=== PATIENT | female | born 1945 | race American Indian/Alaskan Native ===

== ENCOUNTER 2017-02-02 05:20 | Inpatient (IN) | payer MEDICARE, BC ==
[2017-02-02 05:33] VITALS: BMI 26.2
[2017-02-02] MEDS ORDERED: Pantoprazole 40 MG in Sodium Chloride 0.9% 100 ML IV STA (05:40)
[2017-02-02] MEDS ORDERED: Sodium Chloride 0.9% 1,000 ML IV STA (05:40)
[2017-02-02] MEDS ORDERED: Morphine 2 mg/ml ISec IVP STA (05:41)
[2017-02-02 05:59] LABS: PH,URINE 7.5 (4.7-8.0); URINE BILIRUBIN NEGATIVE (NEGATIVE); URINE BLOOD TRACE-INTACT (NEGATIVE); URINE GLUCOSE (UA) 500 mg/dL (NEGATIVE); URINE KETONE NEGATIVE (NEGATIVE); URINE LEUKOCYTE ESTERASE MODERATE Leu/uL (NEGATIVE); URINE PROTEIN 30 mg/dL (<30 mg/dL)
--- NOTE | 2017-02-02 06:10 | ED PDOC ---
Arrival/HPI - General Chief Complaint: Abdominal Pain Time Seen by Provider: 02/02/17 05:24 Historian: Patient - History of Present Illness Narrative History of Present Illness (Text): 02/02/17 06:06 Lisa Blake is a 71 year old female, whose past medical history includes CAD with stents, anemia, diabetes, and hypertension, presents to the emergency department complaining of abdominal pain associated with nausea and vomiting since 10 p.m. last night. No relieving or exacerbating factors. Denies fever, chills, headache, dizziness, diarrhea, urinary symptoms, or any other complaints at this time. Time/Duration: Other (10 pm last night ) Symptom Onset: Gradual Symptom Course: Unchanged Severity Level: Mild Activities at Onset: Light Context: Home Past Medical History - Provider Review Nursing Documentation Reviewed: Yes - Infectious Disease Hx of Infectious Diseases: None - Reproductive Menopause: Yes - Cardiac Hx Hypertension: Yes - Endocrine/Metabolic Hx Diabetes Mellitus Type 1: Yes - Hematological/Oncological Hx Anemia: Yes - Psychiatric Hx Substance Use: No - Surgical History Hx Cardiac Catheterization: Yes (2 stents) - Anesthesia Hx Anesthesia: Yes Hx Anesthesia Reactions: No Hx Malignant Hyperthermia: No Family/Social History - Physician Review Nursing Documentation Reviewed: Yes Family/Social History: No Known Family HX Smoking Status: Never Smoked Hx Alcohol Use: No Hx Substance Use: No Allergies/Home Meds Allergies/Adverse Reactions: Allergies No Known Allergies Allergy (Verified 02/02/17 05:37) Home Medications: Home Meds Medication Instructions Recorded Confirmed Metformin HCl [Metformin] 1,000 mg PO DAILY 04/10/12 02/06/17 Nebivolol [Bystolic] 5 mg PO HS 04/10/12 02/06/17 Fesoterodine Fumarate [Toviaz] 4 mg PO DAILY 06/11/15 02/06/17 Aspirin [Adult Low Dose Aspirin EC] 81 mg PO AMHS 12/20/16 02/06/17 Folic Acid 1 mg PO BID 12/20/16 02/06/17 GlipiZIDE [Glucotrol] 20 mg PO DAILY 12/20/16 02/06/17 Pantoprazole Sodium [Protonix] 1 tab PO DAILY 02/02/17 02/06/17 Review of Systems - Physician Review All systems were reviewed & negative as marked: Yes - Review of Systems Constitutional: Normal. absent: Fatigue, Fevers Respiratory: Normal. absent: SOB, Cough Cardiovascular: Normal. absent: Chest Pain Gastrointestinal: Abdominal Pain, Nausea, Vomiting. absent: Diarrhea Genitourinary Female: Normal. absent: Dysuria Neurological: Normal. absent: Headache, Dizziness Psychiatric: Normal Physical Exam Vital Signs Reviewed: Yes Vital Signs Temp Pulse Resp BP Pulse Ox 02/02/17 14:53 100.8 F H 112 H 18 148/78 99 02/02/17 11:35 98.5 F 92 H 18 183/84 H 99 02/02/17 08:31 98.7 F 82 18 173/67 H 99 02/02/17 07:30 82 18 168/90 H 98 02/02/17 05:43 98.2 F 02/02/17 05:33 76 18 169/86 H 100 Temperature: Afebrile Blood Pressure: Hypertensive Pulse: Regular Respiratory Rate: Normal Appearance: Positive for: Well-Appearing, Non-Toxic, Comfortable Pain Distress: None Mental Status: Positive for: Alert and Oriented X 3 - Systems Exam Head: Present: Atraumatic, Normocephalic Pupils: Present: PERRL Extroacular Muscles: Present: EOMI Conjunctiva: Present: Normal Respiratory/Chest: Present: Clear to Auscultation, Good Air Exchange. No: Respiratory Distress, Accessory Muscle Use Cardiovascular: Present: Regular Rate and Rhythm, Normal S1, S2. No: Murmurs Abdomen: No: Tenderness, Distention, Normal Bowel Sounds ( distant bowel sounds ), Peritoneal Signs Upper Extremity: Present: Normal Inspection. No: Cyanosis, Edema Lower Extremity: Present: Normal Inspection. No: Edema Neurological: Present: GCS=15, CN II-XII Intact, Speech Normal Skin: Present: Warm, Dry, Normal Color. No: Rashes Psychiatric: Present: Alert, Oriented x 3, Normal Insight, Normal Concentration Medical Decision Making ED Course and Treatment: 02/02/17 06:11 Impression: A 71 year old female who presents to the emergency department complaining of abdominal pain associated with nausea and vomiting since 10 pm last night. Plan: -- CT abdomen pelvis -- EKG -- Labs, cardiac enzymes -- Morphine -- Protonix -- IV fluids -- Blood culture -- Urine culture -- Urinalysis -- Reassess and disposition Progress Notes: 02/02/17 06:13 EKG reviewed by me: NSR @ 79 bpm. Normal [place]. Normal interval. - Lab Interpretations Microbiology Results: Microbiology Results 02/02/17 06:30 Blood-Venous Blood Culture - Preliminary NO GROWTH AFTER 4 DAYS 02/02/17 06:00 Blood-Venous Blood Culture - Preliminary NO GROWTH AFTER 4 DAYS 02/02/17 05:50 Urine,Clean Catch Urine Culture - Final 10-50,000 CFU/ML. MULTIPLE SPECIES. PROBABLE CONTAMINATION. Lab Results: 02/02/17 06:00 02/02/17 06:00 Lab Results 02/02/17 12:50: Triglycerides 67, Cholesterol 110 L, LDL Cholesterol Direct 54, HDL Cholesterol 34 02/02/17 08:30: pO2 196 H, VBG pH 7.38, VBG pCO2 42.0, VBG HCO3 24.8, VBG Total CO2 26.1, VBG O2 Sat (Calc) 99.2 H, VBG Base Excess -0.4 L, VBG Potassium 4.4, Sodium 135.0, Chloride 104.0, Glucose 278 H, Lactate 1.6, FiO2 21.0, Venous Blood Potassium 4.4 02/02/17 06:00: WBC 13.1 H D, RBC 5.05, Hgb 9.8 L, Hct 29.2 L, MCV 57.8 L, MCH 19.4 L, MCHC 33.6, RDW 31.6 H, Plt Count 338, Neutrophils % (Manual) 69, Band Neutrophils % 1, Lymphocytes % (Manual) 24, Monocytes % (Manual) 5, Eosinophils % (Manual) 1, Nucleated RBC % 4, Platelet Evaluation Normal, Hypochromasia 3+, Anisocytosis (manual) Slight, Microcytosis (manual) Slight, PT 11.7, INR 1.08, APTT 28.0, Sodium 135, Chloride 98, Potassium 4.3, Carbon Dioxide 25, Anion Gap 16, BUN 13, Creatinine 1.1, Est GFR ( Amer) 59, Est GFR (Non-Af Amer) 49 , Random Glucose 258 H, Calcium 9.6, Total Bilirubin 1.4 H, AST 24, ALT 12, Alkaline Phosphatase 72, Lactate Dehydrogenase 390, Total Creatine Kinase 24 L, Troponin I < 0.01, Total Protein 8.8 H, Albumin 4.4, Globulin 4.4, Albumin/ Globulin Ratio 1.0 L, Amylase 109, Lipase 67 02/02/17 05:50: Urine Color Yellow, Urine Appearance Cloudy, Urine pH 7.5, Ur Specific [place] 1.025, Urine Protein 30 H, Urine Glucose (UA) 500 H, Urine Ketones Negative, Urine Blood Trace-intact H, Urine Nitrate Negative, Urine Bilirubin Negative, Urine Urobilinogen 1.0 H, Ur Leukocyte Esterase Moderate H, Urine RBC 1 - 3, Urine WBC 2 - 5, Ur Epithelial Cells 1 - 3, Urine Bacteria Small, Urine Other Uyeast - RAD Interpretation Radiology Orders: 02/02/17 05:40 ABD & PELVIS W/O PO OR IV CONT [CT] Stat 02/02/17 07:31 ABDOMEN COMPLETE [US] Stat 02/02/17 09:34 BILIARY SCAN (HIDA) [NM] Stat - Medication Orders Current Medication Orders: Discontinued Medications Acetaminophen (Tylenol 325mg Tab) Confirm Administered Dose 650 mg .ROUTE .STK- MED ONE Stop: 02/02/17 14:59 Last Admin: 02/02/17 14:59 Dose: 650 MG Comments: vo dr stubbs/trey [facility] Pain/Vitals Document 02/02/17 14:59 SZA (Rec: 02/02/17 15:10 SZA [id number]) Pain Reassessment Is This A Pain ReAssessment? No Sleep Is patient sleeping during reassessment? No Presence of Pain Presence of Pain No Acetaminophen (Tylenol 325mg Tab) 650 mg PO Q6H PRN PRN Reason: Temperature Last Admin: 02/06/17 05:15 Dose: 650 MG Re-Assess: [facility] Pain/Vitals Document 02/06/17 07:30 SD (Rec: 02/06/17 07:52 SD [id number]) Vitals Temperature (97.6 F-99.6 F) 99.4 F Temperature Source Oral Bacitracin (Bacitracin) Confirm Administered Dose 50,000 unit .ROUTE .STK-MED ONE Stop: 02/02/17 21:58 Bupivacaine HCl (Marcaine 0.5%) Confirm Administered Dose 30 ml .ROUTE .STK-MED ONE Stop: 02/02/17 20:23 Last Admin: 02/02/17 22:22 Dose: 15 ML Cyproheptadine HCl (Periactin) 4 mg PO BID GEMINI Last Admin: 02/06/17 09:11 Dose: 4 MG Esmolol HCl (Brevibloc) Confirm Administered Dose 100 mg IV .STK-MED ONE Stop: 02/02/17 21:17 Esmolol HCl (Brevibloc) Confirm Administered Dose 100 mg IV .STK-MED ONE Stop: 02/02/17 21:19 Etomidate (Amidate) Confirm Administered Dose 20 mg IV .STK-MED ONE Stop: 02/02/17 20:55 Fentanyl (Fentanyl) Confirm Administered Dose 100 mcg .ROUTE .STK-MED ONE Stop: 02/02/17 20:51 Glycopyrrolate (Robinul) Confirm Administered Dose 0.4 mg .ROUTE .STK-MED ONE Stop: 02/02/17 22:29 Heparin Sodium (Porcine) (Heparin) 5,000 units SC Q12 GEMINI PRN Reason: Protocol Last Admin: 02/06/17 09:11 Dose: Not Given Non-Admin Reason: Patient Refused Home Med (Home Med) 1 unit PO DAILY [facility] Last Admin: 02/05/17 11:07 Dose: 1 UNIT Home Med (Home Med) 1 unit PO DAILY [facility] Last Admin: 02/06/17 09:10 Dose: 1 UNIT Comments: last pill, bottle given to patient need to bring in refill. TCU made aware when given report Hydromorphone HCl (Dilaudid) 0.5 mg IVP Q4H PRN PRN Reason: Pain, moderate (4-7) Last Admin: 02/04/17 02:09 Dose: 0.5 MG MAR Pain Assessment Document 02/04/17 02:09 [facility] [place]Rec: 02/04/17 02:[address]) Pain Reassessment Is this a pain reassessment? No Presence of Pain Presence of Pain Yes Pain Scale Used Pain Scale Used Numeric Location Pain Location Body Site Abdomen Description Description Pressure Intensity of Pain at present 8 Pain Behavior Restlessness Facial Grimacing Alleviating Factors/Management Medication Techniques Alleviating Factors Medication IVP Administration Document 02/04/17 02:09 [facility] [place]Rec: 02/04/17 02:[address]) Charges for Administration # of IVP Administrations 1 Hydromorphone HCl (Dilaudid) 0.5 mg IVP Q15M PRN PRN Reason: Pain, moderate (4-7) Stop: 02/03/17 00:42 Sodium Chloride (Sodium Chloride 0.9%) 1,000 mls @ 100 mls/hr IV .Q10H STA Stop: 02/02/17 15:39 Last Admin: 02/02/17 06:20 Dose: 100 MLS/HR eMAR Start Stop Document 02/02/17 06:20 DINH (Rec: 02/02/17 06:21 DINH [id number]) Intravenous Solution Start Date 02/02/17 Start Time 06:21 End Date 02/02/17 End time 14:00 Total Infusion Time 459 Pantoprazole Sodium 40 mg/ (Sodium Chloride) 100 mls @ 400 mls/hr IV STAT STA Stop: 02/02/17 05:54 Last Admin: 02/02/17 06:15 Dose: 400 MLS/HR eMAR Start Stop Document 02/02/17 06:15 DINH (Rec: 02/02/17 06:[address]) Intravenous Solution Start Date 02/02/17 Start Time 06:15 Metronidazole (Flagyl) 100 mls @ 100 mls/hr IVPB Q8 GEMINI PRN Reason: Protocol Last Admin: 02/03/17 06:25 Dose: 100 MLS/HR eMAR Start Stop Document 02/03/17 06:25 STOCP (Rec: 02/03/17 06:25 STOCP [id number]) Intravenous Solution Start Date 02/03/17 Start Time 06:25 End Date 02/03/17 End time 07:25 Total Infusion Time 60 Piperacillin Sod/Tazobactam Sod (Zosyn 3.375 In Ns 100ml) 100 mls @ 200 mls/hr IVPB Q6 GEMINI PRN Reason: Protocol Stop: 02/05/17 12:29 Last Admin: 02/02/17 19:00 Dose: 200 MLS/HR eMAR Start Stop Document 02/02/17 19:00 SD (Rec: 02/02/17 19:00 SD [id number]) Intravenous Solution Start Date 02/02/17 Start Time 19:00 End Date 02/02/17 End time 19:30 Total Infusion Time 30 Dextrose/Sodium Chloride (Dextrose 5%/0.45% Ns 1000 Ml) 1,000 mls @ 80 mls/hr IV .[id number] [facility] Last Admin: 02/02/17 14:03 Dose: 80 MLS/HR eMAR Start Stop Document 02/02/17 14:03 SZA (Rec: 02/02/17 14:04 SZA [id number]) Intravenous Solution Start Date 02/02/17 Start Time 14:00 Vancomycin HCl (Vancomycin 1gm) 250 mls @ 167 mls/hr IVPB STAT STA PRN Reason: Protocol Stop: 02/02/17 21:27 Last Admin: 02/02/17 20:07 Dose: 167 MLS/HR eMAR Start Stop Document 02/02/17 20:07 STOCP (Rec: 02/02/17 20:07 [id number]) Intravenous Solution Start Date 02/02/17 Start Time 20:07 End Date 02/02/17 End time 21:37 Total Infusion Time 90 Lactated Ringer's (Lactated Ringer's) 1,000 mls @ 75 mls/hr IV .[id number] GEMINI Stop: 02/03/17 00:46 Piperacillin Sod/Tazobactam Sod (Zosyn 2.25 Gm In 0.9% 100 Ml) 100 mls @ 200 mls/hr IVPB Q6 GEMINI PRN Reason: Protocol Stop: 02/09/17 18:01 Last Admin: 02/03/17 05:13 Dose: 200 MLS/HR eMAR Start Stop Document 02/03/17 05:13 STOCP (Rec: 02/03/17 05:13 [id number]) Intravenous Solution Start Date 02/03/17 Start Time 05:13 End Date 02/03/17 End time 05:43 Total Infusion Time 30 Lactated Ringer's (Lactated Ringer's) 1,000 mls @ 125 mls/hr IV .Q8H GEMINI Last Admin: 02/03/17 00:47 Dose: 125 MLS/HR eMAR Start Stop Document 02/03/17 00:47 STOCP (Rec: 02/03/17 00:47 [id number]) Intravenous Solution Start Date 02/03/17 Start Time 00:47 Daptomycin 400 mg/ Sodium (Chloride) 100 mls @ 200 mls/hr IV Q24H GEMINI PRN Reason: Protocol Stop: 02/02/17 23:14 Last Admin: 02/03/17 01:03 Dose: 200 MLS/HR eMAR Start Stop Document 02/03/17 01:03 STOCP (Rec: 02/03/17 01:03 STOCP [facility] [id number][place] Intravenous Solution Start Date 02/03/17 Start Time 01:03 End Date 02/03/17 End time 01:33 Total Infusion Time 30 Magnesium Sulfate 2 gm/ Sodium (Chloride) 104 mls @ 102 mls/hr IVPB Q2H GEMINI Stop: 02/03/17 11:02 Last Admin: 02/03/17 11:52 Dose: 102 MLS/HR eMAR Start Stop Document 02/03/17 11:52 DM (Rec: 02/03/17 11:53 [facility] [id number]) Intravenous Solution Start Date 02/03/17 Start Time 11:52 End Date 02/03/17 End time 12:52 Total Infusion Time 60 Meropenem 1g/NS 100mL IVPB (Meropenem 1g/Ns 100ml Ivpb) 100 mls @ 100 mls/hr IVPB Q12 GEMINI PRN Reason: Protocol Stop: 02/10/17 09:01 Last Admin: 02/06/17 09:09 Dose: 100 MLS/HR eMAR Start Stop Document 02/06/17 09:09 SD (Rec: 02/06/17 09:10 SD [id number]) Intravenous Solution Start Date 02/06/17 Start Time 09:10 End Date 02/06/17 End time 10:10 Total Infusion Time 60 Sodium Chloride (Sodium Chloride 0.9%) 1,000 mls @ 100 mls/hr IV .Q10H GEMINI Magnesium Sulfate 2 gm/ Sodium (Chloride) 104 mls @ 102 mls/hr IVPB Q3H GEMINI Stop: 02/03/17 15:17 Sodium Chloride (Sodium Chloride 0.9%) 1,000 mls @ 50 mls/hr IV .Q20H GEMINI Sodium Chloride (Sodium Chloride 0.9%) 1,000 mls @ 50 mls/hr IV .Q20H GEMINI Last Admin: 02/05/17 17:25 Dose: 50 MLS/HR eMAR Start Stop Document 02/05/17 17:25 SD (Rec: 02/05/17 17:25 SD [id number]) Intravenous Solution Start Date 02/05/17 Start Time 17:25 Influenza Virus Vaccine (Fluvirin) 45 mcg IM .ONCE ONE Stop: 02/02/17 16:54 Insulin Human Lispro (Humalog Med) 0 units SC Q6H [facility] Last Admin: 02/02/17 19:01 Dose: 2 UNITS MAR Blood Glucose Document 02/02/17 19:01 SD (Rec: 02/02/17 19:01 SD [id number]) Blood Glucose Finger Stick Blood Glucose (70-120) 235 Subcutaneous Administrations Document 02/02/17 19:01 SD (Rec: 02/02/17 19:01 SD [id number]) Injection Site MAR Injection Site Right Arm Charges for Administration # of Subcutaneous Administrations 1 Insulin Human Lispro (Humalog Med) 0 units SC ACHS [facility] Last Admin: 02/06/17 11:33 Dose: 1 UNITS MAR Blood Glucose Document 02/06/17 11:33 SD (Rec: 02/06/17 11:33 SD [id number]) Blood Glucose Finger Stick Blood Glucose (70-120) 167 Subcutaneous Administrations Document 02/06/17 11:33 SD (Rec: 02/06/17 11:33 SD [id number]) Injection Site MAR Injection Site Left Arm Charges for Administration # of Subcutaneous Administrations 1 Iohexol (Omnipaque 240 (50 Ml)) Confirm Administered Dose 50 ml .ROUTE .STK-MED ONE Stop: 02/02/17 09:38 Iohexol (Omnipaque 240 (50 Ml)) Confirm Administered Dose 50 ml .ROUTE .STK-MED ONE Stop: 02/02/17 20:23 Last Admin: 02/02/17 21:43 Dose: 30 ML Metoclopramide HCl (Reglan) 5 mg IVP Q6H [facility] Last Admin: 02/04/17 06:24 Dose: 5 MG IVP Administration Document 02/04/17 06:24 MCV (Rec: 02/04/17 06:24 MCV [id number]) Charges for Administration # of IVP Administrations 1 Metoclopramide HCl (Reglan) 5 mg IVP Q12 [facility] Last Admin: 02/06/17 09:11 Dose: 5 MG IVP Administration Document 02/06/17 09:11 SD (Rec: 02/06/17 09:12 SD [id number]) Charges for Administration # of IVP Administrations 1 Metoprolol Tartrate (Lopressor) 25 mg PO BID [facility] Last Admin: 02/04/17 06:36 Dose: 25 MG MAR Pulse and Blood Pressure Document 02/04/17 06:36 MCV (Rec: 02/04/17 06:38 MCV [id number]) Pulse Pulse Rate (60-90) 99 Blood Pressure Blood Pressure (100/60-150/90) 178/82 Metoprolol Tartrate (Lopressor) 25 mg PO Q8H [facility] Last Admin: 02/05/17 06:33 Dose: 25 MG MAR Pulse and Blood Pressure Document 02/05/17 06:33 KT (Rec: 02/05/17 06:35 KT [id number]) Pulse Pulse Rate (60-90) 93 Blood Pressure Blood Pressure (100/60-150/90) 163/87 Metoprolol Tartrate (Lopressor) 50 mg PO BID [facility] Last Admin: 02/06/17 09:11 Dose: 50 MG MAR Pulse and Blood Pressure Document 02/06/17 09:11 SD (Rec: 02/06/17 09:11 SD [id number]) Pulse Pulse Rate (60-90) 96 Blood Pressure Blood Pressure (100/60-150/90) 165/78 Midazolam HCl (Versed Inj) Confirm Administered Dose 2 mg .ROUTE .STK-MED ONE Stop: 02/02/17 20:51 Morphine Sulfate (Morphine) 2 mg IVP STAT STA Stop: 02/02/17 05:42 Last Admin: 02/02/17 06:15 Dose: 2 MG MAR Pain Assessment Document 02/02/17 06:15 DINH (Rec: 02/02/17 06:15 DINH [id number]) Pain Reassessment Is this a pain reassessment? Yes Sleep Is patient sleeping during reassessment? No Location Pain Location Body Site Abdomen IVP Administration Document 02/02/17 06:15 DINH (Rec: 02/02/17 06:15 DINH [id number]) Charges for Administration # of IVP Administrations 1 Morphine Sulfate (Morphine) 5 mg IVP STAT STA Stop: 02/02/17 07:29 Last Admin: 02/02/17 08:10 Dose: 5 MG MAR Pain Assessment Document 02/02/17 08:10 SZA (Rec: 02/02/17 08:13 SZA [id number]) Pain Reassessment Is this a pain reassessment? No Sleep Is patient sleeping during reassessment? No Pain Scale Used Pain Scale Used Numeric IVP Administration Document 02/02/17 08:10 CONNOR (Rec: 02/02/17 08:13 [id number] Charges for Administration # of IVP Administrations 1 Morphine Sulfate (Morphine) 4 mg IV STAT STA Stop: 02/02/17 13:49 Last Admin: 02/02/17 14:04 Dose: 4 MG MAR Pain Assessment Document 02/02/17 14:04 CONNOR (Rec: 02/02/17 14:04 [id number] Pain Reassessment Is this a pain reassessment? No Sleep Is patient sleeping during reassessment? No Presence of Pain Presence of Pain Yes eMAR Start Stop Document 02/02/17 14:04 CONNOR (Rec: 02/02/17 14:04 [id number] Intravenous Solution Start Date 02/02/17 Start Time 01:00 Neostigmine Methylsulfate (Neostigmine Methylsulfate) Confirm Administered Dose 3 mg IV .STK-MED ONE Stop: 02/02/17 22:29 Nitroglycerin (Nitro-Bid 2% Oint) 1 ea TOP Q6H [facility] Last Admin: 02/04/17 06:25 Dose: 1 EA Ondansetron HCl (Zofran Inj) 4 mg IVP ONCE PRN PRN Reason: Nausea/Vomiting Stop: 02/02/17 22:43 Pantoprazole Sodium (Protonix Inj) 40 mg IVP Q12 [facility] Last Admin: 02/04/17 10:33 Dose: 40 MG IVP Administration Document 02/04/17 10:33 SES (Rec: 02/04/17 10:33 [id number]) Charges for Administration # of IVP Administrations 1 Pantoprazole Sodium (Protonix Ec Tab) 40 mg PO 0730,1630 [facility] Last Admin: 02/06/17 09:11 Dose: 40 MG Pneumococcal Polyvalent Vaccine (Pneumovax 23 Vaccine) 0.5 ml IM .ONCE ONE Stop: 02/02/17 16:54 Rocuronium [place] (Zemuron) Confirm Administered Dose 50 mg .ROUTE .STK-MED ONE Stop: 02/02/17 21:05 Succinylcholine Chloride (Quelicin) Confirm Administered Dose 200 mg IV .STK- MED ONE Stop: 02/02/17 21:05 Ursodiol (Actigall) 300 mg PO STAT STA Stop: 02/02/17 09:49 Last Admin: 02/02/17 14:05 Dose: 300 MG Ursodiol (Actigall) 300 mg PO BID GEMINI Last Admin: 02/06/17 09:11 Dose: 300 MG Valsartan (Diovan) 320 mg PO DAILY G[facility]I Last Admin: 02/06/17 09:11 Dose: 320 MG Zolpidem Tartrate (Ambien) 5 mg PO ONCE ONE PRN Reason: Protocol Stop: 02/04/17 22:17 Last Admin: 02/04/17 22:48 Dose: 5 MG Zolpidem Tartrate (Ambien) 5 mg PO HS PRN; Protocol PRN Reason: Insomnia Last Admin: 02/05/17 22:01 Dose: 5 MG Re-Assess: Reassess Psych Meds Document 02/05/17 23:01 B.P (Rec: 02/06/17 01:14 B.P [id number]) Reassess Psych Med Effective - Transfer of Care Patient signed out to Dr:: enoc Gtz Statement The provider has reviewed the documentation as recorded by the Anneliese Gonzalez Provider Attestation: All medical record entries made by the Anneliese were at my direction and personally dictated by me. I have reviewed the chart and agree that the record accurately reflects my personal performance of the history, physical exam, medical decision making, and the department course for this patient. I have also personally directed, reviewed, and agree with the discharge instructions and disposition. Disposition/Present on Arrival - Present on Arrival Any Indicators Present on Arrival: No History of DVT/PE: No History of Uncontrolled Diabetes: No Urinary Catheter: No History of Decub. Ulcer: No History Surgical Site Infection Following: None - Disposition Have Diagnosis and Disposition been Completed?: Yes Diagnosis: Cholecystitis Disposition: HOSPITALIZED Disposition Time: 07:00 Patient Problems: Current Active Problems Problem Status Diagnosed Cholecystitis Acute Condition: FAIR
[2017-02-02 06:11] LABS: URINE APPEARANCE CLOUDY (CLEAR); URINE COLOR YELLOW (YELLOW)
[2017-02-02 06:13] LABS: URINE BACTERIA SMALL (NEG)
[2017-02-02 06:18] LABS: HEMATOCRIT 29.2 % (36.0-48.0); MEAN CELL VOLUME 57.8 fL (80.0-105.0); MEAN CORPUSCULAR HEMOGLOBIN 19.4 pg (25.0-35.0); MEAN CORPUSCULAR HGB CONC 33.6 g/dl (31.0-37.0); PLATELET COUNT 338 10^3/uL (120.0-450.0); RED CELL DISTRIBUTION WIDTH 31.6 % (11.5-14.5); WHITE BLOOD COUNT 13.1 10^3/ul (4.5-11.0)
[2017-02-02 06:23] LABS: INR 1.08 (0.93-1.08)
[2017-02-02 06:28] LABS: ALKALINE PHOSPHATASE 72 U/L (38-133); ALT/SGPT 12 U/L (7-56); AMYLASE 109 U/L (35-125); AST/SGOT 24 U/L (15-39); BILIRUBIN,TOTAL 1.4 mg/dL (0.2-1.3); BLOOD UREA NITROGEN 13 mg/dL (7-21); CALCIUM 9.6 mg/dL (8.4-10.5); CARBON DIOXIDE 25 mmol/L (21-33); CHLORIDE 98 mmol/L (98-107); GFR AFRICAN-AMERICAN 59; GLUCOSE,RANDOM 258 mg/dL (70-110); LIPASE 67 U/L (23-300); POTASSIUM 4.3 mmol/L (3.6-5.0); SODIUM 135 mmol/L (132-148); TOTAL PROTEIN 8.8 g/dL (5.8-8.3)
[2017-02-02 06:32] LABS: ADD MANUAL DIFF? YES
[2017-02-02 06:49] LABS: TROPONIN I < 0.01 ng/mL
[2017-02-02 07:06] LABS: BAND 1 % (0-2); NEUTROPHIL 69 % (50.0-70.0)
[2017-02-02 07:07] LABS: EOSINOPHIL 1 % (0.0-3.0)
[2017-02-02 07:08] LABS: HYPOCHROMIA 3+; NUCLEATED RED BLOOD CELL 4 %; PLATELET ESTIMATE NORMAL (NORMAL)
[2017-02-02 07:09] LABS: ANISOCYTOSIS SLIGHT; MICROCYTOSIS SLIGHT
--- NOTE | 2017-02-02 07:11 | CT ---
EXAM: CT Abdomen and Pelvis Without Intravenous Contrast. CLINICAL HISTORY: 71 years old, female; Pain; Abdominal pain; Generalized; Additional info: Abd pain TECHNIQUE: Axial computed tomography images of the abdomen and pelvis without intravenous contrast. This CT exam was performed using one or more of the following dose reduction techniques: automated exposure control, adjustment of the mA and/or kV according to patient size, and/or use of iterative reconstruction technique. Coronal and sagittal reformatted images were created and reviewed. COMPARISON: No relevant prior studies available. FINDINGS: Lower thorax: There is minimal bibasilar atelectasis. ABDOMEN: Liver: There are no focal liver lesions present. Gallbladder and bile ducts: Multiple calcified gallstones are present. Gallbladder is moderately distended measuring 8 x 3.7 CM. If indicated, gallbladder could be further evaluated with clinical quadrant sonogram or HIDA scan. This impression. No ductal dilation. Pancreas: Pancreas is slightly fatty replaced. No ductal dilation. Spleen: The spleen is normal. Adrenals: The adrenal glands are normal. Kidneys and ureters: The kidneys are normal. No obstructing stones. No hydronephrosis. Stomach and bowel: The stomach is normal. Colonic constipation is present. There is no evidence of intestinal obstruction. No mucosal thickening. Appendix: A normal appendix is identified. PELVIS: Bladder: The bladder is normal. No stones. Reproductive: The uterus is normal. ABDOMEN and PELVIS: Intraperitoneal space: There is no evidence of free intraperitoneal fluid. There is no free intraperitoneal air. Bones/joints: There are mild degenerative changes present. There is mild diffuse osteopenia. No acute fracture. No dislocation. Soft tissues: Unremarkable. Vasculature: The aorta is normal. No abdominal aortic aneurysm. Lymph nodes: There is no evidence of lymphadenopathy. IMPRESSION: No acute findings.
--- NOTE | 2017-02-02 07:24 | ED PDOC ---
Physical Exam Vital Signs Reviewed: Yes Vital Signs Temp Pulse Resp BP Pulse Ox 02/02/17 14:53 100.8 F H 112 H 18 148/78 99 02/02/17 11:35 98.5 F 92 H 18 183/84 H 99 02/02/17 08:31 98.7 F 82 18 173/67 H 99 02/02/17 07:30 82 18 168/90 H 98 02/02/17 05:43 98.2 F 02/02/17 05:33 76 18 169/86 H 100 Temperature: Afebrile Blood Pressure: Hypertensive Pulse: Regular Respiratory Rate: Normal Appearance: Positive for: Well-Appearing, Non-Toxic, Comfortable Pain Distress: None Mental Status: Positive for: Alert and Oriented X 3 Medical Decision Making ED Course and Treatment: 02/02/17 07:00 Case signed out to me from overnight by Dr. Meredith, pending imaging, reevaluation and final disposition. The patient is a 71 year old female who presented to the emergency department earlier today for evaluation of abdominal pain which is associated with nausea and vomiting. On reevaluation, the patient patient she still has some generalized abdominal pain. On examination patient has some tenderness with palpation of the periumbilical region. EKG: Ordered, reviewed, and independently interpreted the EKG. Rate : 79 BPM Rhythm : NSR Interpretation : No ST-segment elevations or depressions, no T-wave inversions, normal intervals. 02/02/17 07:15 Abdomen/Pelvis CT: Creator : LAMAR GIRON COMPARISON: No relevant prior studies available. FINDINGS: Lower thorax: There is minimal bibasilar atelectasis. ABDOMEN: Liver: There are no focal liver lesions present. Gallbladder and bile ducts: Multiple calcified gallstones are present. Gallbladder is moderately distended measuring 8 x 3.7 CM. If indicated, gallbladder could be further evaluated with clinical quadrant sonogram or HIDA scan. This impression. No ductal dilation. Pancreas: Pancreas is slightly fatty replaced. No ductal dilation. Spleen: The spleen is normal. Adrenals: The adrenal glands are normal. Kidneys and ureters: The kidneys are normal. No obstructing stones. No hydronephrosis. Stomach and bowel: The stomach is normal. Colonic constipation is present. There is no evidence of intestinal obstruction. No mucosal thickening. Appendix: A normal appendix is identified. PELVIS: Bladder: The bladder is normal. No stones. Reproductive: The uterus is normal. ABDOMEN and PELVIS: Intraperitoneal space: There is no evidence of free intraperitoneal fluid. There is no free intraperitoneal air. Bones/joints: There are mild degenerative changes present. There is mild diffuse osteopenia. No acute fracture. No dislocation. Soft tissues: Unremarkable. Vasculature: The aorta is normal. No abdominal aortic aneurysm. Lymph nodes: There is no evidence of lymphadenopathy. IMPRESSION: No acute findings. 02/02/17 07:31 On reevaluation the patient has some tenderness with palpation to the right upper quadrant. Will order a ultrasound of the abdomen. 13:50 - Pt has cholecystitis. Will admit. Surgery has evaluated the pt. Dr. Humphries agrees w/ need for admission. - Lab Interpretations Lab Results: 02/02/17 06:00 02/02/17 06:00 Lab Results 02/02/17 12:50: Triglycerides 67, Cholesterol 110 L, LDL Cholesterol Direct 54, HDL Cholesterol 34 02/02/17 08:30: pO2 196 H, VBG pH 7.38, VBG pCO2 42.0, VBG HCO3 24.8, VBG Total CO2 26.1, VBG O2 Sat (Calc) 99.2 H, VBG Base Excess -0.4 L, VBG Potassium 4.4, Sodium 135.0, Chloride 104.0, Glucose 278 H, Lactate 1.6, FiO2 21.0, Venous Blood Potassium 4.4 02/02/17 06:00: WBC 13.1 H D, RBC 5.05, Hgb 9.8 L, Hct 29.2 L, MCV 57.8 L, MCH 19.4 L, MCHC 33.6, RDW 31.6 H, Plt Count 338, Neutrophils % (Manual) 69, Band Neutrophils % 1, Lymphocytes % (Manual) 24, Monocytes % (Manual) 5, Eosinophils % (Manual) 1, Nucleated RBC % 4, Platelet Evaluation Normal, Hypochromasia 3+, Anisocytosis (manual) Slight, Microcytosis (manual) Slight, PT 11.7, INR 1.08, APTT 28.0, Sodium 135, Chloride 98, Potassium 4.3, Carbon Dioxide 25, Anion Gap 16, BUN 13, Creatinine 1.1, Est GFR ( Amer) 59, Est GFR (Non-Af Amer) 49 , Random Glucose 258 H, Calcium 9.6, Total Bilirubin 1.4 H, AST 24, ALT 12, Alkaline Phosphatase 72, Lactate Dehydrogenase 390, Total Creatine Kinase 24 L, Troponin I < 0.01, Total Protein 8.8 H, Albumin 4.4, Globulin 4.4, Albumin/ Globulin Ratio 1.0 L, Amylase 109, Lipase 67 02/02/17 05:50: Urine Color Yellow, Urine Appearance Cloudy, Urine pH 7.5, Ur Specific [place] 1.025, Urine Protein 30 H, Urine Glucose (UA) 500 H, Urine Ketones Negative, Urine Blood Trace-intact H, Urine Nitrate Negative, Urine Bilirubin Negative, Urine Urobilinogen 1.0 H, Ur Leukocyte Esterase Moderate H, Urine RBC 1 - 3, Urine WBC 2 - 5, Ur Epithelial Cells 1 - 3, Urine Bacteria Small, Urine Other Uyeast I have reviewed the lab results: Yes - RAD Interpretation Radiology Orders: 02/02/17 05:40 ABD & PELVIS W/O PO OR IV CONT [CT] Stat 02/02/17 07:31 ABDOMEN COMPLETE [US] Stat 02/02/17 09:34 BILIARY SCAN (HIDA) [NM] Stat - Medication Orders Current Medication Orders: Acetaminophen (Tylenol 325mg Tab) 650 mg PO Q6H PRN PRN Reason: Temperature Last Admin: 02/02/17 16:40 Dose: 650 MG MAR Pain/Vitals Document 02/02/17 16:40 SD (Rec: 02/02/17 16:40 SD [id number]) Vitals Temperature (97.6 F-99.6 F) 103.0 F Temperature Source Oral Hydromorphone HCl (Dilaudid) 0.5 mg IVP Q4H PRN PRN Reason: Pain, moderate (4-7) Metronidazole (Flagyl) 100 mls @ 100 mls/hr IVPB Q8 GEMINI PRN Reason: Protocol Last Admin: 02/02/17 14:07 Dose: 100 MLS/HR eMAR Start Stop Document 02/02/17 14:07 CONNOR (Rec: 02/02/17 14:08 CONNOR [id number]) Intravenous Solution Start Date 02/02/17 Start Time 14:08 End Date 02/02/17 End time 14:38 Total Infusion Time 30 Piperacillin Sod/Tazobactam Sod (Zosyn 3.375 In Ns 100ml) 100 mls @ 200 mls/hr IVPB Q6 GEMINI PRN Reason: Protocol Stop: 02/05/17 12:29 Dextrose/Sodium Chloride (Dextrose 5%/0.45% Ns 1000 Ml) 1,000 mls @ 80 mls/hr IV .[id number] [facility] Last Admin: 02/02/17 14:03 Dose: 80 MLS/HR eMAR Start Stop Document 02/02/17 14:03 CONNOR (Rec: 02/02/17 14:[address] [id number] Intravenous Solution Start Date 02/02/17 Start Time 14:00 Insulin Human Lispro (Humalog Med) 0 units SC Q6H [facility] Last Admin: 02/02/17 14:50 Dose: 5 UNITS MAR Blood Glucose Document 02/02/17 14:50 SS (Rec: 02/02/17 14:50 SS [id number]) Blood Glucose Finger Stick Blood Glucose (70-120) 294 Subcutaneous Administrations Document 02/02/17 14:50 SS (Rec: 02/02/17 14:50 SS [id number]) Injection Site MAR Injection Site Left Abdomen Charges for Administration # of Subcutaneous Administrations 1 Metoclopramide HCl (Reglan) 5 mg IVP Q6H [facility] Last Admin: 02/02/17 14:05 Dose: 5 MG IVP Administration Document 02/02/17 14:05 CONNOR (Rec: 02/02/17 14:[address] [id number]) Charges for Administration # of IVP Administrations 1 Nitroglycerin (Nitro-Bid 2% Oint) 1 ea TOP Q6H [facility] Last Admin: 02/02/17 14:08 Dose: 1 EA Ondansetron HCl (Zofran Inj) 4 mg IVP Q4H PRN PRN Reason: Nausea/Vomiting Pantoprazole Sodium (Protonix Inj) 40 mg IVP Q12 [facility] Last Admin: 02/02/17 14:05 Dose: 40 MG IVP Administration Document 02/02/17 14:05 [facility] (Rec: 02/02/17 14:05 [id number] Charges for Administration # of IVP Administrations 1 Discontinued Medications Acetaminophen (Tylenol 325mg Tab) Confirm Administered Dose 650 mg .ROUTE .STK- MED ONE Stop: 02/02/17 14:59 Last Admin: 02/02/17 14:59 Dose: 650 MG Comments: vo dr stubbs/trey PRUITT Pain/Vitals Document 02/02/17 14:59 CONNOR (Rec: 02/02/17 15:10 [facility]NOR [id number]) Pain Reassessment Is This A Pain ReAssessment? No Sleep Is patient sleeping during reassessment? No Presence of Pain Presence of Pain No Sodium Chloride (Sodium Chloride 0.9%) 1,000 mls @ 100 mls/hr IV .Q10H STA Stop: 02/02/17 15:39 Last Admin: 02/02/17 06:20 Dose: 100 MLS/HR eMAR Start Stop Document 02/02/17 06:20 DINH (Rec: 02/02/17 06:21 DINH [id number]) Intravenous Solution Start Date 02/02/17 Start Time 06:21 End Date 02/02/17 End time 14:00 Total Infusion Time 459 Pantoprazole Sodium 40 mg/ (Sodium Chloride) 100 mls @ 400 mls/hr IV STAT STA Stop: 02/02/17 05:54 Last Admin: 02/02/17 06:15 Dose: 400 MLS/HR eMAR Start Stop Document 02/02/17 06:15 DINH (Rec: 02/02/17 06:15 DINH [id number]) Intravenous Solution Start Date 02/02/17 Start Time 06:15 Influenza Virus Vaccine (Fluvirin) 45 mcg IM .ONCE ONE Stop: 02/02/17 16:54 Iohexol (Omnipaque 240 (50 Ml)) Confirm Administered Dose 50 ml .ROUTE .STK-MED ONE Stop: 02/02/17 09:38 Morphine Sulfate (Morphine) 2 mg IVP STAT STA Stop: 02/02/17 05:42 Last Admin: 02/02/17 06:15 Dose: 2 MG MAR Pain Assessment Document 02/02/17 06:15 DINH (Rec: 02/02/17 06:15 DINH [id number]) Pain Reassessment Is this a pain reassessment? Yes Sleep Is patient sleeping during reassessment? No Location Pain Location Body Site Abdomen IVP Administration Document 02/02/17 06:15 DINH (Rec: 02/02/17 06:15 DINH [id number]) Charges for Administration # of IVP Administrations 1 Morphine Sulfate (Morphine) 5 mg IVP STAT STA Stop: 02/02/17 07:29 Last Admin: 02/02/17 08:10 Dose: 5 MG MAR Pain Assessment Document 02/02/17 08:10 CONNOR (Rec: 02/02/17 08:13 [facility] [id number]) Pain Reassessment Is this a pain reassessment? No Sleep Is patient sleeping during reassessment? No Pain Scale Used Pain Scale Used Numeric IVP Administration Document 02/02/17 08:10 CONNOR (Rec: 02/02/17 08:13 [facility] [id number]) Charges for Administration # of IVP Administrations 1 Morphine Sulfate (Morphine) 4 mg IV STAT STA Stop: 02/02/17 13:49 Last Admin: 02/02/17 14:04 Dose: 4 MG MAR Pain Assessment Document 02/02/17 14:04 CONNOR (Rec: 02/02/17 14:04 [id number] Pain Reassessment Is this a pain reassessment? No Sleep Is patient sleeping during reassessment? No Presence of Pain Presence of Pain Yes eMAR Start Stop Document 02/02/17 14:04 CONNOR (Rec: 02/02/17 14:04 [id number]) Intravenous Solution Start Date 02/02/17 Start Time 01:00 Pneumococcal Polyvalent Vaccine (Pneumovax 23 Vaccine) 0.5 ml IM .ONCE ONE Stop: 02/02/17 16:54 Ursodiol (Actigall) 300 mg PO STAT STA Stop: 02/02/17 09:49 Last Admin: 02/02/17 14:05 Dose: 300 MG ED OBSERVATION Date of observation admission: 02/02/17 Time of observation admission: 07:40 - Observation admission statement Patient is being placed in observation because:: abdominal pain - Goals of Observation Goals of observation are:: pain control and obtain series of abdominal examination - Progress Note Progress Note: 02/02/17 08:25 Abdomen Ultrasound: Creator : Adela Aguilar V. COMPARISON: None. FINDINGS: LIVER: Measures 17 cm. -the size is top normal Normal echogenicity of the liver parenchyma. No mass. No intrahepatic bile duct dilatation. GALLBLADDER: The gallbladder is moderately distended with stones gallbladder sludge suggested. No gallbladder wall thickening or pericholecystic fluid suggested. No technologist reported sonographic positive Gil's sign. COMMON BILE DUCT: Measures 6.5 mm. No stones. No dilatation. PANCREAS: Unremarkable as visualized. No mass. No ductal dilatation. RIGHT KIDNEY: Measures 9.9 x 4.1 x 4.1cm. Normal echogenicity. No calculus, mass , or hydronephrosis. LEFT KIDNEY: Measures 9.7 x 4.9 x 4.2cm. Normal echogenicity. No calculus, mass , or hydronephrosis. SPLEEN: Normal in size and contour. No mass. AORTA: No aneurysmal dilatation. IVC: Unremarkable. OTHER FINDINGS: None. IMPRESSION: Multiple gallstones with gallbladder sludge. No ancillary findings to suggest superimposed acute cholecystitis 02/02/17 09:[address] Downs, who is aware and states to order a HIDA scan. 02/02/17 09:[address] Humphries, who states he will come down to the emergency department to see the patient. 02/02/17 09:57 residential program worker made aware. 02/02/17 12:00 On reevaluation, patient is in ultrasound. 02/02/17 13:[address] Humphries, who is aware and agrees with the plan to admit the patient to Med/Surg under his service for abdominal pain. - Scribe Statement The provider has reviewed the documentation as recorded by the Anneliese Brenner Provider Scribe Attestation: All medical record entries made by the Anneliese were at my direction and personally dictated by me. I have reviewed the chart and agree that the record accurately reflects my personal performance of the history, physical exam, medical decision making, and the department course for this patient. I have also personally directed, reviewed, and agree with the discharge instructions and disposition. Disposition/Present on Arrival - Present on Arrival Any Indicators Present on Arrival: No History of DVT/PE: No History of Uncontrolled Diabetes: No Urinary Catheter: No History of Decub. Ulcer: No History Surgical Site Infection Following: None - Disposition Have Diagnosis and Disposition been Completed?: Yes Diagnosis: Cholecystitis Disposition: HOSPITALIZED Disposition Time: 13:55 Patient Plan: Admission Patient Problems: Current Active Problems Problem Status Diagnosed Cholecystitis Acute Condition: FAIR
[2017-02-02] MEDS ORDERED: Morphine 4 mg/ml ISec IVP STA (07:28)
--- NOTE | 2017-02-02 08:25 | US ---
HISTORY: RUQ tenderness r/o gallbladder disease COMPARISON: None. TECHNIQUE: Sonographic evaluation of the abdomen. FINDINGS: LIVER: Measures 17 cm. -the size is top normal Normal echogenicity of the liver parenchyma. No mass. No intrahepatic bile duct dilatation. GALLBLADDER: The gallbladder is moderately distended with stones gallbladder sludge suggested. No gallbladder wall thickening or pericholecystic fluid suggested. No technologist reported sonographic positive Gil's sign. COMMON BILE DUCT: Measures 6.5 mm. No stones. No dilatation. PANCREAS: Unremarkable as visualized. No mass. No ductal dilatation. RIGHT KIDNEY: Measures 9.9 x 4.1 x 4.1cm. Normal echogenicity. No calculus, mass, or hydronephrosis. LEFT KIDNEY: Measures 9.7 x 4.9 x 4.2cm. Normal echogenicity. No calculus, mass, or hydronephrosis. SPLEEN: Normal in size and contour. No mass. AORTA: No aneurysmal dilatation. IVC: Unremarkable. OTHER FINDINGS: None. IMPRESSION: Multiple gallstones with gallbladder sludge. No ancillary findings to suggest superimposed acute cholecystitis
[2017-02-02 08:35] LABS: VENOUS BLOOD GAS BASE EXCESS -0.4 mmol/L (0.0-2.0); VENOUS BLOOD PH 7.38 (7.32-7.43)
--- NOTE | 2017-02-02 09:00 | CARD ---
APPROVED REPORT EKG Measurement Heart [id number] MS [id number] <Conclusion> Normal sinus rhythm Normal ECG
[2017-02-02] MEDS ORDERED: Iohexol 240 (50 ml) ONE ×2 (09:37→20:22)
--- NOTE | 2017-02-02 12:18 | CP.PCM.CON ---
History of Present Illness - History of Present Illness History of Present Illness: SURGERY CONSULT NOTE FOR DR. PALMER 71F [place] [facility] with diffused abdominal pain that began last night. Patient states she was watching TV at the time it happened and denies trauma. Most of the pain in viji-umbilical but radiates to all four quadrants. She states she was feeling nauseous and admits to dry heaves. She denies vomiting however. She states the last time she ate was last night before the pain started. Patient admits to a diarrheal episode without blood. Denies fevers and chills. PMH: CAD w stents, DM, Anemia, HTN, Thalassemia PSH: cardiac stents Social: Denies tobacco, alcohol and illicit drugs Allergies: NKDA Past Patient History - Infectious Disease Hx of Infectious Diseases: None - Past Social History Smoking Status: Never Smoked - CARDIAC Hx Hypertension: Yes - ENDOCRINE/METABOLIC Hx Diabetes Mellitus Type 1: Yes - HEMATOLOGICAL/ONCOLOGICAL Hx Anemia: Yes - PSYCHIATRIC Hx Substance Use: No - SURGICAL HISTORY Hx Cardiac Catheterization: Yes (2 stents) - ANESTHESIA Hx Anesthesia: Yes Hx Anesthesia Reactions: No Hx Malignant Hyperthermia: No Meds Allergies/Adverse Reactions: Allergies Allergy/AdvReac Type Severity Reaction Status Date / Time No Known Allergies Allergy Verified 02/02/17 05:37 - Medications Medications: Current Medications Sodium Chloride (Sodium Chloride 0.9%) 1,000 mls @ 100 mls/hr IV .Q10H STA Stop: 02/02/17 15:39 Last Admin: 02/02/17 06:20 Dose: 100 mls/hr Physical Exam - Constitutional Appears: Non-toxic, No Acute Distress - Head Exam Head Exam: ATRAUMATIC - Eye Exam Eye Exam: EOMI, PERRL - ENT Exam ENT Exam: Mucous Membranes Moist - Respiratory Exam Respiratory Exam: Clear to Auscultation Bilateral, NORMAL BREATHING PATTERN - Cardiovascular Exam Cardiovascular Exam: REGULAR RHYTHM, +S1, +S2 - GI/Abdominal Exam GI & Abdominal Exam: Soft, Tenderness (diffused abdominal pain, no surgical scars.). absent: Distended, Firm, Guarding, Rebound, Rigid - Extremities Exam Extremities exam: Negative for: tenderness - Neurological Exam Neurological exam: Alert, Oriented x3 - Psychiatric Exam Psychiatric exam: Normal Affect, Normal Mood - Skin Skin Exam: Dry, Intact, Normal Color, Warm Results - Vital Signs Recent Vital Signs: Last Vital Signs Temp 98.5 F 02/02/17 11:35 Pulse 92 H 02/02/17 11:35 Resp 18 02/02/17 11:35 BP 183/84 H 02/02/17 11:35 Pulse Ox 99 02/02/17 11:35 - Labs Result Diagrams: 02/03/17 06:45 02/03/17 06:45 Labs: Laboratory Results - last 24 hr 02/02/17 08:30 pO2 196 H VBG pH 7.38 VBG pCO2 42.0 VBG HCO3 24.8 VBG Total CO2 26.1 VBG O2 Sat (Calc) 99.2 H VBG Base Excess -0.4 L VBG Potassium 4.4 Sodium 135.0 Chloride 104.0 Glucose 278 H Lactate 1.6 FiO2 21.0 Venous Blood Potassium 4.4 Assessment & Plan - Assessment and Plan (Free Text) Assessment: 71F with abdominal pain likely 2/2 cholelithiasis/cholecystitis CT: Cholelitiasis, US: Distended Gallbladder with stones and sludge, no GB thickening/pericholecystic fluid HIDA: No visualization of the Gallbladder, cholecystitis Plan: - NPO, IVF, Abx - Pain control, anti-emetics, anti-pyretics - ID consulted- sepsis - HIDA positive - Patient prepared for OR - OR today 02/02 - Further recs discuss with Dr. Himanshu Chang, PGY1
[2017-02-02] MEDS ORDERED: Dextrose 5%/0.45% NS 1,000 ML IV SCH (13:00)
[2017-02-02 13:06] LABS: CHOLESTEROL 110 mg/dL (130-200)
[2017-02-02] MEDS ORDERED: Morphine 4 mg/ml ISec IV STA (13:48)
--- NOTE | 2017-02-02 13:54 | HP ---
HISTORY OF PRESENT ILLNESS: The patient is seen in Emergency Room in bed 6. The patient presented w ith less than 24 hours complaint of abdominal pain in the lower abdominal periumbilical upper quadran t of abdomen area. The patient denies one episode of diarrhea. The patient denies any hemoptysis, h ematemesis, melena. The patient had episodes of nausea and vomiting. REVIEW OF SYSTEMS: A 13-system review was done. Pertinent positive and negative dictated above. CODE STATUS: Full code. LIVING WILL AND ADVANCED DIRECTIVE: None. ALLERGIES: None. HEIGHT: 5 feet 3 inches. WEIGHT: 148. BODY MASS INDEX: 26. SOCIAL HISTORY: Denies smoking. Denies alcohol. Denies substance abuse. MENSTRUAL HISTORY: Postmenopausal. FAMILY HISTORY: Positive for diabetes, hypertension. PAST MEDICAL AND SURGICAL HISTORY: History of thalassemia, history of anemia, history of multiple pa cked red blood cell transfusion, history of multiple packed red blood cell transfusion, history of co ronary artery disease, history of angina, history of coronary angioplasty and stent placement, histor y of symptomatic anemia, history of hypertension, history of dyslipidemia, history of diabetic gastro paresis, history of anxiety disorder, history of questionable urinary ____, history of recurrent urin sy[place] tract colonization, history of overactive bladder with urinary incontinence, urgency and frequenc y; history of hypertension, history of diabetes, history of anemia, history of hypovitaminosis D, his tory of pyuria, history of osteopenia, history of normal stress in 2014, history of chronic gastritis , history of calcified mitral valve, history of mild LVH. The patient's past medical history is also significant for history of coronary artery disease with coronary angioplasty of obtuse marginal 1. The patient's past medical history is significant for single vessel coronary artery disease with 80% stenosis of the mid obtuse marginal 1, history of unstable angina, history of acute coronary syndrome , history of thalassemia. Past medical history significant for thalassemia intermedia, history of mi crocytic anemia, history of obstructive jaundice, history of duodenitis, gastritis; history of ERCP d one in 2007, history of narrowing of the proximal common bile duct, history of renal cyst, history of dilated common bile duct about 7.5 mm, history of fatty liver, history of degenerative joint disease of the cervical spine, history of tubal ligation, history of nonvisualized left ovary, history of du odenitis. PHYSICAL EXAMINATION: GENERAL: The patient seen in Emergency Room bed 6. The patient was also seen in the HIDA scan area. VITAL SIGNS: T-max 98.7, heart rate 76-____. Blood pressure 173/67, 168/90, 183/84. Respiration 18 , O2 sat 99% to 100%. HEAD: Normocephalic, atraumatic. HEENT: Shows pale conjunctivae, dry oral mucosa. NECK: No neck rigidity. CHEST: Kyphosis. LUNGS: Shows no rales, crackles, or wheezing. CARDIOVASCULAR: Shows S1, S2, regular rhythm. ABDOMEN: Soft. Positive epigastric, positive right upper quadrant tenderness. Questionable rebound tenderness. Positive periumbilical tenderness. No costovertebral angle tenderness. GENITALIA: Female. RECTAL: Deferred. EXTREMITIES: Shows no pitting edema, no calf tenderness, no Homans' sign. VASCULAR: Palpable pulses. MUSCULOSKELETAL: Shows a body mass index of 26. NEUROLOGIC: Cranial nerves II-XII intact. Gait examination not tested. DIAGNOSTICS: WBC 13.1, hemoglobin and hematocrit 9.8 and 29.2, platelets 338. PT, PTT 11.7 and 28.0 . Lactate was 1.6. Chemistries significant for sodium 135, potassium 4.3, chloride 98, CO2 of 25, a nion gap 16, BUN 13, creatinine 1.1, GFR greater than 59. Glucose 258, bilirubin 1.4. CPK 24. Trop onin negative. Amylase and lipase negative. Urine pH 7.5, specific gravity 1.225, protein 30, urine glucose 500, trace intact blood, moderate leukocyte esterase, bacteria small, yeast present. CT of the abdomen and pelvis and ultrasound of the abdomen was done in the Emergency Room, results re viewed. EKG done in the Emergency Room shows sinus rhythm, no ST elevation noted. EKG shows normal sinus rhythm. The patient was seen in the Emergency Room by the ER physician. [facility] and [facility]. The ER physician contacted Dr. Downs, surgeon on-call. He advised the patient to undergo HIDA scan. TREATMENT IN THE EMERGENCY ROOM: The patient was seen in the Emergency Room. The patient was given morphine 2 mg and 5 mg. The patient was given Protonix. The patient was given ____. IMPRESSION AND PLAN: 1. Abdominal pain involving upper abdomen, right upper quadrant. 2. Possible acute cholecystitis with multiple cholelithiasis and distended gallbladder. 3. Fatty pancreatic atrophy. 4. Fecal stasis and constipation. 5. 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 6. Gallbladder sludge with distended gallbladder and cholelithiasis. 7. Hypertension. 8. Leukocytosis. 9. Microcytic anemia and thalassemia intermedia. 10. Type 2 diabetes mellitus. 11. Mild hyperbilirubinemia. 12. History of hypertension, diabetes, dyslipidemia and coronary artery disease. 13. Proteinuria, glycosuria, microscopic hematuria, pyuria, funguria. 14. History of coronary artery disease, coronary angioplasty. 15. Anemia. PLAN: At this time, patient will be admitted to [facility]. The patient has been ordere d serial labs. Blood and urine cultures ordered. Consultation with gastroenterology, surgery alsydney y requested The patient is on D5 half normal 80 mL an hour, Flagyl 500 IV q.8. Humalog medium dose sliding scale coverage q.6. The patient is started on Nitro paste 1 inch q.6 hours, Dilaudid 0.5 mg IV q.4 hours p.r.n. for pain is ordered. The patient is started on Protonix 40 IV q.12, Reglan 5 mg IV q.6. The patient is started on Zofran 4 IV q.4, Zosyn 3.375 grams IV q.6 hours. The patient's HIDA scan was reviewed. Preliminary report says nonvisualized gallbladder. We are dalila ting for the delayed imaging. In addition, patient will also be consulted with cardiology for possib le preop clearance if patient requires to undergo surgical intervention. The patient's condition, di agnosis, need for hospitalization, need for further management, need for further diagnostic therapeut ic intervention discussed and explained to the patient at length. All questions and concerns answere d. The patient was seen and examined in bed 6 in the Emergency Room. All details discussed and explaine d to the patient at length. All questions and concerns answered. Dictated and electronically signed, not read. Ayan Humphries MD cc: [id number] TT: 02/02/2017 13:54:19 sn
[2017-02-02] MEDS: metroNIDAZOLE IV 500 mg/100 ml 100 ML IVPB SCH (14:07)
[2017-02-02] MEDS: Nitroglycerin 2% Ointment Foilpak UD TOP SCH ×2 (14:08→19:00)
[2017-02-02] MEDS: Insulin Lispro (humaLOG) MEDIUM Coverage SC SCH ×2 (14:50→19:01)
--- NOTE | 2017-02-02 15:35 | NM ---
PROCEDURE: Nuclear Medicine Hepatobiliary Scan HISTORY: Surgery requests HIDA scan to r/o cholecystitis COMPARISON: None available. TECHNIQUE: 5.0 mCi of technetium 99m Mebrofenin was administered intravenously. Planar images of the abdomen were obtained at 5 min intervals to 60 mins. Delayed images were also obtained. FINDINGS: LIVER: Timely and homogenous uptake. COMMON BILE DUCT: identified at 15 mins. GALLBLADDER: Not visualized even on 4 hour delays SMALL BOWEL: Identified at 45 mins. IMPRESSION: Gallbladder not visualized consistent with cholecystitis
[2017-02-02] MEDS ORDERED: Influenza Vaccine 45 MCG/0.5 ml IM ONE (16:53)
[2017-02-02] MEDS ORDERED: Pneumococcal 23-Valent Vaccine IM ONE (16:53)
--- NOTE | 2017-02-02 17:21 | RAD ---
HISTORY: temp 103.1 COMPARISON: None TECHNIQUE: Chest PA and lateral FINDINGS: LUNGS: The lungs are clear. PLEURA: No significant pleural effusion identified. No pneumothorax apparent. CARDIOVASCULAR: Normal. OSSEOUS STRUCTURES: No significant abnormalities. VISUALIZED UPPER ABDOMEN: Normal. OTHER FINDINGS: None. IMPRESSION: No active pulmonary disease.
[2017-02-02] MEDS ORDERED: Piperacillin/Tazobact 3.375 gm 100 ML IVPB SCH (18:00)
[2017-02-02] MEDS ORDERED: Vancomycin 1gm in NS 250ml 250 ML IVPB STA (19:58)
[2017-02-02] MEDS ORDERED: Bupivacaine 0.5% Inj(30mL) ONE (20:22)
[2017-02-02] MEDS ORDERED: Midazolam 2 MG/2 ML VIAL ONE (20:50)
[2017-02-02] MEDS ORDERED: Etomidate 20 mg/10ml Inj IV ONE (20:54)
[2017-02-02] MEDS ORDERED: Rocuronium 10 mg/ml (5 ml) ONE (21:04)
[2017-02-02] MEDS ORDERED: Succinylcholine 200 mg/10 ml Inj IV ONE (21:04)
[2017-02-02] MEDS ORDERED: Esmolol 100 mg/10ml Inj IV ONE ×2 (21:16→21:18)
[2017-02-02] MEDS ORDERED: Neostigmine Methylsulfate 3mg/3ml Syringe IV ONE (22:28)
[2017-02-02] MEDS ORDERED: HYDROmorphone 0.5 mg/0.5 ml ISec IVP PRN (22:42)
[2017-02-02] MEDS ORDERED: Morphine 4 mg/ml ISec IVP PRN (22:43)
[2017-02-02] MEDS ORDERED: Lactated Ringer's 1,000 ML IV SCH ×2 (22:45)
--- NOTE | 2017-02-02 22:49 | PCM.SURG1 ---
Surgeon's Initial Post Op Note - Surgeon's Notes Surgeon: Dr. Downs Rerecording Mixer: Dr. Montejo PGY-2 Type of Anesthesia: General Endo Anesthesia Administered By: Dr. Sheehan Pre-Operative Diagnosis: Acute Cholecystitis Operative Findings: See operative report Post-Operative Diagnosis: Same Operation Performed: Laparosocpic Cholecystectomy with Intra-op cholangiogram Specimen/Specimens Removed: Gallbladder Estimated Blood Loss: EBL {In ML}: 10 Blood Products Given: N/A Drains Used: No Drains Post-Op Condition: Fair Date of Surgery/Procedure: 02/02/17 Time of Surgery/Procedure: 22:48
[2017-02-03] MEDS: metroNIDAZOLE IV 500 mg/100 ml 100 ML IVPB SCH ×2 (00:14→06:25)
[2017-02-03] MEDS: Nitroglycerin 2% Ointment Foilpak UD TOP SCH ×4 (00:49→20:00)
[2017-02-03] MEDS: Piperacillin/Tazobact 2.25gm 100 ML IVPB SCH ×2 (01:57→05:13)
[2017-02-03] MEDS: HYDROmorphone 0.5 mg/0.5 ml ISec IVP PRN ×2 (05:38→20:26)
[2017-02-03 07:09] LABS: ADD MANUAL DIFF? NO
[2017-02-03 07:15] LABS: BASO # 0.02 K/mm3 (0.0-2.0); BASO % 0.1 % (0.0-3.0); EOS % 0.1 % (1.5-5.0); GRAN # 17.51 (1.4-6.5); GRAN % 84.5 % (50.0-68.0); HEMATOCRIT 25.6 % (36.0-48.0); LYMPH # 2.1 (1.2-3.4); LYMPH % 10.3 % (22.0-35.0); MEAN CELL VOLUME 57.7 fL (80.0-105.0); MEAN CORPUSCULAR HEMOGLOBIN 18.9 pg (25.0-35.0); MEAN CORPUSCULAR HGB CONC 32.8 g/dl (31.0-37.0); PLATELET COUNT 248 10^3/uL (120.0-450.0); RED CELL DISTRIBUTION WIDTH 31.5 % (11.5-14.5); WHITE BLOOD COUNT 20.7 10^3/ul (4.5-11.0)
[2017-02-03 07:27] LABS: ALB/GLOB RATIO 0.9 (1.1-1.8); BILIRUBIN,DIRECT 0.6 mg/dL (0.0-0.4); BILIRUBIN,TOTAL 2.3 mg/dL (0.2-1.3); CALCIUM 7.9 mg/dL (8.4-10.5); MAGNESIUM 1.2 mg/dL (1.7-2.2); POTASSIUM 4.4 mmol/L (3.6-5.0); TOTAL PROTEIN 6.7 g/dL (5.8-8.3)
--- NOTE | 2017-02-03 07:38 | OP ---
PROCEDURE DATE: 02/02/2017 PREOPERATIVE DIAGNOSES: Acute cholecystitis, cholelithiasis. POSTOPERATIVE DIAGNOSES: Acute gangrenous cholecystitis and cholelithiasis. PROCEDURES PERFORMED: Laparoscopic cholecystectomy with intraoperative cholangiogram. SURGEON: Dr. Downs. TRAINING DEVELOPMENT SPECIALIST: Dr. Montejo. ANESTHESIOLOGIST: Dr. Sheehan. ANESTHESIA: General endotracheal anesthesia. ESTIMATED BLOOD LOSS: Minimal. SPECIMEN: Gallbladder with gallstones. INDICATION: The patient is a 71-year-old female who has a history of diabetes who came in to the [facility] with complaints of epigastric pain and nausea. The patient also was noted to start having feve rs in the Emergency Room which persisted till this evening. The patient was started on IV antibiotic s and IV hydration and, after a HIDA scan revealed presence of an obstructed cystic duct, the patient was taken to the operating room for laparoscopic cholecystectomy. DESCRIPTION OF PROCEDURE: First, a timeout procedure took place and everybody in the room agreed as to the patient's identity, diagnosis and procedure to be performed. The patient was placed in the operating room and connected to EKG, blood pressure and pulse oximeter monitors. The patient then underwent general endotracheal anesthesia, was prepped and draped in usua l sterile fashion. First, using 2 towel clips, the anterior abdominal wall was elevated and a Veress needle was inserted through a small incision superior to the umbilicus. Once pneumoperitoneum was obtained, a 12 mm tro car was placed through that incision and careful evaluation of abdominal cavity revealed the presence of a distended gallbladder with edema and omentum covering the top of the gallbladder which was also edematous showing presence of acute cholecystitis. I then proceeded with placing a second 5 mm troc ar in the subxiphoid position and proceeded with careful dissection of the omentum off the gallbladde r wall. Once the omentum was detached, ____ gallbladder was carefully elevated and carefully dissect ed down towards the infundibulum. The infundibulum was exposed and the peritoneum was stripped from that portion of the gallbladder exposing the cystic duct behind it. Once the cystic duct was identif ied, it appeared to be fairly short and swollen, and dissection was done in order to separate it from the cystic artery directly behind it. Once this was done, the cystic duct was clipped proximally an d a small incision was made on the side of it and a cholangiocatheter was inserted into that incision . Under direct visualization with fluoroscopy, the cholangiogram was obtained and that revealed prom pt flow of dye into the entire biliary tree without any obstruction. There was also full visualizati on of the entire biliary tree all the way up to hepatic radicles. The dye emptied promptly into the duodenum. Once this was done, the cholangiocatheter was removed. The cystic duct was clipped distal ly and transected. The cystic artery was also clipped and transected. The gallbladder was then care fully taken off its liver bed revealing presence of necrotic patches on the posterior wall of the gal lbladder. Once completely detached, it was placed in the EndoCatch bag and removed through the periu mbilical incision. A small perforation of the gallbladder revealed the presence of multiple choleste rol stones which were suctioned out. Once the gallbladder was removed through the umbilical cavity, the right upper quadrant was copiously irrigated. All the irrigant fluid was suctioned out and a car eful evaluation of the liver bed revealed presence of good hemostasis. The irrigation fluid was suct ioned out completely and the pneumoperitoneum was released. Trocars, which were checked before from inside for bleeding and appeared to be hemostatic, were removed. The wounds were closed using 0 Vicr yl for the fascia, 3-0 Vicryl for subcutaneous tissue and 4-0 Monocryl for skin. A sterile Dermabond dressing was applied to the wound. The patient tolerated the procedure well and there were no compl ications. The patient was awakened and transferred to the recovery room for further observation. Alf Downs MD cc: [phone] TT: 02/03/2017 07:38:11 henrry
[2017-02-03] MEDS: Insulin Lispro (humaLOG) MEDIUM Coverage SC SCH ×4 (08:41→21:46)
[2017-02-03] MEDS: Magnesium Sulfate 2 GM in Sodium Chloride 0.9% 100 ML IVPB SCH ×2 (08:42→11:52)
--- NOTE | 2017-02-03 08:48 | CP.PCM.PN ---
Subjective - Date & Time of Evaluation Date of Evaluation: 02/03/17 Time of Evaluation: 07:00 - Subjective Subjective: SURGERY PROGRESS NOTE FOR DR. PALMER 71M seen and examined at bedside. Patient states pain has improved and controlled. Denied nausea, vomiting, tolerated small amount of clear liquid diet overnight. Patient had a temp of 101 this morning and was treated. Objective - Vital Signs/Intake and Output Vital Signs (last 24 hours): Temp Pulse Resp BP Pulse Ox 101 F H 111 H 18 147/61 99 02/03/17 05:55 02/03/17 01:28 02/03/17 01:28 02/03/17 01:28 02/03/17 01:28 Intake and Output: 02/03/17 02/03/17 06:59 18:59 Intake Total 1764 Balance 1764 - Medications Medications: Current Medications Acetaminophen (Tylenol 325mg Tab) 650 mg PO Q6H PRN PRN Reason: Temperature Last Admin: 02/03/17 05:55 Dose: 650 mg Hydromorphone HCl (Dilaudid) 0.5 mg IVP Q4H PRN PRN Reason: Pain, moderate (4-7) Last Admin: 02/03/17 05:38 Dose: 0.5 mg Metronidazole (Flagyl) 100 mls @ 100 mls/hr IVPB Q8 GEMINI PRN Reason: Protocol Last Admin: 02/03/17 06:25 Dose: 100 mls/hr Piperacillin Sod/Tazobactam Sod (Zosyn 2.25 Gm In 0.9% 100 Ml) 100 mls @ 200 mls/hr IVPB Q6 GEMINI PRN Reason: Protocol Stop: 02/09/17 18:01 Last Admin: 02/03/17 05:13 Dose: 200 mls/hr Lactated Ringer's (Lactated Ringer's) 1,000 mls @ 125 mls/hr IV .Q8H GEMINI Last Admin: 02/03/17 00:47 Dose: 125 mls/hr Magnesium Sulfate 2 gm/ Sodium (Chloride) 104 mls @ 102 mls/hr IVPB Q2H GEMINI Stop: 02/03/17 11:02 Last Admin: 02/03/17 08:42 Dose: 102 mls/hr Insulin Human Lispro (Humalog Med) 0 units SC ACHS GEMINI Last Admin: 02/03/17 08:41 Dose: 5 units Metoclopramide HCl (Reglan) 5 mg IVP Q6H GEMINI Last Admin: 02/03/17 06:25 Dose: 5 mg Nitroglycerin (Nitro-Bid 2% Oint) 1 ea TOP Q6H [facility] Last Admin: 02/03/17 06:26 Dose: 1 ea Ondansetron HCl (Zofran Inj) 4 mg IVP Q4H PRN PRN Reason: Nausea/Vomiting Pantoprazole Sodium (Protonix Inj) 40 mg IVP Q12 [facility] Last Admin: 02/02/17 14:05 Dose: 40 mg - Labs Labs: 02/03/17 06:45 02/03/17 06:45 PT 11.7 Seconds (9.9-11.8) 02/02/17 06:00 INR 1.08 (0.93-1.08) 02/02/17 06:00 APTT 28.0 Seconds (23.7-30.8) 02/02/17 06:00 - Constitutional Appears: Non-toxic, No Acute Distress - Head Exam Head Exam: ATRAUMATIC - Respiratory Exam Respiratory Exam: Clear to Ausculation Bilateral, NORMAL BREATHING PATTERN - Cardiovascular Exam Cardiovascular Exam: REGULAR RHYTHM, +S1, +S2 - GI/Abdominal Exam GI & Abdominal Exam: Soft, Tenderness (appropriate tenderness around incision site). absent: Distended, Firm, Guarding, Rigid, Rebound Additional comments: incisions clean dry intact - Neurological Exam Neurological Exam: Alert, Awake - Skin Skin Exam: Dry, Intact, Normal Color, Warm Assessment and Plan - Assessment and Plan (Free Text) Assessment: 71F s/p laparoscopic cholecystectomy POD1 Plan: - tolerated liquid diet, advanced to regular diet for lunch - monitor vitals - continue pain control, Abx - encourage ambulation/IS/Stockings Further recs discuss with Dr. Himanshu Chang, PGY1
[2017-02-03] MEDS: Meropenem 1g/NS 100mL IVPB 100 ML IVPB SCH ×2 (09:53→21:05)
--- NOTE | 2017-02-03 10:57 | CON ---
DATE: 02/03/2017 HISTORY: The patient is a 71-year-old woman who presents with abdominal pain. She was found to have cholecystitis. The patient underwent emergency cholecystectomy yesterday. The patient is resting comfortably. The patient's past medical history includes hypertension, diabetes mellitus, and has had multivessel PTCA in the past. Her last stress in 2014 was unremarkable. Currently, the patient is sedated with pain medications. REVIEW OF SYSTEMS: Unavailable. On physical exam, blood pressure 131/60, the heart rate is approximately 100, temperature is 101. NECK: Negative JVD. LUNGS: Without rales. HEART: Reveals S1, S2. EXTREMITIES: Without edema. EKG shows no acute changes. LABORATORIES: Hemoglobin is 8.4. Chemistries: Glucose is 241. IMPRESSION: 1. Status post cholecystectomy. 2. Coronary artery disease. 3. History of multivessel percutaneous transluminal coronary angioplasty. 4. Diabetes mellitus. 5. Hypertension. Given these findings, the patient is hemodynamically stable. Her fever will need to be treated with antibiotics. Meliton Batista MD cc: [id number] TT: 02/03/2017 10:56:13 Confirmation # [id number] Dictation # [id number] lisa
[2017-02-03] MEDS ORDERED: Lactated Ringer's 1,000 ML IV SCH (11:07)
[2017-02-03] MEDS ORDERED: Sodium Chloride 0.9% 1,000 ML IV SCH ×2 (11:15→19:00)
[2017-02-03] MEDS ORDERED: Magnesium Sulfate 2 GM in Sodium Chloride 0.9% 100 ML IVPB SCH (11:15)
--- NOTE | 2017-02-03 11:29 | RAD ---
PROCEDURE: Intraoperative cholangiogram HISTORY: R/O OBSTRUCTION COMPARISON: None TECHNIQUE: Standard protocol for this study/examination. FINDINGS: Submitted images from the current procedure: 5.0 IMPRESSION: Less than 1 hr fluoroscopic time utilized during performance of the procedure.
--- NOTE | 2017-02-03 12:45 | PN ---
DATE: 02/03/2017 The patient is seen today in room 574, bed 2. The patient is lying in the bed. The patient is comfortable, awake today. The patient was visited last night in postanesthesia care unit after cholecystectomy, but patient under the effects of anesthesia. VITAL SIGNS: T-max is 103.1, down to 101.9, to 99.9, to 101 degrees Fahrenheit. Heart rate is 110, 99. Respirations 18, blood pressure has come down to 131/59, and 147/61. Respirations 20, O2 sat is 100%. HEAD EXAMINATION: Normocephalic, atraumatic. HENT EXAMINATION: Shows dry oral mucosa. Pale conjunctiva, anicteric sclerae. No oropharyngeal lesion. CHEST EXAMINATION: Kyphosis. LUNG EXAMINATION: Shows occasional rhonchi. CARDIOVASCULAR EXAMINATION: Shows S1, S2, regular rhythm. ABDOMEN: Slightly protuberant, positive bowel sounds. Positive healed laparoscopic surgical scar of cholecystectomy noted. Positive bowel sounds. GENITALIA: Female. RECTAL EXAMINATION: Deferred. EXTREMITIES: Shows positive SURENDRA stockings. No pitting edema, no calf tenderness, no Homans' sign. NEUROLOGICALLY: The patient is alert, awake, oriented x 3. Cranial nerves II- XII limited, but intact. Gait examination not tested. VASCULAR EXAMINATION: Palpable pulses. MUSCULOSKELETAL EXAMINATION: Shows a body mass index of 26. DIAGNOSTICS 02/03: WBC count has gone up to 21,000 from 13,000, hemoglobin has dropped to 8.4, hematocrit 25.6, platelets 248, granulocytes 84.5. Sodium 139, potassium is 4.4, chloride 101, CO2 of 22, anion gap 12, BUN 19, creatinine 0.9 , creatinine 1.1, GFR 59. Fingerstick blood sugar 226, 251, 241, 319, 235, 286. Calcium 7.9, magnesium 1.2, total bili 2.2, direct bili 0.6. AST 64. ___ __, urine cultures 10-50, multiple species, contamination. The patient's chest x-ray yesterday was negative. IMPRESSION AND PLAN: 1. Acute cholecystitis with cholelithiasis and gallbladder wall thickening. 2. Acute gangrenous cholecystitis and cholelithiasis. 3. Status post laparoscopic cholecystectomy and intraoperative cholangiogram. 4. High-grade fever. 5. Questionable sepsis versus systemic inflammatory response syndrome. 6. Tachycardia. 7. Hypertension. 8. Leukocytosis with granulocytosis. 9. Microcytic anemia and decreasing hemoglobin and hematocrit. 10. Mild hyponatremia. 12. Noninsulin requiring type 2 diabetes mellitus with hyperglycemia. 13. Hypomagnesemia. 14. Hyperbilirubinemia. 15. Questionable mild transaminitis. 16. Questionable urinary tract infection with proteinuria, glycosuria, microscopic hematuria, pyuria, funguria, with multiple urinary tract infections...multiple species urinary tract infection. 17. O-positive blood type. 18. Acute cholecystitis with nonvisualization of gallbladder on HIDA scan, and multiple cholelithiasis and gallbladder sludge with...with...with just moderately distended gallbladder. 19. Tachycardia. 20. History of coronary artery disease, history of angioplasty of obtuse marginal-1 21. Status post laparoscopic cholecystectomy and intraoperative cholangiogram, postoperative day #1. 1. Abdominal pain involving upper abdomen, right upper quadrant. 2. Possible acute cholecystitis with multiple cholelithiasis and distended gallbladder. 3. Fatty pancreatic atrophy. 4. Fecal stasis and constipation. 5. 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 6. Gallbladder sludge with distended gallbladder and cholelithiasis. 7. Hypertension. 8. Leukocytosis. 9. Microcytic anemia and thalassemia intermedia. 10. Type 2 diabetes mellitus. 11. Mild hyperbilirubinemia. 12. History of hypertension, diabetes, dyslipidemia and coronary artery disease. 13. Proteinuria, glycosuria, microscopic hematuria, pyuria, funguria. 14. History of coronary artery disease, coronary angioplasty. 15. Anemia. PLAN: At this time, the patient... At this time, the patient...the patient has to be continued on...The patient is to be given magnesium sulf...IV magnesium. The patient has to be given IV magnesium...magnesium sulfate, 2 riders. The patient's IV fluid will be changed to 0.9 normal saline. The patient will be ordered change of IV fluid to 0.9 normal saline at 100 mL/ hour. The patient is on Act...The patient is ordered Dilaudid 0.5 IV q. 4 p.r.n., heparin 5000 subQ q. 12, Humalog medium dose sliding scale coverage, Lopressor 25 mg twice a day, Meropenem 1 g IV q. 12, nitro paste 1 inch q. 6, Protonix 40 IV q. 12, Reglan 5 mg IV q. 6, IV fluids 0.9 normal saline at 100 mL an hour, Tylenol 650 q. 6 p.r.n. The patient received a gram of vancomycin yesterday, Zofran 4 mg IV q. 4 p.r.n., oxygen nasal cannula. The patient is started on heart-healthy diet from lunch today. The patient is on incentive spirometry out of bed, physical therapy, occupational therapy. The patient has been ordered transfusion of 1 unit of PRBC. The patient has been ordered referral for...referral for TCU, director of social services. The patient has been ordered magnesium sulfate riders x 2. The patient has been ordered IV fluids. The patient tolerated liquid diet overnight, according to the surgical forceps fabricator. The patient's blood cultures will be checked when available. The patient has been ordered physical therapy, occupational therapy, out of bed. TCU were ordered. CURRENT CONSULTATIONS: Surgery, cardiology, gastroenterology, infectious disease. Repeat serial labs ordered. At present, patient's further management will be dependent upon the patient's clinical condition, hemodynamic status, and as per the patient's response to therapeutic intervention, as per the patient's diagnostic test results, and as per recommendation by all the physicians involved in the care of the patient. Dictated and electronically signed, not read. Ayan Humphries MD cc: [id number] TT: 02/03/2017 12:11:53 Confirmation # [id number] Dictation # [id number] TOM
--- NOTE | 2017-02-03 15:35 | CP.PCM.CON ---
History of Present Illness - History of Present Illness History of Present Illness: 71 year old female with PMH of CAD S/P PCI with stents placed, DM, chronic anemia, HTN, thalassemia came in to [facility] because of worsening diffuse abdominal pain associated with nausea but no vomiting. At the time she did not notice fever but was noted to have fever in the ED. In the ED, work up revealed acute cholecystitis and she underwent laparoscopic cholecystectomy yesterday. She is still having fevers post-op. Infectious Diseases consult is requested to further evaluate and manage. The patient still feels weak and groggy from the surgery, but denies headache or dizziness, no chest pain, no sore throat, no dysuria, no diarrhea, no joint or muscle aches. She is still having mild abdominal pain but much improved compared to her initial presentation. Review of Systems - Review of Systems All systems: reviewed and no additional remarkable complaints except (as per HPI ) Past Patient History - Infectious Disease Hx of Infectious Diseases: None - Past Medical History & Family History Past Medical History?: Yes Past Family History: Reviewed and not pertinent - Past Social History Smoking Status: Never Smoked Alcohol: None Drugs: Denies Home Situation {Lives}: With Family - CARDIAC Hx Hypertension: Yes - ENDOCRINE/METABOLIC Hx Diabetes Mellitus Type 1: Yes - HEMATOLOGICAL/ONCOLOGICAL Hx Anemia: Yes - MUSCULOSKELETAL/RHEUMATOLOGICAL Hx Falls: No - GASTROINTESTINAL Other/Comment: ercp 2008, duodenitis, obstructive jaundice, dilated cbd, fatty liver, diabetic gastrophoresis, chronic gastritis - GENITOURINARY/GYNECOLOGICAL Hx Genitourinary Disorders: (pt denies overactive bladder) Hx Urinary Tract Infection: Yes Other/Comment: renal cyst - PSYCHIATRIC Hx Substance Use: No - SURGICAL HISTORY Hx Cardiac Catheterization: Yes (2 stents) - ANESTHESIA Hx Anesthesia: Yes Hx Anesthesia Reactions: No Hx Malignant Hyperthermia: No Meds Allergies/Adverse Reactions: Allergies Allergy/AdvReac Type Severity Reaction Status Date / Time No Known Allergies Allergy Verified 02/02/17 05:37 - Medications Medications: Current Medications Acetaminophen (Tylenol 325mg Tab) 650 mg PO Q6H PRN PRN Reason: Temperature Last Admin: 02/02/17 16:40 Dose: 650 mg Hydromorphone HCl (Dilaudid) 0.5 mg IVP Q4H PRN PRN Reason: Pain, moderate (4-7) Metronidazole (Flagyl) 100 mls @ 100 mls/hr IVPB Q8 GEMINI PRN Reason: Protocol Last Admin: 02/02/17 14:07 Dose: 100 mls/hr Piperacillin Sod/Tazobactam Sod (Zosyn 3.375 In Ns 100ml) 100 mls @ 200 mls/hr IVPB Q6 GEMINI PRN Reason: Protocol Stop: 02/05/17 12:29 Last Admin: 02/02/17 19:00 Dose: 200 mls/hr Dextrose/Sodium Chloride (Dextrose 5%/0.45% Ns 1000 Ml) 1,000 mls @ 80 mls/hr IV .[id number] [facility] Last Admin: 02/02/17 14:03 Dose: 80 mls/hr Insulin Human Lispro (Humalog Med) 0 units SC Q6H [facility] Last Admin: 02/02/17 19:01 Dose: 2 units Metoclopramide HCl (Reglan) 5 mg IVP Q6H [facility] Last Admin: 02/02/17 19:01 Dose: 5 mg Nitroglycerin (Nitro-Bid 2% Oint) 1 ea TOP Q6H [facility] Last Admin: 02/02/17 19:00 Dose: 1 ea Ondansetron HCl (Zofran Inj) 4 mg IVP Q4H PRN PRN Reason: Nausea/Vomiting Pantoprazole Sodium (Protonix Inj) 40 mg IVP Q12 [facility] Last Admin: 02/02/17 14:05 Dose: 40 mg Physical Exam - Constitutional Appears: Non-toxic, No Acute Distress - Head Exam Head Exam: NORMAL INSPECTION - ENT Exam ENT Exam: Mucous Membranes Moist - Neck Exam Neck exam: Negative for: Lymphadenopathy, Meningismus - Respiratory Exam Respiratory Exam: Decreased Breath Sounds - Cardiovascular Exam Cardiovascular Exam: +S1, +S2 - GI/Abdominal Exam GI & Abdominal Exam: Soft. absent: Tenderness Results - Vital Signs Recent Vital Signs: Last Vital Signs Temp 101.2 F H 02/02/17 19:53 Pulse 113 H 02/02/17 19:53 Resp 18 02/02/17 19:53 BP 115/51 L 02/02/17 19:53 Pulse Ox 94 L 02/02/17 19:53 - Labs Result Diagrams: 02/03/17 06:45 02/03/17 06:45 Labs: Laboratory Results - last 24 hr 02/02/17 02/02/1702/02/17 14:18 16:34 18:00 POC Glucose (mg/dL) 294 H 286 H Blood Type O POSITIVE Antibody Screen Negative BBK History Checked Patient has bt 02/02/17 18:46 POC Glucose (mg/dL) 235 H Blood Type Antibody Screen BBK History Checked Assessment & Plan - Assessment and Plan (Free Text) Plan: Assessment Severe sepsis with acute renal failure (estimated GFR 49) secondary to acute cholecystitis S/P laparoscopic cholecystectomy POD #1, with post-operative fever CAD S/P PCI with stents placed DM chronic anemia HTN thalassemia Plan Started patient on Meropenem and gave a dose of IV Vancomycin pending blood cx, OR cultures Will monitor clinically
--- NOTE | 2017-02-03 15:41 | CON ---
DATE: 02/03/2017 Seen and examined at the bedside earlier today. REQUEST FOR CONSULT: Cholecystitis. HISTORY OF PRESENT ILLNESS: This is a 71-year-old female with a past medical history of coronary art hao disease with stent, anemia, diabetes mellitus and thalassemia. came to the Emergency Room with co mplaints of diffuse abdominal pain that began the night before. The patient states that the pain mos tly appears periumbilical and radiates to all 4 quadrants. Did have feelings of nausea and had dry h eaves. No reports of any known fever. The patient states that she did have a bowel movement 2 days ago. It was a little loose, but did not note any blood or bright red blood. The patient states the last time she was ____ the night before and the pain started. No reports of any unintentional weight loss, shortness of breath or chest pain. On admission, the patient went for multiple diagnostic filippo ts that were suspicious. The gallbladder had multiple gallstones and sludge with findings suggestive of acute cholecystitis. She underwent a HIDA scan in which showed gallbladder was not visualized. The patient went for laparoscopic cholecystectomy last night. She is postop day #1. Prior to surger y, she did receive blood transfusion of 2 units. The patient denies any current nausea, vomiting. S he is having postop pain, but is not in any distress. She tolerated the clear liquid diet. Denies p assing any flatus, belching or any bowel movements at this time. No acute distress. PAST MEDICAL HISTORY: Coronary artery disease with stents, thalassemia, hypertension, diabetes and a nemia. Her last endoscopy and colonoscopy were at least 5 years ago. No known history of peptic ulc er disease or colon polyp. PAST SURGICAL HISTORY: She had cardiac stents. FAMILY HISTORY: Noncontributory at this time. MEDICATIONS: Reviewed as per JAN. SOCIAL HISTORY: Denies tobacco, ETOH, or substance abuse. ALLERGIES: No known drug allergies. REVIEW OF SYSTEMS: Systems reviewed with positive findings, see HPI: ASSESSMENT: This is a 71-year-old female who came with severe diffuse abdominal pain. She was also found to have leukocytosis, status post radiological testing and HIDA scan reporting non-visualized g allbladder. The patient with acute cholecystitis, status post emergent laparoscopic cholecystectomy. The patient also with anemia. She does have history of chronic anemia. No complaints of overt gas trointestinal bleed. She was given 2 units prior to surgery. She did have elevated liver function t ests and hypomagnesemia. Other comorbidities of diabetes mellitus, thalassemia and hypertension. PLAN: Started on clears by surgery. Her diet was advanced to a heart healthy at lunch as per surger y. The patient is also on IV antibiotics, meropenem, as per ID. She is also on DVT prophylaxis, on heparin q. 12, getting Dilaudid for pain, is also on PPI q. 12 and on Reglan. Continue to monitor LF Ts, follow up surgical pathology. We will continue to monitor LFTs and H and H as per surgery, ID an d cardiology. Thank you for this consult and for allowing us to participate in your patient's care. We will make sabi frost recommendations based upon patient's clinical course. The patient was seen and case discussed with Dr. Chaves. Shelbi JEFFRIES cc: [id number] TT: 02/03/2017 15:41:00 Confirmation # [id number] Dictation # [id number] tn
[2017-02-04] MEDS: Nitroglycerin 2% Ointment Foilpak UD TOP SCH ×2 (00:35→06:25)
[2017-02-04] MEDS: HYDROmorphone 0.5 mg/0.5 ml ISec IVP PRN (02:09)
--- NOTE | 2017-02-04 06:52 | CON ---
DATE: 02/03/2017 This patient was seen and evaluated earlier today. This is an addendum to the GI consultation report dictated by Shelbi Hankins. The patient was admitted with acute onset of abdominal pain clinically and radiologically suggestive of acute cholecystitis. The patient had a laparoscopic cholecystectomy done. Continue the present t reatment. Doing well. Tolerating the liquid. Continue to follow up the LFTs. Continue the antibio tics. Thank you very much for allowing us to participate in the care of the patient. Tiarra Chaves MD cc: [id number] TT: 02/04/2017 06:52:00 Confirmation # [id number] Dictation # [id number] mn
[2017-02-04 07:18] LABS: HEMATOCRIT 32.3 % (36.0-48.0); MEAN CELL VOLUME 60.7 fL (80.0-105.0); MEAN CORPUSCULAR HEMOGLOBIN 20.7 pg (25.0-35.0); MEAN CORPUSCULAR HGB CONC 34.1 g/dl (31.0-37.0); PLATELET COUNT 227 10^3/uL (120.0-450.0); RED CELL DISTRIBUTION WIDTH 32.5 % (11.5-14.5); WHITE BLOOD COUNT 21.9 10^3/ul (4.5-11.0)
[2017-02-04 07:20] LABS: ADD MANUAL DIFF? YES
[2017-02-04 07:36] LABS: ALB/GLOB RATIO 0.9 (1.1-1.8); ALKALINE PHOSPHATASE 57 U/L (38-133); ALT/SGPT 45 U/L (7-56); AST/SGOT 64 U/L (15-39); BILIRUBIN,DIRECT 0.7 mg/dL (0.0-0.4); BLOOD UREA NITROGEN 17 mg/dL (7-21); CALCIUM 8.1 mg/dL (8.4-10.5); CARBON DIOXIDE 21 mmol/L (21-33); CHLORIDE 104 mmol/L (98-107); GFR AFRICAN-AMERICAN > 60; GLUCOSE,RANDOM 176 mg/dL (70-110); MAGNESIUM 2.6 mg/dL (1.7-2.2); POTASSIUM 4.1 mmol/L (3.6-5.0); SODIUM 137 mmol/L (132-148); TOTAL PROTEIN 7.6 g/dL (5.8-8.3)
[2017-02-04] MEDS: Insulin Lispro (humaLOG) MEDIUM Coverage SC SCH ×4 (08:22→23:07)
[2017-02-04 08:28] VITALS: RESP 20
[2017-02-04 10:22] LABS: ANISOCYTOSIS 1+; BAND 2 % (0-2); HYPOCHROMIA 3+; MICROCYTOSIS 3+; NEUTROPHIL 92 % (50.0-70.0); PLATELET ESTIMATE NORMAL (NORMAL); POIKILOCYTOSIS 1+
[2017-02-04 10:23] LABS: OVALOCYTES SLIGHT; TARGET CELLS 1+; TEAR DROP CELLS SLIGHT
[2017-02-04] MEDS: Meropenem 1g/NS 100mL IVPB 100 ML IVPB SCH ×2 (10:32→22:47)
--- NOTE | 2017-02-04 11:11 | PN ---
DATE: 02/04/2017 The patient is ambulating and eating without issues. PHYSICAL EXAMINATION: VITAL SIGNS: Blood pressure ranges from 145-178 systolic, the heart rate is in the 90s. NECK: Negative JVD. LUNGS: Without rales. HEART: Reveals S1, S2. EXTREMITIES: Without edema. LABORATORY: The white count is up to 21,000, hemoglobin is 11, BUN and creatinine are 17 and 1.0. Glucose is 176. IMPRESSION: 1. Status post cholecystectomy. 2. Coronary artery disease. 3. Hypertension. 4. Diabetes mellitus. 5. History of percutaneous transluminal coronary angioplasty and stent in the past. Given these findings, the patient is doing well from a cardiac perspective. We will continue to dameon tor her blood pressure while she is here. We will restart Bystolic when [facility] and Bystolic is not on formulary here. We will continue metoprolol while she is here. Meliton Batista MD cc: [id number] TT: 02/04/2017 11:10:30 Confirmation # [id number] Dictation # [id number] tn
--- NOTE | 2017-02-04 11:53 | PN ---
DATE: 02/04/2017 Seen and examined at the bedside earlier today. She is out of bed in the chair, walked around zia r. Denies any nausea, vomiting. Postop pain, but is comfortable. No acute overnight events reporte d. No fever or chills. So far, tolerating her heart healthy diet. No bowel movement yet. Did not pass any gas or flatus yet. VITAL SIGNS: Temperature is 98.3, blood pressure 178/82, pulse 95, respirations 20, 97% on room air. LABORATORIES: Today, WBC is 21.9, H and H is 11.0 and 32.3, platelets 227. Urine culture was negati ve and blood culture negative x 2. PHYSICAL EXAMINATION: HEENT: Sclerae anicteric. NECK: Supple. CARDIAC: S1, S2. LUNG SOUNDS: With decreased breath sounds, but good aeration. ABDOMEN: With bowel sounds. It is soft. Some tenderness to mid abdomen. Her laparoscopic sites ar e intact. No rebound or guarding. EXTREMITIES: Lower extremities, no edema. NEUROLOGIC: Awake, alert, and oriented. ASSESSMENT: Acute cholecystitis, status post laparoscopic cholecystectomy, postop day #2. The patie nt with leukocytosis, status post fever, urine and blood cultures are negative, anemia, no overt abran rointestinal bleed. She is status post 2 units of packed red blood cells. She does have history of chronic anemia, history of thalassemia, diabetes mellitus, elevated liver enzymes, history of coronar y artery disease, history of percutaneous transluminal coronary angioplasty and stent in the past. PLAN: The patient is on IV antibiotics, meropenem. Continue gastrointestinal prophylaxis, Protonix. Deep venous thrombosis prophylaxis, she has SCD boots and also has heparin q. 12 ordered. The bahman ent refused a.m. dose. Continue heart healthy diet. Gets Dilaudid for pain and Reglan, on Actigall. Monitor LFTs. May be multifactorial, medication induced, congestion. We will monitor closely. As per surgery, cardiology and ID. The patient was seen and case discussed with Dr. Chaves. Shelbi JEFFRIES cc: [id number] TT: 02/04/2017 11:53:28 Confirmation # [id number] Dictation # [id number] en
--- NOTE | 2017-02-04 12:04 | PN ---
DATE: 02/04/2017 The patient is seen in room 574, bed 2. The patient is out of bed to chair. The patient is complaining of poor appetite. The patient is also complaining of dry mouth. PHYSICAL EXAMINATION: VITAL SIGNS: T-max in the last 24 hours 101 degrees Fahrenheit, heart rate is high 90s. Blood pressure 178/82, 145/70, 151/78. Respirations 20, O2 sat 97%. Intake/output not documented correctly. The patient received 2 units of PRBC yesterday. HEAD: Normocephalic, atraumatic. HEENT: Shows pinkish, pale conjunctivae, anicteric sclerae, no oropharyngeal lesion. NECK: No neck rigidity. CHEST: Kyphosis. LUNGS: Shows no rales, crackles. Occasional rhonchi bilaterally. CARDIOVASCULAR: Shows S1, S2, regular rhythm. ABDOMEN: Soft. Positive bowel sounds, mild voluntary guarding. No rebound tenderness. No costovertebral angle tenderness. GENITALIA: Female. RECTAL: Deferred. EXTREMITIES: Shows no pitting edema, no calf tenderness, no Homans sign. Positive SURENDRA stockings. MUSCULOSKELETAL: Shows a body mass index of 26. NEUROLOGIC: Cranial nerves II-XII intact. Ambulation is independent. VASCULAR: Palpable pulses. DIAGNOSTICS: 02/04/2017: WBC 22,000, hemoglobin and hematocrit 11 and 32.3, platelets 227. Granulocytes 92%. Sodium 137, potassium 4.1, chloride 104, CO2 21, anion gap 16, BUN 17, creatinine 1.1, GFR greater than 60, glucose 176. Fingerstick blood sugar 186, 202, 226, 251. Calcium 8.1, magnesium 2.6 from 1.2. Total bilirubin has doubled since admission from 1.4 to 3.0. Direct bilirubin is still elevated at 0.7. AST is elevated at 64 from 24. Alkaline phosphatase is also increased from 12 to 54 to 45. IMPRESSION AND PLAN: 1. Acute gangrenous cholecystitis, secondary to cholelithiasis. 2. Status post laparoscopic cholecystectomy and intraoperative cholangiogram, postop day 2. 3. Hypertension. 4. Sepsis with high-grade fever, leukocytosis, granulocytosis, tachycardia. 5. Microcytic anemia, status post packed red blood cell transfusion x 2. 6. Leukocytosis with granulocytosis. 7. Hyponatremia. 8. Noninsulin requiring type 2 diabetes mellitus with hyperglycemia. 9. Hyperbilirubinemia. 10. Mild transaminitis. 11. Questionable anorexia. 12. Questionable urinary tract infection with multiple species and proteinuria , glycosuria, microscopic hematuria, pyuria and funguria. 13. Status post packed red blood cell transfusion x 2. 14. Status post laparoscopic cholecystectomy. 1. Acute cholecystitis with cholelithiasis and gallbladder wall thickening. 2. Acute gangrenous cholecystitis and cholelithiasis. 3. Status post laparoscopic cholecystectomy and intraoperative cholangiogram. 4. High-grade fever. 5. Questionable sepsis versus systemic inflammatory response syndrome. 6. Tachycardia. 7. Hypertension. 8. Leukocytosis with granulocytosis. 9. Microcytic anemia and decreasing hemoglobin and hematocrit. 10. Mild hyponatremia. 12. Noninsulin requiring type 2 diabetes mellitus with hyperglycemia. 13. Hypomagnesemia. 14. Hyperbilirubinemia. 15. Questionable mild transaminitis. 16. Questionable urinary tract infection with proteinuria, glycosuria, microscopic hematuria, pyuria, funguria, with multiple urinary tract infections...multiple species urinary tract infection. 17. O-positive blood type. 18. Acute cholecystitis with nonvisualization of gallbladder on HIDA scan, and multiple cholelithiasis and gallbladder sludge with...with...with just moderately distended gallbladder. 19. Tachycardia. 20. History of coronary artery disease, history of angioplasty of obtuse marginal-1 21. Status post laparoscopic cholecystectomy and intraoperative cholangiogram, postoperative day #1. 1. Abdominal pain involving upper abdomen, right upper quadrant. 2. Possible acute cholecystitis with multiple cholelithiasis and distended gallbladder. 3. Fatty pancreatic atrophy. 4. Fecal stasis and constipation. 5. 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 6. Gallbladder sludge with distended gallbladder and cholelithiasis. 7. Hypertension. 8. Leukocytosis. 9. Microcytic anemia and thalassemia intermedia. 10. Type 2 diabetes mellitus. 11. Mild hyperbilirubinemia. 12. History of hypertension, diabetes, dyslipidemia and coronary artery disease. 13. Proteinuria, glycosuria, microscopic hematuria, pyuria, funguria. 14. History of coronary artery disease, coronary angioplasty. 15. Anemia. PLAN: At this time, patient has been ordered serial labs. Blood cultures report no growth after 24 hours. CURRENT CONSULTATIONS: 1. Surgery. 2. Cardiology. 3. Gastroenterology. 4. Infectious disease. 5. Referred to TCU. CURRENT MEDICATIONS: 1. The patient is started on Actigall 300 mg twice a day. 2. The patient is on Dilaudid 0.5 mg IV q. 4 p.r.n. 3. Heparin 5000 subQ q. 12. 4. Humalog medium dose sliding scale coverage before meals and at bedtime. 5. Lopressor 25 mg q. 8. 6. Meropenem 1 g IV q. 12. 7. Nitro paste 1 inch q. 6 hours. 8. Periactin started at 4 mg twice a day. 9. The patient is on Protonix 40 IV q. 12. 10. Reglan 5 mg IV q. 6. 11. Normal saline 0.9 at 50 mL an hour. 12. Tylenol 650 mg q. 6 p.r.n. 13. Zofran 4 mg IV q. 4 p.r.n. The patient's IV medications will be changed to p.o. since patient is started on heart healthy diet. The patient's IV meds will be changed to p.o. The patient's IV Protonix will be changed to p.o. Protonix. The patient is to be continued on the following medications includin. Actigall 300 mg twice a day. 2. Dilaudid 0.5 mg IV q. 4 p.r.n. 3. The patient is started on Diovan 320 mg daily. 4. Heparin 5000 subQ q. 12. 5. Humalog medium dose sliding scale coverage before meals and at bedtime. 6. Lopressor 25 mg p.o. q. 8 hours. 7. Meropenem 1 gram IV q. 12. 8. Periactin 4 mg twice a day. 9. Protonix 40 mg twice a day. 10. Reglan 5 mg IV q. 6 hours, which will be changed to q. 12 hours. 11. The patient will be put on Reglan 5 mg IV q. 12 hours. 12. IV fluids 0.9 at 50 mL an hour. 13. Zofran 4 mg IV q. 4 p.r.n. The patient is started on heart healthy diet since yesterday. The patient is out of bed to chair. SURENDRA atkins, occupational therapy, physical therapy ordered. The patient seen by physical therapist. Their recommendation, patient is not a candidate for skilled PT. Dictated and electronically signed, not read. Ayan Humphries MD cc: [id number] TT: 02/04/2017 12:03:36 Confirmation # [id number] Dictation # [id number] en TOM
[2017-02-04] MEDS ORDERED: Oxycodone/Acetaminophen 5/325 mg Tab PO PRN (12:55)
--- NOTE | 2017-02-04 13:13 | CP.PCM.PN ---
Subjective - Date & Time of Evaluation Date of Evaluation: 02/04/17 Time of Evaluation: 13:10 - Subjective Subjective: PROGRESS NOTE FOR DR. MONTELONGO Patient seen and examined at bedside. Patient transfused 2 units of PRBC. No other acute events overnight. No fevers, chills, N/V. Patient has not had a BM and is not passing gas. Objective - Vital Signs/Intake and Output Vital Signs (last 24 hours): Temp Pulse Resp BP Pulse Ox 98.3 F 95 H 20 178/82 H 97 02/04/17 08:00 02/04/17 08:00 02/04/17 08:00 02/04/17 08:00 02/04/17 08:00 Intake and Output: 02/04/17 02/04/17 06:59 18:59 Intake Total 1230 Balance 1230 - Medications Medications: Current Medications Acetaminophen (Tylenol 325mg Tab) 650 mg PO Q6H PRN PRN Reason: Temperature Last Admin: 02/04/17 08:30 Dose: 650 mg Cyproheptadine HCl (Periactin) 4 mg PO BID [facility] Last Admin: 02/04/17 11:50 Dose: 4 mg Heparin Sodium (Porcine) (Heparin) 5,000 units SC Q12 GEMINI PRN Reason: Protocol Last Admin: 02/04/17 10:23 Dose: Not Given Meropenem 1g/NS 100mL IVPB (Meropenem 1g/Ns 100ml Ivpb) 100 mls @ 100 mls/hr IVPB Q12 GEMINI PRN Reason: Protocol Stop: 02/10/17 09:01 Last Admin: 02/04/17 10:32 Dose: 100 mls/hr Sodium Chloride (Sodium Chloride 0.9%) 1,000 mls @ 50 mls/hr IV .Q20H [facility] Insulin Human Lispro (Humalog Med) 0 units SC ACHS [facility] Last Admin: 02/04/17 11:50 Dose: 3 units Metoclopramide HCl (Reglan) 5 mg IVP Q12 [facility] Metoprolol Tartrate (Lopressor) 25 mg PO Q8H [facility] Last Admin: 02/04/17 08:22 Dose: Not Given Ondansetron HCl (Zofran Inj) 4 mg IVP Q4H PRN PRN Reason: Nausea/Vomiting Oxycodone/Acetaminophen (Percocet 5/325 Mg Tab) 1 tab PO Q4H PRN PRN Reason: Pain, moderate (4-7) Stop: 02/07/17 12:56 Pantoprazole Sodium (Protonix Ec Tab) 40 mg PO 0730,1630 G[facility]I Ursodiol (Actigall) 300 mg PO BID [facility] Valsartan (Diovan) 320 mg PO DAILY [facility] Last Admin: 02/04/17 11:50 Dose: 320 mg - Labs Labs: 02/04/17 06:50 02/04/17 06:50 PT 11.7 Seconds (9.9-11.8) 02/02/17 06:00 INR 1.08 (0.93-1.08) 02/02/17 06:00 APTT 28.0 Seconds (23.7-30.8) 02/02/17 06:00 - Constitutional Appears: Non-toxic, No Acute Distress - ENT Exam ENT Exam: Mucous Membranes Moist - Respiratory Exam Respiratory Exam: absent: Accessory Muscle Use, Respiratory Distress - GI/Abdominal Exam GI & Abdominal Exam: Soft. absent: Distended, Firm, Guarding, Rigid, Tenderness - Neurological Exam Neurological Exam: Alert, Awake, Oriented x3 - Psychiatric Exam Psychiatric exam: Normal Affect, Normal Mood - Skin Skin Exam: Dry, Intact, Normal Color, Warm Assessment and Plan - Assessment and Plan (Free Text) Assessment: 71F s/p laparoscopic cholecystectomy POD2 Plan: - tolerated liquid diet, advance diet as tolerated - H&H is 11.0 after transfusion - monitor vitals - D/C IV antibiotics. Percocet PO for pain control - Abx - encourage ambulation/IS/Stockings Further recs discuss with Dr. Himanshu Morrell, PGY1
--- NOTE | 2017-02-04 15:13 | CP.PCM.PN ---
Subjective - Date & Time of Evaluation Date of Evaluation: 02/04/17 Time of Evaluation: 11:15 - Subjective Subjective: Afebrile overnight, feeling better, much improved abdominal pain, ate her breakfast well. Objective - Vital Signs/Intake and Output Vital Signs (last 24 hours): Temp Pulse Resp BP Pulse Ox 98.3 F 95 H 20 178/82 H 97 02/04/17 08:00 02/04/17 08:00 02/04/17 08:00 02/04/17 08:00 02/04/17 08:00 Intake and Output: 02/04/17 02/04/17 06:59 18:59 Intake Total 1230 Balance 1230 - Medications Medications: Current Medications Acetaminophen (Tylenol 325mg Tab) 650 mg PO Q6H PRN PRN Reason: Temperature Last Admin: 02/04/17 08:30 Dose: 650 mg Heparin Sodium (Porcine) (Heparin) 5,000 units SC Q12 [facility] PRN Reason: Protocol Last Admin: 02/03/17 21:07 Dose: Not Given Hydromorphone HCl (Dilaudid) 0.5 mg IVP Q4H PRN PRN Reason: Pain, moderate (4-7) Last Admin: 02/04/17 02:09 Dose: 0.5 mg Meropenem 1g/NS 100mL IVPB (Meropenem 1g/Ns 100ml Ivpb) 100 mls @ 100 mls/hr IVPB Q12 [facility] PRN Reason: Protocol Stop: 02/10/17 09:01 Last Admin: 02/03/17 21:05 Dose: 100 mls/hr Sodium Chloride (Sodium Chloride 0.9%) 1,000 mls @ 50 mls/hr IV .Q20H [facility] Insulin Human Lispro (Humalog Med) 0 units SC ACHS [facility] Last Admin: 02/04/17 08:22 Dose: 1 units Metoclopramide HCl (Reglan) 5 mg IVP Q6H [facility] Last Admin: 02/04/17 06:24 Dose: 5 mg Metoprolol Tartrate (Lopressor) 25 mg PO Q8H [facility] Last Admin: 02/04/17 08:22 Dose: Not Given Nitroglycerin (Nitro-Bid 2% Oint) 1 ea TOP Q6H [facility] Last Admin: 02/04/17 06:25 Dose: 1 ea Ondansetron HCl (Zofran Inj) 4 mg IVP Q4H PRN PRN Reason: Nausea/Vomiting Pantoprazole Sodium (Protonix Inj) 40 mg IVP Q12 [facility] Last Admin: 02/03/17 21:08 Dose: 40 mg - Labs Labs: 02/04/17 06:50 02/04/17 06:50 PT 11.7 Seconds (9.9-11.8) 02/02/17 06:00 INR 1.08 (0.93-1.08) 02/02/17 06:00 APTT 28.0 Seconds (23.7-30.8) 02/02/17 06:00 - Constitutional Appears: Non-toxic, No Acute Distress - Head Exam Head Exam: NORMAL INSPECTION - Neck Exam Neck Exam: absent: Lymphadenopathy, Meningismus - Respiratory Exam Respiratory Exam: Decreased Breath Sounds - Cardiovascular Exam Cardiovascular Exam: +S1, +S2 - GI/Abdominal Exam GI & Abdominal Exam: Soft. absent: Tenderness Assessment and Plan - Assessment and Plan (Free Text) Plan: Assessment Severe sepsis with acute renal failure (estimated GFR 49) secondary to acute cholecystitis S/P laparoscopic cholecystectomy POD #2, with post-operative fever , which has now resolved; septic work up has been negative and no other focus of infection identified CAD S/P PCI with stents placed DM chronic anemia HTN thalassemia Plan continue Meropenem day 2 and monitor clinically; would target at least 4 days of antibiotics now that she is improving clinically Will monitor clinically
[2017-02-04] MEDS: Pantoprazole 40 mg EC Tab PO SCH (17:06)
[2017-02-04] MEDS: Sodium Chloride 0.9% 1,000 ML IV SCH (18:51)
[2017-02-05] MEDS: Pantoprazole 40 mg EC Tab PO SCH ×2 (06:33→17:25)
[2017-02-05 07:50] LABS: ADD MANUAL DIFF? NO
[2017-02-05] MEDS: Insulin Lispro (humaLOG) MEDIUM Coverage SC SCH ×4 (07:55→22:35)
--- NOTE | 2017-02-05 08:02 | CP.PCM.PN ---
Subjective - Date & Time of Evaluation Date of Evaluation: 02/05/17 Time of Evaluation: 06:10 - Subjective Subjective: SURGERY PROGRESS NOTE FOR DR. PAMLER 71F seen and examined at bedside. Continues to state she does not have an appetite but has been eating a small amount, She denies nausea/vomiting but states she finds it difficult to swallow. She states has not had a bowel movement. Nurse states she currently has a temperature of 100.2. Objective - Vital Signs/Intake and Output Vital Signs (last 24 hours): Temp Pulse Resp BP Pulse Ox 97.3 F L 93 H 20 163/87 H 97 02/04/17 16:00 02/05/17 06:33 02/04/17 16:00 02/05/17 06:33 02/04/17 16:00 Intake and Output: 02/05/17 02/05/17 06:59 18:59 Intake Total 1979 Balance 1979 - Medications Medications: Current Medications Acetaminophen (Tylenol 325mg Tab) 650 mg PO Q6H PRN PRN Reason: Temperature Last Admin: 02/05/17 06:33 Dose: 650 mg Cyproheptadine HCl (Periactin) 4 mg PO BID [facility] Last Admin: 02/04/17 17:10 Dose: 4 mg Heparin Sodium (Porcine) (Heparin) 5,000 units SC Q12 [facility] PRN Reason: Protocol Last Admin: 02/04/17 23:07 Dose: Not Given Meropenem 1g/NS 100mL IVPB (Meropenem 1g/Ns 100ml Ivpb) 100 mls @ 100 mls/hr IVPB Q12 [facility] PRN Reason: Protocol Stop: 02/10/17 09:01 Last Admin: 02/04/17 22:47 Dose: 100 mls/hr Sodium Chloride (Sodium Chloride 0.9%) 1,000 mls @ 50 mls/hr IV .Q20H [facility] Last Admin: 02/04/17 18:51 Dose: 50 mls/hr Insulin Human Lispro (Humalog Med) 0 units SC ACHS [facility] Last Admin: 02/05/17 07:55 Dose: Not Given Metoclopramide HCl (Reglan) 5 mg IVP Q12 [facility] Last Admin: 02/04/17 22:47 Dose: 5 mg Metoprolol Tartrate (Lopressor) 25 mg PO Q8H [facility] Last Admin: 02/05/17 06:33 Dose: 25 mg Ondansetron HCl (Zofran Inj) 4 mg IVP Q4H PRN PRN Reason: Nausea/Vomiting Oxycodone/Acetaminophen (Percocet 5/325 Mg Tab) 1 tab PO Q4H PRN PRN Reason: Pain, moderate (4-7) Stop: 02/07/17 12:56 Pantoprazole Sodium (Protonix Ec Tab) 40 mg PO 0730,1630 [facility] Last Admin: 02/05/17 06:33 Dose: 40 mg Ursodiol (Actigall) 300 mg PO BID [facility] Last Admin: 02/04/17 17:06 Dose: 300 mg Valsartan (Diovan) 320 mg PO DAILY [facility] Last Admin: 02/04/17 11:50 Dose: 320 mg - Labs Labs: 02/04/17 06:50 02/04/17 06:50 PT 11.7 Seconds (9.9-11.8) 02/02/17 06:00 INR 1.08 (0.93-1.08) 02/02/17 06:00 APTT 28.0 Seconds (23.7-30.8) 02/02/17 06:00 - Constitutional Appears: Non-toxic, No Acute Distress, Other (tired) - ENT Exam ENT Exam: Mucous Membranes Moist - Respiratory Exam Respiratory Exam: Clear to Ausculation Bilateral, NORMAL BREATHING PATTERN - Cardiovascular Exam Cardiovascular Exam: REGULAR RHYTHM, +S1, +S2 - GI/Abdominal Exam GI & Abdominal Exam: Soft, Rebound. absent: Distended, Firm, Guarding, Rigid, Tenderness Additional comments: incisional sites CDI - Neurological Exam Neurological Exam: Alert, Awake - Skin Skin Exam: Dry, Intact, Normal Color, Warm Assessment and Plan - Assessment and Plan (Free Text) Assessment: 71F s/p laparoscopic cholecystectomy POD3 Path: Gangrenous cholecystitis Plan: - tolerating diet - f/u AM labs - monitor vitals - Percocet PO for pain control - continue Abx as per ID - serial abd exam - encourage ambulation/IS/Stockings Further recs discuss with Dr. Himanshu Chang, PGY1
[2017-02-05 08:03] LABS: BASO # 0.01 K/mm3 (0.0-2.0); BASO % 0.1 % (0.0-3.0); EOS # 0.2 (0.0-0.7); EOS % 1.1 % (1.5-5.0); GRAN # 12.37 (1.4-6.5); GRAN % 82.7 % (50.0-68.0); HEMATOCRIT 27.7 % (36.0-48.0); LYMPH # 1.8 (1.2-3.4); LYMPH % 11.7 % (22.0-35.0); MEAN CELL VOLUME 59.8 fL (80.0-105.0); MEAN CORPUSCULAR HEMOGLOBIN 20.5 pg (25.0-35.0); MEAN CORPUSCULAR HGB CONC 34.3 g/dl (31.0-37.0); MONO # 0.7 (0.1-0.6); MONO % 4.4 % (1.0-6.0); PLATELET COUNT 240 10^3/uL (120.0-450.0); RED CELL DISTRIBUTION WIDTH 32.2 % (11.5-14.5)
[2017-02-05 08:10] LABS: ALB/GLOB RATIO 0.8 (1.1-1.8); ALKALINE PHOSPHATASE 55 U/L (38-133); ALT/SGPT 41 U/L (7-56); AST/SGOT 28 U/L (15-39); BILIRUBIN,DIRECT 0.5 mg/dL (0.0-0.4); BILIRUBIN,TOTAL 1.7 mg/dL (0.2-1.3); BLOOD UREA NITROGEN 13 mg/dL (7-21); CALCIUM 7.9 mg/dL (8.4-10.5); CARBON DIOXIDE 20 mmol/L (21-33); CHLORIDE 108 mmol/L (95-110); GFR AFRICAN-AMERICAN > 60; GLUCOSE,RANDOM 160 mg/dL (70-110); MAGNESIUM 2.5 mg/dL (1.7-2.2); POTASSIUM 4.3 mmol/L (3.6-5.0); SODIUM 138 mmol/L (132-148)
[2017-02-05] MEDS ORDERED: TOVIAZ PO SCH (10:00)
[2017-02-05] MEDS: Meropenem 1g/NS 100mL IVPB 100 ML IVPB SCH ×2 (10:06→22:02)
[2017-02-05] MEDS ORDERED: FESOTERODINE PO SCH (11:06)
--- NOTE | 2017-02-05 11:19 | PN ---
DATE: 02/05/2017 The patient is seen in room 574, bed 2. The patient still complains of some decreased appetite. PHYSICAL EXAMINATION: VITAL SIGNS: T-max 100.2 this morning. Heart rate in 90s. Blood pressure 162/ 83, 163/87, 161/81, respirations 20, O2 sat 98%. HEAD: Normocephalic, atraumatic. HEENT: Shows pinkish, pale conjunctivae. Dry oral mucosa. NECK: No neck rigidity. CHEST: Kyphosis. LUNGS: Show no rales, crackles, or wheezing. CARDIOVASCULAR: Shows S1, S2, regular rhythm. ABDOMEN: Soft, positive bowel sounds, slightly protuberant. Voluntary guarding noted. No rebound tenderness. GENITALIA: Female. RECTAL: Deferred. EXTREMITIES: Show no pitting edema, no calf tenderness, no Homans' sign. NEUROLOGIC: The patient is alert, awake, oriented x 3. Cranial nerves II-XII intact. Gait examination is independent. MUSCULOSKELETAL: Shows a body mass index of greater than 26. Cranial nerves II -XII intact. PSYCHIATRIC: Negative for anxiety, depression. Negative for auditory or visual hallucinations. Negative for suicidal or homicidal ideation. DIAGNOSTICS: 02/05: WBC count is down to 15,000 from 22,000, hemoglobin is 9.5, hematocrit 27.7, MCV 60, platelet 240, granulocytes 83% segs. Sodium 138, potassium 4.3, chloride 108, CO2 of 20, anion gap 14, BUN 13, creatinine 0.8, GFR greater than 60. Fingerstick blood sugar 160, 148, 182, 93, 236, 285, magnesium is 2.5, calcium is 7.9, total bili has come down to 1.7, 0.3 from 3.0. Direct bili has gone down to 0.5 from 0.7. Repeat urine culture is negative. Blood cultures negative. The patient received 2 units of PRBC. IMPRESSION: 1. New fever versus recurrent fever spikes. 2. Acute gangrenous cholecystitis. 3. Status post laparoscopic cholecystectomy, postoperative day 3. 4. Fever. 5. Tachycardia. 6. Sepsis. 7. Hypertension. 8. Leukocytosis with granulocytosis. 9. Microcytic anemia. 10. Status post packed red blood cell transfusion x 2. 11. Leukocytosis with granulocytosis. 12. Noninsulin requiring diabetes mellitus. 13. Hyponatremia 14. Hypocalcemia. 15. Hypomagnesemia. 16. Hyperbilirubinemia and transaminitis (resolving). 17. Questionable multiple species versus contamination urinary tract infection with proteinuria, glycosuria, microscopic hematuria, pyuria, bacteriuria and funguria. 18. Status post laparoscopic cholecystectomy with intraoperative cholangiogram postoperative day 3. 19. Acute cholecystitis and symptomatic cholelithiasis with distended gallbladder. 20. Questionable Insomnia. 21. Hypertension. 22. Tachycardia. 23. Questionable anorexia. 24. Diabetic gastroparesis. 1. Acute gangrenous cholecystitis, secondary to cholelithiasis. 2. Status post laparoscopic cholecystectomy and intraoperative cholangiogram, postop day 2. 3. Hypertension. 4. Sepsis with high-grade fever, leukocytosis, granulocytosis, tachycardia. 5. Microcytic anemia, status post packed red blood cell transfusion x 2. 6. Leukocytosis with granulocytosis. 7. Hyponatremia. 8. Noninsulin requiring type 2 diabetes mellitus with hyperglycemia. 9. Hyperbilirubinemia. 10. Mild transaminitis. 11. Questionable anorexia. 12. Questionable urinary tract infection with multiple species and proteinuria , glycosuria, microscopic hematuria, pyuria and funguria. 13. Status post packed red blood cell transfusion x 2. 14. Status post laparoscopic cholecystectomy. 1. Acute cholecystitis with cholelithiasis and gallbladder wall thickening. 2. Acute gangrenous cholecystitis and cholelithiasis. 3. Status post laparoscopic cholecystectomy and intraoperative cholangiogram. 4. High-grade fever. 5. Questionable sepsis versus systemic inflammatory response syndrome. 6. Tachycardia. 7. Hypertension. 8. Leukocytosis with granulocytosis. 9. Microcytic anemia and decreasing hemoglobin and hematocrit. 10. Mild hyponatremia. 12. Noninsulin requiring type 2 diabetes mellitus with hyperglycemia. 13. Hypomagnesemia. 14. Hyperbilirubinemia. 15. Questionable mild transaminitis. 16. Questionable urinary tract infection with proteinuria, glycosuria, microscopic hematuria, pyuria, funguria, with multiple urinary tract infections...multiple species urinary tract infection. 17. O-positive blood type. 18. Acute cholecystitis with nonvisualization of gallbladder on HIDA scan, and multiple cholelithiasis and gallbladder sludge with...with...with just moderately distended gallbladder. 19. Tachycardia. 20. History of coronary artery disease, history of angioplasty of obtuse marginal-1 21. Status post laparoscopic cholecystectomy and intraoperative cholangiogram, postoperative day #1. 1. Abdominal pain involving upper abdomen, right upper quadrant. 2. Possible acute cholecystitis with multiple cholelithiasis and distended gallbladder. 3. Fatty pancreatic atrophy. 4. Fecal stasis and constipation. 5. 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 6. Gallbladder sludge with distended gallbladder and cholelithiasis. 7. Hypertension. 8. Leukocytosis. 9. Microcytic anemia and thalassemia intermedia. 10. Type 2 diabetes mellitus. 11. Mild hyperbilirubinemia. 12. History of hypertension, diabetes, dyslipidemia and coronary artery disease. 13. Proteinuria, glycosuria, microscopic hematuria, pyuria, funguria. 14. History of coronary artery disease, coronary angioplasty. 15. Anemia. PLAN: At this time, patient has to be continued on serial labs. CONSULTATIONS: Surgical, infectious disease, GI consultation. The patient's fever curve needs to be monitored. The patient is on meropenem 1 g IV q. 12. The patient requires repeat ID followup and evaluation. CURRENT MEDICATIONS: 1. Actigall 300 mg twice a day. 2. Diovan 320 mg daily. 3. Heparin 5000 subQ q. 12. 4. Toviaz 4 mg daily. 5. Humalog medium dose sliding scale coverage a.c. and at bedtime 6. Lopressor 25 mg q. 8. 7. Meropenem 1 g IV q. 12 8. Periactin 4 mg twice a day. 9. Protonix 40 mg daily. 10. Reglan 5 mg IV q. 12. 11. 0.9 normal saline at 50 mL an hour. 12. Tylenol 650 q. 6 p.r.n. Consistent carbohydrate diet. I's and O's, out of bed, [place] Sun. At present, patient is awaiting for reevaluation by surgery, GI, infectious disease and depending upon the patient's evaluation by them and depending upon the patient's hemodynamic status and fever status, the patient will be considered for transfer to TCU if medically stable which has been explained and discussed with the patient at length and all questions and concerns answered. In addition, the patient's metoprolol will be changed to 50 mg twice a day because of hypertension and tachycardia. The patient has been updated about her condition, diagnosis, treatment plan, management plan at length. The patient has been advised out of bed ad terrell. Ambulate. At present, the patient also required Ambien for sleep last night which will be ordered for as needed p.r.n. Dictated and electronically signed, not read. Ayan Humphries MD cc: [id number] TT: 02/05/2017 11:18:33 Confirmation # [id number] Dictation # [id number] timur MTDLory
[2017-02-05] MEDS: Sodium Chloride 0.9% 1,000 ML IV SCH (17:25)
--- NOTE | 2017-02-05 18:23 | CP.PCM.PN ---
Subjective - Date & Time of Evaluation Date of Evaluation: 02/05/17 Time of Evaluation: 12:20 - Subjective Subjective: Afebrile, eating well, not in distress. No abdominal pain. Objective - Vital Signs/Intake and Output Vital Signs (last 24 hours): Temp Pulse Resp BP Pulse Ox 99.5 F 93 H 20 162/83 H 98 02/05/17 07:33 02/05/17 07:30 02/05/17 07:30 02/05/17 07:30 02/05/17 07:30 Intake and Output: 02/05/17 02/05/17 06:59 18:59 Intake Total 1980 Balance 1979 - Medications Medications: Current Medications Acetaminophen (Tylenol 325mg Tab) 650 mg PO Q6H PRN PRN Reason: Temperature Last Admin: 02/05/17 06:33 Dose: 650 mg Cyproheptadine HCl (Periactin) 4 mg PO BID [facility] Last Admin: 02/05/17 10:05 Dose: 4 mg Heparin Sodium (Porcine) (Heparin) 5,000 units SC Q12 [facility] PRN Reason: Protocol Last Admin: 02/05/17 10:05 Dose: Not Given Home Med (Home Med) 1 unit PO DAILY [facility] Meropenem 1g/NS 100mL IVPB (Meropenem 1g/Ns 100ml Ivpb) 100 mls @ 100 mls/hr IVPB Q12 [facility] PRN Reason: Protocol Stop: 02/10/17 09:01 Last Admin: 02/05/17 10:06 Dose: 100 mls/hr Sodium Chloride (Sodium Chloride 0.9%) 1,000 mls @ 50 mls/hr IV .Q20H [facility] Last Admin: 02/04/17 18:51 Dose: 50 mls/hr Insulin Human Lispro (Humalog Med) 0 units SC ACHS [facility] Last Admin: 02/05/17 07:55 Dose: Not Given Metoclopramide HCl (Reglan) 5 mg IVP Q12 [facility] Last Admin: 02/05/17 10:05 Dose: 5 mg Metoprolol Tartrate (Lopressor) 25 mg PO Q8H [facility] Last Admin: 02/05/17 06:33 Dose: 25 mg Pantoprazole Sodium (Protonix Ec Tab) 40 mg PO 0730,1630 [facility] Last Admin: 02/05/17 06:33 Dose: 40 mg Ursodiol (Actigall) 300 mg PO BID [facility] Last Admin: 02/05/17 10:05 Dose: 300 mg Valsartan (Diovan) 320 mg PO DAILY [facility] Last Admin: 02/05/17 10:05 Dose: 320 mg - Labs Labs: 02/05/17 07:35 02/05/17 07:35 PT 11.7 Seconds (9.9-11.8) 02/02/17 06:00 INR 1.08 (0.93-1.08) 02/02/17 06:00 APTT 28.0 Seconds (23.7-30.8) 02/02/17 06:00 - Constitutional Appears: Non-toxic, No Acute Distress - Head Exam Head Exam: NORMAL INSPECTION - Neck Exam Neck Exam: absent: Lymphadenopathy, Meningismus - Respiratory Exam Respiratory Exam: Decreased Breath Sounds - Cardiovascular Exam Cardiovascular Exam: +S1, +S2 - GI/Abdominal Exam GI & Abdominal Exam: Soft. absent: Tenderness Assessment and Plan - Assessment and Plan (Free Text) Plan: Assessment Severe sepsis with acute renal failure (estimated GFR 49) secondary to acute gangrenous cholecystitis S/P laparoscopic cholecystectomy POD #3, with post- operative fever, which has now resolved; septic work up has been negative and no other focus of infection identified; clinically much improved CAD S/P PCI with stents placed DM chronic anemia HTN thalassemia Plan continue Meropenem day 3 and monitor clinically; would target at least 4 days of antibiotics now that she is improving clinically
[2017-02-06] MEDS: Insulin Lispro (humaLOG) MEDIUM Coverage SC SCH ×2 (07:57→11:33)
[2017-02-06 08:06] LABS: ADD MANUAL DIFF? NO
[2017-02-06 08:15] LABS: BASO # 0.01 K/mm3 (0.0-2.0); BASO % 0.1 % (0.0-3.0); EOS # 0.3 (0.0-0.7); EOS % 2.5 % (1.5-5.0); GRAN # 6.99 (1.4-6.5); GRAN % 69.7 % (50.0-68.0); HEMATOCRIT 27.7 % (36.0-48.0); LYMPH % 20.1 % (22.0-35.0); MEAN CORPUSCULAR HEMOGLOBIN 19.9 pg (25.0-35.0); MEAN CORPUSCULAR HGB CONC 33.2 g/dl (31.0-37.0); MONO # 0.8 (0.1-0.6); MONO % 7.6 % (1.0-6.0); PLATELET COUNT 252 10^3/uL (120.0-450.0); RED CELL DISTRIBUTION WIDTH 32.8 % (11.5-14.5)
--- NOTE | 2017-02-06 08:24 | PN ---
DATE: 02/05/2017 This patient was seen and evaluated earlier. The patient has been doing well now. PHYSICAL EXAMINATION: VITAL SIGNS: Temperature 97.7, pulse 89, blood pressure is 170/88. HEENT: Atraumatic, anicteric. NECK: Supple. HEART: S1, S2 heard. LUNGS: Bilateral normal vesicular breath sounds. ABDOMEN: Soft. There is no tenderness. EXTREMITIES: No cyanosis, no clubbing. LABORATORY DATA: Hemoglobin is 9.5, WBCs 15.0, platelets 240. LFTs show total bilirubin is 1.7. It has come down from 3.0. Alkaline phosphatase normal. AST and ALT also were normal. IMPRESSION: This 71-year-old patient was admitted with acute cholecystitis, status post cholecystect barry for acute gangrenous gallbladder, had T-max of 102, on IV antibiotics, meropenem. The patient di d have mildly elevated total bilirubin, which is now coming down. Other comorbidities include diabet es mellitus, hypertension. We will continue to follow up the LFTs. We will continue to closely foll ow up her care and suggest further management based on the clinical course. Thank you very much for allowing us to participate in the care of the patient. Tiarra Chaves MD cc: [phone] TT: 02/06/2017 08:23:42 Confirmation # [id number] Dictation # [id number] en
[2017-02-06 08:28] LABS: ALB/GLOB RATIO 0.8 (1.1-1.8); ALKALINE PHOSPHATASE 50 U/L (38-133); ALT/SGPT 29 U/L (7-56); AST/SGOT 22 U/L (15-39); BILIRUBIN,DIRECT 0.4 mg/dL (0.0-0.4); BILIRUBIN,TOTAL 1.3 mg/dL (0.2-1.3); BLOOD UREA NITROGEN 10 mg/dL (7-21); CALCIUM 8.1 mg/dL (8.4-10.5); CARBON DIOXIDE 21 mmol/L (21-33); CHLORIDE 107 mmol/L (95-110); GFR AFRICAN-AMERICAN > 60; GLUCOSE,RANDOM 151 mg/dL (70-110); MAGNESIUM 2.3 mg/dL (1.7-2.2); POTASSIUM 4.5 mmol/L (3.6-5.0); SODIUM 138 mmol/L (132-148); TOTAL PROTEIN 6.9 g/dL (5.8-8.3)
--- NOTE | 2017-02-06 08:32 | CP.PCM.PN ---
Subjective - Date & Time of Evaluation Date of Evaluation: 02/06/17 Time of Evaluation: 08:00 - Subjective Subjective: (covering for Dr. Humphries) Patient is seen this morning. She says her pain is not too bad. Denies nausea. Objective - Vital Signs/Intake and Output Vital Signs (last 24 hours): Temp Pulse Resp BP Pulse Ox 99.4 F 89 20 170/88 H 98 02/06/17 07:30 02/05/17 16:00 02/05/17 16:00 02/05/17 17:25 02/05/17 16:00 Intake and Output: 02/06/17 02/06/17 06:59 18:59 Intake Total 1720 Balance 1720 - Medications Medications: Current Medications Acetaminophen (Tylenol 325mg Tab) 650 mg PO Q6H PRN PRN Reason: Temperature Last Admin: 02/06/17 05:15 Dose: 650 mg Cyproheptadine HCl (Periactin) 4 mg PO BID [facility] Last Admin: 02/05/17 17:25 Dose: 4 mg Heparin Sodium (Porcine) (Heparin) 5,000 units SC Q12 [facility] PRN Reason: Protocol Last Admin: 02/05/17 22:34 Dose: Not Given Home Med (Home Med) 1 unit PO DAILY [facility] Meropenem 1g/NS 100mL IVPB (Meropenem 1g/Ns 100ml Ivpb) 100 mls @ 100 mls/hr IVPB Q12 [facility] PRN Reason: Protocol Stop: 02/10/17 09:01 Last Admin: 02/05/17 22:02 Dose: 100 mls/hr Sodium Chloride (Sodium Chloride 0.9%) 1,000 mls @ 50 mls/hr IV .Q20H [facility] Last Admin: 02/05/17 17:25 Dose: 50 mls/hr Insulin Human Lispro (Humalog Med) 0 units SC ACHS [facility] Last Admin: 02/06/17 07:57 Dose: Not Given Metoclopramide HCl (Reglan) 5 mg IVP Q12 [facility] Last Admin: 02/05/17 22:02 Dose: 5 mg Metoprolol Tartrate (Lopressor) 50 mg PO BID [facility] Last Admin: 02/05/17 17:25 Dose: 50 mg Pantoprazole Sodium (Protonix Ec Tab) 40 mg PO 0730,1630 [facility] Last Admin: 02/05/17 17:25 Dose: 40 mg Ursodiol (Actigall) 300 mg PO BID [facility] Last Admin: 02/05/17 17:25 Dose: 300 mg Valsartan (Diovan) 320 mg PO DAILY [facility] Last Admin: 02/05/17 10:05 Dose: 320 mg Zolpidem Tartrate (Ambien) 5 mg PO HS PRN; Protocol PRN Reason: Insomnia Last Admin: 02/05/17 22:01 Dose: 5 mg - Labs Labs: 02/05/17 07:35 02/05/17 07:35 PT 11.7 Seconds (9.9-11.8) 02/02/17 06:00 INR 1.08 (0.93-1.08) 02/02/17 06:00 APTT 28.0 Seconds (23.7-30.8) 02/02/17 06:00 - Constitutional Appears: No Acute Distress - Head Exam Head Exam: ATRAUMATIC, NORMOCEPHALIC - Respiratory Exam Respiratory Exam: Clear to Ausculation Bilateral, NORMAL BREATHING PATTERN - Cardiovascular Exam Cardiovascular Exam: +S1, +S2 - GI/Abdominal Exam Additional comments: s/p lap cholecystectomy - Extremities Exam Extremities Exam: Normal Inspection - Neurological Exam Neurological Exam: Alert, Awake, Oriented x3 Assessment and Plan - Assessment and Plan (Free Text) Assessment: Acute gangrenous cholecystitis s/p lap cholecystectomy HTN Diabetes mellitus Plan: Patient feeling better. She will go to TRCU today. continue antibiotics as per ID
[2017-02-06 09:04] VITALS: PULSE 96; O2SAT 94
[2017-02-06] MEDS: Meropenem 1g/NS 100mL IVPB 100 ML IVPB SCH (09:09)
[2017-02-06] MEDS: Pantoprazole 40 mg EC Tab PO SCH (09:11)
[2017-02-06 09:15] VITALS: BP 165/78
[2017-02-06 11:37] VITALS: TEMP 98.8
--- NOTE | 2017-02-06 13:50 | PN ---
DATE: 02/06/2017 The patient is in bed, in no acute distress, nontoxic, was seen early this morning, doing better. PHYSICAL EXAMINATION: VITAL SIGNS: Temperature is 98, blood pressure is 160/70, respiratory rate of 16. HEENT: Unremarkable. NECK: Supple. LUNGS: Have decreased breath sounds. HEART: Normal S1, S2. ABDOMEN: Soft. LABORATORY EXAMINATION: Noted. ASSESSMENT AND PLAN: A 71-year-old female with severe sepsis, status post acute renal failure second [place] to acute gangrenous cholecystitis, laparoscopic postop day #4 and clinically doing much better. Phani Valadez MD cc: [phone] TT: 02/06/2017 13:49:48 Confirmation # [id number] Dictation # [id number] en
--- NOTE | 2017-02-07 09:01 | CP.PCM.DIS ---
Provider - Provider Date of Admission: 02/02/17 13:55 DATE OF DISCHARGE 02/06/2017 Attending physician: Ayan Humphries MD Primary care physician: Ayan Humphries MD Time Spent in preparation of Discharge (in minutes): 45 Hospital Course - Lab Results Lab Results: Micro Results 02/02/17 16:30 Blood Blood Culture - Preliminary NO GROWTH AFTER 4 DAYS 02/02/17 16:15 Blood Blood Culture - Preliminary NO GROWTH AFTER 4 DAYS 02/03/17 05:29 Urine,Clean Catch Urine Culture - Final No Growth (<1,000 CFU/ML) Most Recent Lab Values WBC 10.0 10^3/ul (4.5-11.0) D 02/06/17 08:03 RBC 4.62 10^6/uL (3.5-6.1) 02/06/17 08:03 Hgb 9.2 gm/dL (12.0-16.0) L 02/06/17 08:03 Hct 27.7 % (36.0-48.0) L 02/06/17 08:03 MCV 60.0 fL (80.0-105.0) L 02/06/17 08:03 MCH 19.9 pg (25.0-35.0) L 02/06/17 08:03 MCHC 33.2 g/dl (31.0-37.0) 02/06/17 08:03 RDW 32.8 % (11.5-14.5) H 02/06/17 08:03 Plt Count 252 10^3/uL (120.0-450.0) 02/06/17 08:03 Gran % 69.7 % (50.0-68.0) H 02/06/17 08:03 Lymph % (Auto) 20.1 % (22.0-35.0) L 02/06/17 08:03 Gilchrist % (Auto) 7.6 % (1.0-6.0) H 02/06/17 08:03 Eos % (Auto) 2.5 % (1.5-5.0) 02/06/17 08:03 Baso % (Auto) 0.1 % (0.0-3.0) 02/06/17 08:03 Gran # 6.99 (1.4-6.5) H 02/06/17 08:03 Lymph # 2.0 (1.2-3.4) 02/06/17 08:03 Gilchrist # 0.8 (0.1-0.6) H 02/06/17 08:03 Eos # 0.3 (0.0-0.7) 02/06/17 08:03 Baso # 0.01 K/mm3 (0.0-2.0) 02/06/17 08:03 Neutrophils % (Manual) 92 % (50.0-70.0) H 02/04/17 06:50 Band Neutrophils % 2 % (0-2) 02/04/17 06:50 Lymphocytes % (Manual) 3 % (22.0-35.0) L 02/04/17 06:50 Monocytes % (Manual) 2 % (1.0-6.0) 02/04/17 06:50 Eosinophils % (Manual) 1 % (0.0-3.0) 02/02/17 06:00 Nucleated RBC % 4 % 02/02/17 06:00 Platelet Evaluation Normal (NORMAL) 02/04/17 06:50 Hypochromasia 3+ 02/04/17 06:50 Poikilocytosis (manual 1+ 02/04/17 06:50 Anisocytosis (manual) 1+ 02/04/17 06:50 Microcytosis (manual) 3+ 02/04/17 06:50 Target Cells 1+ 02/04/17 06:50 Tear Drop Cells Slight 02/04/17 06:50 Ovalocytes Slight 02/04/17 06:50 PT 11.7 Seconds (9.9-11.8) 02/02/17 06:00 INR 1.08 (0.93-1.08) 02/02/17 06:00 APTT 28.0 Seconds (23.7-30.8) 02/02/17 06:00 pO2 196 mm/Hg (30-55) H 02/02/17 08:30 VBG pH 7.38 (7.32-7.43) 02/02/17 08:30 VBG pCO2 42.0 (40-60) 02/02/17 08:30 VBG HCO3 24.8 mmol/l (21-28) 02/02/17 08:30 VBG Total CO2 26.1 mmol.L (22-28) 02/02/17 08:30 VBG O2 Sat (Calc) 99.2 % (40-65) H 02/02/17 08:30 VBG Base Excess -0.4 mmol/L (0.0-2.0) L 02/02/17 08:30 VBG Potassium 4.4 mmol/L (3.6-5.2) 02/02/17 08:30 Sodium 135.0 mmol/L (132-148) 02/02/17 08:30 Chloride 104.0 mmol/L (98-107) 02/02/17 08:30 Glucose 278 mg/dl (65-105) H 02/02/17 08:30 Lactate 1.6 mmol/L (0.7-2.1) 02/02/17 08:30 FiO2 21.0 % 02/02/17 08:30 Sodium 138 mmol/L (132-148) 02/06/17 08:03 Potassium 4.5 mmol/L (3.6-5.0) 02/06/17 08:03 Chloride 107 mmol/L (95-110) 02/06/17 08:03 Carbon Dioxide 21 mmol/L (21-33) 02/06/17 08:03 Anion Gap 15 (10-20) 02/06/17 08:03 BUN 10 mg/dL (7-21) 02/06/17 08:03 Creatinine 0.8 mg/dL (0.5-1.4) 02/06/17 08:03 Est GFR ( Amer) > 60 02/06/17 08:03 Est GFR (Non-Af Amer) > 60 02/06/17 08:03 POC Glucose (mg/dL) 162 mg/dL (65-110) H 02/06/17 11:28 Random Glucose 151 mg/dL (70-110) H 02/06/17 08:03 Calcium 8.1 mg/dL (8.4-10.5) L 02/06/17 08:03 Magnesium 2.3 mg/dL (1.7-2.2) H 02/06/17 08:03 Total Bilirubin 1.3 mg/dL (0.2-1.3) 02/06/17 08:03 Direct Bilirubin 0.4 mg/dL (0.0-0.4) 02/06/17 08:03 AST 22 U/L (15-39) 02/06/17 08:03 ALT 29 U/L (7-56) 02/06/17 08:03 Alkaline Phosphatase 50 U/L (38-133) 02/06/17 08:03 Lactate Dehydrogenase 390 U/L (333-699) 02/02/17 06:00 Total Creatine Kinase 24 U/L (35-230) L 02/02/17 06:00 Troponin I < 0.01 ng/mL 02/02/17 06:00 Total Protein 6.9 g/dL (5.8-8.3) 02/06/17 08:03 Albumin 3.2 g/dL (3.0-4.8) 02/06/17 08:03 Globulin 3.7 gm/dL 02/06/17 08:03 Albumin/Globulin Ratio 0.8 (1.1-1.8) L 02/06/17 08:03 Triglycerides 67 mg/dL (35-160) 02/02/17 12:50 Cholesterol 110 mg/dL (130-200) L 02/02/17 12:50 LDL Cholesterol Direct 54 mg/dL (0-129) 02/02/17 12:50 HDL Cholesterol 34 mg/dL (29-60) 02/02/17 12:50 Amylase 109 U/L (35-125) 02/02/17 06:00 Lipase 67 U/L (23-300) 02/02/17 06:00 Venous Blood Potassium 4.4 mmol/L (3.6-5.2) 02/02/17 08:30 Urine Color Yellow (YELLOW) 02/02/17 05:50 Urine Appearance Cloudy (CLEAR) 02/02/17 05:50 Urine pH 7.5 (4.7-8.0) 02/02/17 05:50 Ur Specific [place] 1.025 (1.005-1.035) 02/02/17 05:50 Urine Protein 30 mg/dL (<30 mg/dL) H 02/02/17 05:50 Urine Glucose (UA) 500 mg/dL (NEGATIVE) H 02/02/17 05:50 Urine Ketones Negative mg/dL (NEGATIVE) 02/02/17 05:50 Urine Blood Trace-intact (NEGATIVE) H 02/02/17 05:50 Urine Nitrate Negative (NEGATIVE) 02/02/17 05:50 Urine Bilirubin Negative (NEGATIVE) 02/02/17 05:50 Urine Urobilinogen 1.0 E.U./dL (<1 E.U./dL) H 02/02/17 05:50 Ur Leukocyte Esterase Moderate [place]/uL (NEGATIVE) H 02/02/17 05:50 Urine RBC 1 - 3 /hpf (0-2) 02/02/17 05:50 Urine WBC 2 - 5 /hpf (0-6) 02/02/17 05:50 Ur Epithelial Cells 1 - 3 /hpf (0-5) 02/02/17 05:50 Urine Bacteria Small (NEG) 02/02/17 05:50 Urine Other Uyeast 02/02/17 05:50 Blood Type O POSITIVE 02/02/17 18:00 Antibody Screen Negative 02/02/17 18:00 Crossmatch See Detail 02/02/17 18:00 BBK History Checked Patient has bt 02/02/17 18:00 - Hospital Course Hospital Course: [facility] [address] [place] [address] Health Information Management History and Physical Report : [id number] Draft Patient: NANCY NICHOLE Unit: [id number] : 1945 Loc: [facility] Room/Bed: 699-O02 Age/Sex: 71 / F ADM Status: ADM IN ADM Date: Copied To: Attending MD: Meliton Lynn DO, Jr HISTORY OF PRESENT ILLNESS: The patient is seen in Emergency Room in bed 6. The patient presented with less than 24 hours complaint of abdominal pain in the lower abdominal periumbilical upper quadrant of abdomen area. The patient denies one episode of diarrhea. The patient denies any hemoptysis, hematemesis , melena. The patient had episodes of nausea and vomiting. REVIEW OF SYSTEMS: A 13-system review was done. Pertinent positive and negative dictated above. CODE STATUS: Full code. LIVING WILL AND ADVANCED DIRECTIVE: None. ALLERGIES: None. HEIGHT: 5 feet 3 inches. WEIGHT: 148. BODY MASS INDEX: 26. SOCIAL HISTORY: Denies smoking. Denies alcohol. Denies substance abuse. MENSTRUAL HISTORY: Postmenopausal. FAMILY HISTORY: Positive for diabetes, hypertension. PAST MEDICAL AND SURGICAL HISTORY: History of thalassemia, history of anemia, history of multiple packed red blood cell transfusion, history of multiple packed red blood cell transfusion, history of coronary artery disease, history of angina, history of coronary angioplasty and stent placement, history of symptomatic anemia, history of hypertension, history of dyslipidemia, history of diabetic gastroparesis, history of anxiety disorder, history of questionable urinary ____, history of recurrent urinary tract colonization, history of overactive bladder with urinary incontinence, urgency and frequency; history of hypertension, history of diabetes, history of anemia, history of hypovitaminosis D, history of pyuria, history of osteopenia, history of normal stress in 2015, history of chronic gastritis, history of calcified mitral valve , history of mild LVH. The patient's past medical history is also significant for history of coronary artery disease with coronary angioplasty of obtuse marginal 1. The patient's past medical history is significant for single vessel coronary artery disease with 80% stenosis of the mid obtuse marginal 1, history of unstable angina, history of acute coronary syndrome, history of thalassemia. Past medical history significant for thalassemia intermedia, history of microcytic anemia, history of obstructive jaundice, history of duodenitis, gastritis; history of ERCP done in 2007, history of narrowing of the proximal common bile duct, history of renal cyst, history of dilated common bile duct about 7.5 mm, history of fatty liver, history of degenerative joint disease of the cervical spine, history of tubal ligation, history of nonvisualized left ovary, history of duodenitis. PHYSICAL EXAMINATION: GENERAL: The patient seen in Emergency Room bed 6. The patient was also seen in the [facility] area. VITAL SIGNS: T-max 98.7, heart rate 76-____. Blood pressure 173/67, 168/90, 183/84. Respiration 18, O2 sat 99% to 100%. HEAD: Normocephalic, atraumatic. HEENT: Shows pale conjunctivae, dry oral mucosa. NECK: No neck rigidity. CHEST: Kyphosis. LUNGS: Shows no rales, crackles, or wheezing. CARDIOVASCULAR: Shows S1, S2, regular rhythm. ABDOMEN: Soft. Positive epigastric, positive right upper quadrant tenderness. Questionable rebound tenderness. Positive periumbilical tenderness. No costovertebral angle tenderness. GENITALIA: Female. RECTAL: Deferred. EXTREMITIES: Shows no pitting edema, no calf tenderness, no Homans' sign. VASCULAR: Palpable pulses. MUSCULOSKELETAL: Shows a body mass index of 26. NEUROLOGIC: Cranial nerves II-XII intact. Gait examination not tested. DIAGNOSTICS: WBC 13.1, hemoglobin and hematocrit 9.8 and 29.2, platelets 338. PT, PTT 11.7 and 28.0. Lactate was 1.6. Chemistries significant for sodium 135 , potassium 4.3, chloride 98, CO2 of 25, anion gap 16, BUN 13, creatinine 1.1, GFR greater than 59. Glucose 258, bilirubin 1.4. CPK 24. Troponin negative. Amylase and lipase negative. Urine pH 7.5, specific gravity 1.225, protein 30, urine glucose 500, trace intact blood, moderate leukocyte esterase, bacteria small, yeast present. CT of the abdomen and pelvis and ultrasound of the abdomen was done in the Emergency Room, results reviewed. EKG done in the Emergency Room shows sinus rhythm, no ST elevation noted. EKG shows normal sinus rhythm. The patient was seen in the Emergency Room by the ER physician. The patient was also seen in the Emergency Room by the surgical garment assembly supervisor. The ER physician contacted Dr. Downs, surgeon on-call. He advised the patient to undergo HIDA scan. TREATMENT IN THE EMERGENCY ROOM: The patient was seen in the Emergency Room. The patient was given morphine 2 mg and 5 mg. The patient was given Protonix. The patient was given ____. IMPRESSION AND PLAN: 1. Abdominal pain involving upper abdomen, right upper quadrant. 2. Possible acute cholecystitis with multiple cholelithiasis and distended gallbladder. 3. Fatty pancreatic atrophy. 4. Fecal stasis and constipation. 5. 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 6. Gallbladder sludge with distended gallbladder and cholelithiasis. 7. Hypertension. 8. Leukocytosis. 9. Microcytic anemia and thalassemia intermedia. 10. Type 2 diabetes mellitus. 11. Mild hyperbilirubinemia. 12. History of hypertension, diabetes, dyslipidemia and coronary artery disease. 13. Proteinuria, glycosuria, microscopic hematuria, pyuria, funguria. 14. History of coronary artery disease, coronary angioplasty. 15. Anemia. PLAN: At this time, patient will be admitted to [facility]. The patient has been ordered serial labs. Blood and urine cultures ordered. Consultation with gastroenterology, surgery already requested The patient is on D5 half normal 80 mL an hour, Flagyl 500 IV q.8. Humalog medium dose sliding scale coverage q.6. The patient is started on Nitro paste 1 inch q.6 hours, Dilaudid 0.5 mg IV q.4 hours p.r.n. for pain is ordered. The patient is started on Protonix 40 IV q.12, Reglan 5 mg IV q.6. The patient is started on Zofran 4 IV q.4, Zosyn 3.375 grams IV q.6 hours. The patient's HIDA scan was reviewed. Preliminary report says nonvisualized gallbladder. We are waiting for the delayed imaging. In addition, patient will also be consulted with cardiology for possible preop clearance if patient requires to undergo surgical intervention. The patient's condition, diagnosis, need for hospitalization, need for further management, need for further diagnostic therapeutic intervention discussed and explained to the patient at length. All questions and concerns answered. The patient was seen and examined in bed 6 in the Emergency Room. All details discussed and explained to the patient at length. All questions and concerns answered. Dictated and electronically signed, not read. Ayan Humphries MD cc: [id number] TT: 02/02/2017 13:54:19 sn Dictated By: Ayan Humphries MD Transcribed Date and Time: 02/02/17 1354 Transcribed By: TOMASZ Signed By: Date & Time Signed: Co-Signed By: Date & Time Signed: Discharge Exam - Head Exam Head Exam: ATRAUMATIC, NORMOCEPHALIC - Additional Findings Additional findings: DATE: 02/06/2017 The patient is seen in room 574, bed 2. The patient still complains of some decreased appetite. PHYSICAL EXAMINATION: VITAL SIGNS: T-max 100.2 this morning. Heart rate in 90s. Blood pressure 162/ 83, 163/87, 161/81, respirations 20, O2 sat 98%. HEAD: Normocephalic, atraumatic. HEENT: Shows pinkish, pale conjunctivae. Dry oral mucosa. NECK: No neck rigidity. CHEST: Kyphosis. LUNGS: Show no rales, crackles, or wheezing. CARDIOVASCULAR: Shows S1, S2, regular rhythm. ABDOMEN: Soft, positive bowel sounds, slightly protuberant. Voluntary guarding noted. No rebound tenderness. GENITALIA: Female. RECTAL: Deferred. EXTREMITIES: Show no pitting edema, no calf tenderness, no Homans' sign. NEUROLOGIC: The patient is alert, awake, oriented x 3. Cranial nerves II-XII intact. Gait examination is independent. MUSCULOSKELETAL: Shows a body mass index of greater than 26. Cranial nerves II -XII intact. PSYCHIATRIC: Negative for anxiety, depression. Negative for auditory or visual hallucinations. Negative for suicidal or homicidal ideation. DIAGNOSTICS: 02/05: WBC count is down to 15,000 from 22,000, hemoglobin is 9.5, hematocrit 27.7, MCV 60, platelet 240, granulocytes 83% segs. Sodium 138, potassium 4.3, chloride 108, CO2 of 20, anion gap 14, BUN 13, creatinine 0.8, GFR greater than 60. Fingerstick blood sugar 160, 148, 182, 93, 236, 285, magnesium is 2.5, calcium is 7.9, total bili has come down to 1.7, 0.3 from 3.0. Direct bili has gone down to 0.5 from 0.7. Repeat urine culture is negative. Blood cultures negative. The patient received 2 units of PRBC. FINAL IMPRESSION PLAN & DISCHARGE DIAGNOSES: 1. New fever versus recurrent fever spikes. 2. Acute gangrenous cholecystitis. 3. Status post laparoscopic cholecystectomy, postoperative day 3. 4. Fever. 5. Tachycardia. 6. Sepsis. 7. Hypertension. 8. Leukocytosis with granulocytosis. 9. Microcytic anemia. 10. Status post packed red blood cell transfusion x 2. 11. Leukocytosis with granulocytosis. 12. Noninsulin requiring diabetes mellitus. 13. Hyponatremia 14. Hypocalcemia. 15. Hypomagnesemia. 16. Hyperbilirubinemia and transaminitis (resolving). 17. Questionable multiple species versus contamination urinary tract infection with proteinuria, glycosuria, microscopic hematuria, pyuria, bacteriuria and funguria. 18. Status post laparoscopic cholecystectomy with intraoperative cholangiogram postoperative day 3. 19. Acute cholecystitis and symptomatic cholelithiasis with distended gallbladder. 20. Questionable Insomnia. 21. Hypertension. 22. Tachycardia 23. Questionable anorexia. 24. Diabetic gastroparesis. 1. New fever versus recurrent fever spikes. 2. Acute gangrenous cholecystitis. 3. Status post laparoscopic cholecystectomy, postoperative day 3. 4. Fever. 5. Tachycardia. 6. Sepsis. 7. Hypertension. 8. Leukocytosis with granulocytosis. 9. Microcytic anemia. 10. Status post packed red blood cell transfusion x 2. 11. Leukocytosis with granulocytosis. 12. Noninsulin requiring diabetes mellitus. 13. Hyponatremia 14. Hypocalcemia. 15. Hypomagnesemia. 16. Hyperbilirubinemia and transaminitis (resolving). 17. Questionable multiple species versus contamination urinary tract infection with proteinuria, glycosuria, microscopic hematuria, pyuria, bacteriuria and funguria. 18. Status post laparoscopic cholecystectomy with intraoperative cholangiogram postoperative day 3. 19. Acute cholecystitis and symptomatic cholelithiasis with distended gallbladder. 20. Questionable Insomnia. 21. Hypertension. 22. Tachycardia. 23. Questionable anorexia. 24. Diabetic gastroparesis. 1. Acute gangrenous cholecystitis, secondary to cholelithiasis. 2. Status post laparoscopic cholecystectomy and intraoperative cholangiogram, postop day 2. 3. Hypertension. 4. Sepsis with high-grade fever, leukocytosis, granulocytosis, tachycardia. 5. Microcytic anemia, status post packed red blood cell transfusion x 2. 6. Leukocytosis with granulocytosis. 7. Hyponatremia. 8. Noninsulin requiring type 2 diabetes mellitus with hyperglycemia. 9. Hyperbilirubinemia. 10. Mild transaminitis. 11. Questionable anorexia. 12. Questionable urinary tract infection with multiple species and proteinuria , glycosuria, microscopic hematuria, pyuria and funguria. 13. Status post packed red blood cell transfusion x 2. 14. Status post laparoscopic cholecystectomy. 1. Acute cholecystitis with cholelithiasis and gallbladder wall thickening. 2. Acute gangrenous cholecystitis and cholelithiasis. 3. Status post laparoscopic cholecystectomy and intraoperative cholangiogram. 4. High-grade fever. 5. Questionable sepsis versus systemic inflammatory response syndrome. 6. Tachycardia. 7. Hypertension. 8. Leukocytosis with granulocytosis. 9. Microcytic anemia and decreasing hemoglobin and hematocrit. 10. Mild hyponatremia. 12. Noninsulin requiring type 2 diabetes mellitus with hyperglycemia. 13. Hypomagnesemia. 14. Hyperbilirubinemia. 15. Questionable mild transaminitis. 16. Questionable urinary tract infection with proteinuria, glycosuria, microscopic hematuria, pyuria, funguria, with multiple urinary tract infections...multiple species urinary tract infection. 17. O-positive blood type. 18. Acute cholecystitis with nonvisualization of gallbladder on HIDA scan, and multiple cholelithiasis and gallbladder sludge with...with...with just moderately distended gallbladder. 19. Tachycardia. 20. History of coronary artery disease, history of angioplasty of obtuse marginal-1 21. Status post laparoscopic cholecystectomy and intraoperative cholangiogram, postoperative day #1. 1. Abdominal pain involving upper abdomen, right upper quadrant. 2. Possible acute cholecystitis with multiple cholelithiasis and distended gallbladder. 3. Fatty pancreatic atrophy. 4. Fecal stasis and constipation. 5. 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 6. Gallbladder sludge with distended gallbladder and cholelithiasis. 7. Hypertension. 8. Leukocytosis. 9. Microcytic anemia and thalassemia intermedia. 10. Type 2 diabetes mellitus. 11. Mild hyperbilirubinemia. 12. History of hypertension, diabetes, dyslipidemia and coronary artery disease. 13. Proteinuria, glycosuria, microscopic hematuria, pyuria, funguria. 14. History of coronary artery disease, coronary angioplasty. 15. Anemia. PLAN: At this time, patient has to be continued on serial labs. CONSULTATIONS: Surgical, infectious disease, GI consultation. The patient's fever curve needs to be monitored. The patient is on meropenem 1 g IV q. 12. The patient requires repeat ID followup and evaluation. CURRENT DISCHARGE MEDICATIONS: 1. Actigall 300 mg twice a day. 2. Diovan 320 mg daily. 3. Heparin 5000 subQ q. 12. 4. Toviaz 4 mg daily. 5. Humalog medium dose sliding scale coverage a.c. and at bedtime 6. Lopressor 25 mg q. 8. 7. Meropenem 1 g IV q. 12 8. Periactin 4 mg twice a day. 9. Protonix 40 mg daily. 10. Reglan 5 mg IV q. 12. 11. 0.9 normal saline at 50 mL an hour. 12. Tylenol 650 q. 6 p.r.n. Consistent carbohydrate diet. I's and O's, out of bed, SURENDRA atkins, SCDs. At present, patient is awaiting for reevaluation by surgery, GI, infectious disease and depending upon the patient's evaluation by them and depending upon the patient's hemodynamic status and fever status, the patient will be considered for transfer to TCU if medically stable which has been explained and discussed with the patient at length and all questions and concerns answered. In addition, the patient's metoprolol will be changed to 50 mg twice a day because of hypertension and tachycardia. The patient has been updated about her condition, diagnosis, treatment plan, management plan at length. The patient has been advised out of bed ad terrell. Ambulate. At present, the patient also required Ambien for sleep last night which will be ordered for as needed p.r.n. PATIENT ACCEPTED TO TCU PATIENT WILL BE DISCHARGED TO TCU UNDER SERVICE. Dictated and electronically signed, not read. Ayan Humphries MD Discharge Plan - Follow Up Plan Condition: FAIR Disposition: Still A Patient Instructions: Cholecystitis (DC), Gallstones (DC), Pneumococcal Vaccine for Adults (DC), Laparoscopic Cholecystectomy (DC) Additional Instructions: Patient being discharge to TCU. Referrals: Ayan Humphries MD [Primary Care Provider] -
== END 2017-02-06 11:49 | DRG 417 ==
LOC: ED 05:20 → EROBSV 07:40 → OBSVTOIN 13:55 → ERH 14:17 → 5RSO 15:41
PROVIDERS: ADMIT Internal Medicine; ATTEND Internal Medicine
PROC: BF131ZZ Fluoroscopy of Gallbladder and Bile Ducts using Low Osmolar Contrast (ICD-10-PCS; 2017-02-02)
PROC: 0FT44ZZ Resection of Gallbladder, Percutaneous Endoscopic Approach (ICD-10-PCS; principal; 2017-02-02 20:30)
PROC: 30233N1 Transfusion of Nonautologous Red Blood Cells into Peripheral Vein, Percutaneous Approach (ICD-10-PCS; 2017-02-03)
DX: K80.00 Calculus of gallbladder with acute cholecystitis without obstruction (principal); A41.9 Sepsis, unspecified organism; R65.20 Severe sepsis without septic shock; N17.9 Acute kidney failure, unspecified; E11.43 Type 2 diabetes mellitus with diabetic autonomic (poly)neuropathy; K31.84 Gastroparesis; E11.65 Type 2 diabetes mellitus with hyperglycemia; D56.1 Beta thalassemia; E87.1 Hypo-osmolality and hyponatremia; N39.0 Urinary tract infection, site not specified; E83.42 Hypomagnesemia; K86.89 Other specified diseases of pancreas; I10 Essential (primary) hypertension; E78.5 Hyperlipidemia, unspecified; K59.00 Constipation, unspecified; M85.80 Other specified disorders of bone density and structure, unspecified site; M47.9 Spondylosis, unspecified; I25.10 Atherosclerotic heart disease of native coronary artery without angina pectoris; R31.29 Other microscopic hematuria; R63.0 Anorexia; E83.51 Hypocalcemia; Z68.26 Body mass index [BMI] 26.0-26.9, adult; Z79.84 Long term (current) use of oral hypoglycemic drugs; Z95.5 Presence of coronary angioplasty implant and graft; Z79.82 Long term (current) use of aspirin

== ENCOUNTER 2017-02-06 11:52 | Inpatient (IN) | payer OTHER, BC ==
[2017-02-06] MEDS: Sodium Chloride 0.9% 1,000 ML IV SCH (14:56)
[2017-02-06 17:13] VITALS: RESP 18
[2017-02-06] MEDS: Insulin Lispro (humaLOG) MEDIUM Coverage SC SCH ×2 (17:47→22:20)
[2017-02-06] MEDS: Pantoprazole 40 mg EC Tab PO SCH (17:49)
[2017-02-06] MEDS ORDERED: Meropenem 1g/NS 100mL IVPB 100 ML IVPB SCH (18:00)
--- NOTE | 2017-02-06 18:10 | CP.PCM.PN ---
Subjective - Date & Time of Evaluation Date of Evaluation: 02/06/17 Time of Evaluation: 18:07 - Subjective Subjective: Surgery for Dr. Downs Pt s&e. TOÑITO. Tolerating PO. No BM. +void. +amb. Denies F/C/N/V/D/CP/SOB. Pt transfered to TCU. Objective - Vital Signs/Intake and Output Vital Signs (last 24 hours): Temp Pulse Resp BP Pulse Ox 98.1 F 93 H 18 175/78 H 96 02/06/17 17:32 02/06/17 17:49 02/06/17 17:32 02/06/17 17:49 02/06/17 16:30 - Medications Medications: Current Medications Acetaminophen (Tylenol 325mg Tab) 650 mg PO Q6H PRN; Protocol PRN Reason: Fever >100.4 F Cyproheptadine HCl (Periactin) 4 mg PO BID GEMINI PRN Reason: Protocol Last Admin: 02/06/17 17:50 Dose: 4 mg Docusate Sodium (Colace) 100 mg PO DAILY [facility] Heparin Sodium (Porcine) (Heparin) 5,000 units SC Q12 GEMINI PRN Reason: Protocol Home Med (Home Med) 1 unit PO DAILY GEMINI PRN Reason: Protocol Sodium Chloride (Sodium Chloride 0.9%) 1,000 mls @ 50 mls/hr IV .Q20H [facility] Last Admin: 02/06/17 14:56 Dose: 50 mls/hr Meropenem 1g/NS 100mL IVPB (Meropenem 1g/Ns 100ml Ivpb) 100 mls @ 100 mls/hr IVPB Q8 GEMINI PRN Reason: Protocol Stop: 02/16/17 22:01 Insulin Human Lispro (Humalog Med) 0 units SC ACHS GEMINI PRN Reason: Protocol Last Admin: 02/06/17 17:47 Dose: 3 units Metoclopramide HCl (Reglan) 5 mg IVP Q12 GEMINI PRN Reason: Protocol Metoprolol Tartrate (Lopressor) 50 mg PO 0800,1700 GEMINI PRN Reason: Protocol Last Admin: 02/06/17 17:49 Dose: 50 mg Pantoprazole Sodium (Protonix Ec Tab) 40 mg PO 0630,1630 GEMINI PRN Reason: Protocol Last Admin: 02/06/17 17:49 Dose: 40 mg Ursodiol (Actigall) 300 mg PO BID GEMINI PRN Reason: Protocol Last Admin: 02/06/17 17:50 Dose: 300 mg Valsartan (Diovan) 320 mg PO DAILY GEMINI PRN Reason: Protocol Zolpidem Tartrate (Ambien) 5 mg PO HS PRN; Protocol PRN Reason: Insomnia - Constitutional Appears: No Acute Distress - Head Exam Head Exam: ATRAUMATIC, NORMAL INSPECTION, NORMOCEPHALIC - Eye Exam Eye Exam: EOMI, Normal appearance, PERRL Pupil Exam: NORMAL ACCOMODATION, PERRL - ENT Exam ENT Exam: Mucous Membranes Moist, Normal Exam - Neck Exam Neck Exam: Full ROM, Normal Inspection. absent: Lymphadenopathy - Respiratory Exam Respiratory Exam: Clear to Ausculation Bilateral, NORMAL BREATHING PATTERN. absent: Accessory Muscle Use, Respiratory Distress - Cardiovascular Exam Cardiovascular Exam: REGULAR RHYTHM, +S1, +S2. absent: Murmur - GI/Abdominal Exam GI & Abdominal Exam: Soft, Normal Bowel Sounds. absent: Distended, Firm, Guarding, Rigid, Tenderness Additional comments: Incision C/D/I - Extremities Exam Extremities Exam: Full ROM, Normal Capillary Refill, Normal Inspection. absent : Joint Swelling, Pedal Edema - Neurological Exam Neurological Exam: Alert, Awake, CN II-XII Intact, Normal Gait, Oriented x3 - Psychiatric Exam Psychiatric exam: Normal Affect, Normal Mood - Skin Skin Exam: Dry, Intact, Normal Color, Warm Assessment and Plan - Assessment and Plan (Free Text) Assessment: 71F s/p laparoscopic cholecystectomy POD4 Path: Gangrenous cholecystitis Plan: - tolerating diet - monitor vitals - Percocet PO for pain control - continue Abx as per ID - serial abd exam - encourage ambulation/IS/Stockings Pt discussed with Dr. Downs
[2017-02-06] MEDS: Meropenem 1g/NS 100mL IVPB 100 ML IVPB SCH (22:17)
--- NOTE | 2017-02-06 23:09 | PN ---
DATE: 02/06/2017 ADDENDUM This is an addendum to the GI progress report. SUBJECTIVE: This patient was seen and evaluated earlier. The patient feels much better. PHYSICAL EXAMINATION: VITAL SIGNS: Temperature is 98.1, blood pressure 175/81, pulse 93, respirations 18. HEENT: Atraumatic, anicteric. NECK: Supple. HEART: S1, S2 heard. LUNGS: Bilateral air entry present. ABDOMEN: Soft. There is no tenderness except in the trocar site, incision site. LABORATORY DATA: Hemoglobin 9.2, hematocrit 27.7, WBC 10.0, platelets 252. Chemistries, LFTs essentially unremarkable. IMPRESSION: This 71-year-old patient had an acute gangrenous gallbladder status post cholecystectomy with intraoperative cholangiograms negative. At present, patient is on meropenem, antibiotics. LFTs normal. Other comorbidities include diabetes mellitus, hypertension. RECOMMENDATIONS: Followup of the LFTs presently, on Actigall. LFTs have normalized. Reglan can be discontinued as the patient is tolerating the diet. Thank you very much for allowing us to participate in the care of the patient. Tiarra Chaves MD cc: [id number] TT: 02/06/2017 23:09:09 Confirmation # [id number] Dictation # [id number] MTDD
[2017-02-07] MEDS: Meropenem 1g/NS 100mL IVPB 100 ML IVPB SCH ×3 (05:33→21:56)
[2017-02-07] MEDS: Pantoprazole 40 mg EC Tab PO SCH ×2 (05:34→17:00)
[2017-02-07 06:43] LABS: ADD MANUAL DIFF? NO
[2017-02-07 07:15] LABS: BASO # 0.03 K/mm3 (0.0-2.0); BASO % 0.4 % (0.0-3.0); EOS # 0.3 (0.0-0.7); EOS % 3.4 % (1.5-5.0); GRAN # 5.35 (1.4-6.5); GRAN % 63.3 % (50.0-68.0); HEMATOCRIT 27.8 % (36.0-48.0); LYMPH # 1.9 (1.2-3.4); LYMPH % 22.7 % (22.0-35.0); MEAN CORPUSCULAR HEMOGLOBIN 20.1 pg (25.0-35.0); MEAN CORPUSCULAR HGB CONC 33.5 g/dl (31.0-37.0); MONO # 0.9 (0.1-0.6); MONO % 10.2 % (1.0-6.0); PLATELET COUNT 274 10^3/uL (120.0-450.0); RED CELL DISTRIBUTION WIDTH 33.4 % (11.5-14.5); WHITE BLOOD COUNT 8.5 10^3/ul (4.5-11.0)
[2017-02-07 07:27] LABS: ALB/GLOB RATIO 0.9 (1.1-1.8); ALKALINE PHOSPHATASE 48 U/L (38-133); ALT/SGPT 35 U/L (7-56); AST/SGOT 24 U/L (15-39); BILIRUBIN,TOTAL 1.3 mg/dL (0.2-1.3); BLOOD UREA NITROGEN 8 mg/dL (7-21); CALCIUM 8.6 mg/dL (8.4-10.5); CARBON DIOXIDE 23 mmol/L (21-33); CHLORIDE 107 mmol/L (95-110); GFR AFRICAN-AMERICAN > 60; GLUCOSE,RANDOM 158 mg/dL (70-110); POTASSIUM 4.5 mmol/L (3.6-5.0); SODIUM 138 mmol/L (132-148); TOTAL PROTEIN 7.2 g/dL (5.8-8.3)
[2017-02-07] MEDS: Insulin Lispro (humaLOG) MEDIUM Coverage SC SCH ×4 (08:10→21:55)
[2017-02-07] MEDS: Sodium Chloride 0.9% 1,000 ML IV SCH (08:11)
[2017-02-07] MEDS: TOVIAZ 4 MG PO SCH (10:22)
--- NOTE | 2017-02-07 11:02 | CP.PCM.PN ---
Subjective - Date & Time of Evaluation Date of Evaluation: 02/07/17 Time of Evaluation: 07:00 - Subjective Subjective: Surgery: Dr. Downs Pt seen and examined. No acute overnight events. States she's feeling well and denies any complaints. Tolerating regular diet and denies N/V, F/C. Objective - Vital Signs/Intake and Output Vital Signs (last 24 hours): Temp Pulse Resp BP Pulse Ox 98.1 F 91 H 18 186/84 H 96 02/06/17 17:32 02/07/17 08:10 02/06/17 17:32 02/07/17 08:10 02/06/17 16:30 - Medications Medications: Current Medications Acetaminophen (Tylenol 325mg Tab) 650 mg PO Q6H PRN; Protocol PRN Reason: Fever >100.4 F Alprazolam (Xanax) 0.25 mg PO BID GEMINI PRN Reason: Protocol Stop: 02/14/17 11:01 Clonidine HCl (Catapres) 0.1 mg PO Q6H PRN PRN Reason: FOR SBP>=175/ORDBP>=100MMG Cyproheptadine HCl (Periactin) 4 mg PO BID GEMINI PRN Reason: Protocol Last Admin: 02/07/17 10:22 Dose: 4 mg Docusate Sodium (Colace) 100 mg PO DAILY [facility] Last Admin: 02/07/17 10:22 Dose: 100 mg Heparin Sodium (Porcine) (Heparin) 5,000 units SC Q12 GEMINI PRN Reason: Protocol Last Admin: 02/07/17 10:30 Dose: Not Given Home Med (Home Med) 1 unit PO DAILY GEMINI PRN Reason: Protocol Last Admin: 02/07/17 10:22 Dose: 1 unit Meropenem 1g/NS 100mL IVPB (Meropenem 1g/Ns 100ml Ivpb) 100 mls @ 100 mls/hr IVPB Q8 GEMINI PRN Reason: Protocol Stop: 02/16/17 22:01 Last Admin: 02/07/17 05:33 Dose: 100 mls/hr Insulin Human Lispro (Humalog Med) 0 units SC ACHS GEMINI PRN Reason: Protocol Last Admin: 02/07/17 08:10 Dose: 1 units Metoclopramide HCl (Reglan) 5 mg IVP Q12 GEMINI PRN Reason: Protocol Last Admin: 02/07/17 10:23 Dose: 5 mg Metoprolol Tartrate (Lopressor) 50 mg PO 0800,1700 GEMINI PRN Reason: Protocol Last Admin: 02/07/17 08:10 Dose: 50 mg Pantoprazole Sodium (Protonix Ec Tab) 40 mg PO 0630,1630 GEMINI PRN Reason: Protocol Last Admin: 02/07/17 05:34 Dose: 40 mg Ursodiol (Actigall) 300 mg PO BID GEMINI PRN Reason: Protocol Last Admin: 02/07/17 10:22 Dose: 300 mg Valsartan (Diovan) 320 mg PO DAILY GEMINI PRN Reason: Protocol Last Admin: 02/07/17 10:22 Dose: 320 mg Zolpidem Tartrate (Ambien) 5 mg PO HS PRN; Protocol PRN Reason: Insomnia Last Admin: 02/06/17 22:27 Dose: 5 mg - Labs Labs: 02/07/17 06:10 02/07/17 06:10 - Constitutional Appears: Well, No Acute Distress - Head Exam Head Exam: ATRAUMATIC, NORMOCEPHALIC - Eye Exam Eye Exam: Normal appearance - ENT Exam ENT Exam: Mucous Membranes Moist - Respiratory Exam Respiratory Exam: NORMAL BREATHING PATTERN - Cardiovascular Exam Cardiovascular Exam: RRR - GI/Abdominal Exam GI & Abdominal Exam: Soft. absent: Distended, Guarding, Tenderness, Rebound - Extremities Exam Extremities Exam: absent: Tenderness - Neurological Exam Neurological Exam: Alert, Awake, Oriented x3 - Skin Skin Exam: Dry, Warm Assessment and Plan - Assessment and Plan (Free Text) Assessment: 71F s/p lap nicolas; POD#5 Plan: - Tolerating regular diet - afebrile; w/o leukocytosis - ABX as per ID recs - Encourage ambulation/PT - d/w Dr. Himanshu Montejo, PGY-2 Surgery
--- NOTE | 2017-02-07 11:28 | HP ---
HISTORY OF PRESENT ILLNESS: The patient is seen in room 302, bed 1. The patient is out of bed to air. The patient still complains of decreased appetite. The patient states that no abdominal pain, diarrhea or constipation. REVIEW OF SYSTEMS: A 13-system review was done. Pertinent positive and negative dictated above. CODE STATUS: Full code. LIVING WILL AND ADVANCED DIRECTIVE: None. ALLERGIES: None. PHYSICAL EXAMINATION: GENERAL: The patient is seen out of bed to chair. VITAL SIGNS: T-max 98.1. Heart rate is up at 91-93. Blood pressure ranging from 186/84 to 175/78. Respiration 18, O2 sat 96%. HEAD: Normocephalic, atraumatic. EENT: Shows pinkish, pale conjunctivae, anicteric sclerae. No oropharyngeal lesion. NECK: No neck rigidity. CHEST: Kyphosis. LUNGS: Shows no rales, crackles, or wheezing. CARDIOVASCULAR: Shows S1, S2, regular rhythm. ABDOMEN: Soft, positive bowel sounds. Very slight voluntary guarding. No rebound tenderness. GENITALIA: Female. RECTAL: Deferred. EXTREMITIES: Shows no pitting edema, no calf tenderness, no Homans' sign. NEUROLOGIC: The patient is alert, awake, oriented x 3. Cranial nerves II-XII intact. GAIT: Independent, intact. VASCULAR: Has palpable pulses. Cranial nerves II-XII grossly intact. PSYCHIATRIC: Positive for history of anxiety. MUSCULOSKELETAL: Shows a body mass index of 26.2. DIAGNOSTICS: WBC 8.5, hemoglobin and hematocrit 9.3 and 28, MCV 60, platelets 274. Differential is normal. Sodium 138, potassium 4.5, chloride 107, CO2 23, anion gap 13, BUN 8, creatinine 0.7, GFR gr eater than 60. Random glucose 158, calcium 8.6. LFTs are all normal. Fingerstick blood sugar 183, 198, 222. All the cultures are negative. Repeat cultures are negative. IMPRESSION: 1. Deconditioning. 2. Acute gangrenous cholecystitis. 3. Status post laparoscopic cholecystectomy, postoperative day 5. 4. Postoperative fever. 5. Tachycardia. 6. Sepsis. 7. Hypertension. 8. Tachycardia. 9. Anxiety. 10. Microcytic anemia with history of thalassemia. 11. Noninsulin-requiring diabetes mellitus. 12. Gallbladder sludge. 13. Insomnia. 14. Hypertension. 15. Overactive bladder. 16. History of single vessel coronary artery disease, history of angioplasty. 17. Anorexia. 18. Diabetic gastroparesis. 19. Anxiety disorder. CURRENT CONSULTATIONS: 1. Surgery. 2. Cardiology. 3. Gastroenterology. 4. Infectious disease. CURRENT MEDICATIONS: 1. Actigall 300 mg twice a day. 2. Ambien 5 mg at bedtime p.r.n. 3. The patient is started on clonidine 0.1 mg q. 6 hours p.r.n. 4. Colace 100 mg daily. 5. Diovan 320 mg daily. 6. Heparin 5000 subQ q. 12. 7. Toviaz 4 mg p.o. daily. 8. Humalog medium dose sliding scale coverage a.c. and at bedtime. 9. Lopressor 50 mg twice a day. 10. Meropenem 1 g IV q. 8. 11. Periactin 4 mg twice a day. 12. Protonix 40 mg twice a day. 13. Reglan 5 mg IV q. 12. 14. Tylenol 650 q. 6 p.r.n. 15. Xanax 0.25 p.o. b.i.d. Incentive spirometry ordered. The patient has been ordered out of bed, SURENDRA atkins, SCDs. The pat ient has been ordered diet supplements, Glucerna 1 shake. The patient at present has been seen by [facility] stro[facility]ology and surgery. Gastroenterology recommending discontinuation of the Reglan which is debra infante ordered. At present, the patient is to be continued on TCU stay as recommended, and to complete IV antibiotic as ordered by infectious disease. Dictated and electronically signed; not read. Ayan Humphries MD cc: [id number] TT: 02/07/2017 11:27:22 henrry
--- NOTE | 2017-02-07 16:17 | CP.PCM.CON ---
History of Present Illness - History of Present Illness History of Present Illness: 71 year old female with PMH of CAD S/P PCI with stents placed, DM, chronic anemia, HTN, thalassemia was initially admitted in [facility] because of acute gangrenous cholecystitis and underwent laparoscopic cholecystectomy. She has done well and is now transferred to [facility] for continued medical therapy and physical rehabilitation. Infectious Diseases consult is requested to evaluate the continued need for antibiotics. Currently the patient is comfortable in bed, not in distress. No fever or chills, no nausea or vomiting, no diarrhea, eating well, no headache or dizziness, no chest pain, no sore throat, no dysuria, no diarrhea, no joint or muscle aches. Review of Systems - Review of Systems All systems: reviewed and no additional remarkable complaints except (as per HPI ) Past Patient History - Infectious Disease Hx of Infectious Diseases: None - Past Medical History & Family History Past Medical History?: Yes - Past Social History Smoking Status: Never Smoked - CARDIAC Hx Hypertension: Yes - ENDOCRINE/METABOLIC Hx Diabetes Mellitus Type 1: Yes - HEMATOLOGICAL/ONCOLOGICAL Hx Anemia: Yes - MUSCULOSKELETAL/RHEUMATOLOGICAL Hx Falls: No - GASTROINTESTINAL Other/Comment: ercp 2008, duodenitis, obstructive jaundice, dilated cbd, fatty liver, diabetic gastrophoresis, chronic gastritis - GENITOURINARY/GYNECOLOGICAL Hx Genitourinary Disorders: (pt denies overactive bladder) Hx Urinary Tract Infection: Yes Other/Comment: renal cyst - PSYCHIATRIC Hx Substance Use: No - SURGICAL HISTORY Hx Surgeries: Yes (tubal) - ANESTHESIA Hx Anesthesia: Yes Hx Anesthesia Reactions: No Hx Malignant Hyperthermia: No Meds Allergies/Adverse Reactions: Allergies Allergy/AdvReac Type Severity Reaction Status Date / Time No Known Allergies Allergy Verified 02/02/17 05:37 - Medications Medications: Current Medications Acetaminophen (Tylenol 325mg Tab) 650 mg PO Q6H PRN; Protocol PRN Reason: Fever >100.4 F Cyproheptadine HCl (Periactin) 4 mg PO BID [facility] PRN Reason: Protocol Last Admin: 02/06/17 17:50 Dose: 4 mg Docusate Sodium (Colace) 100 mg PO DAILY [facility] Heparin Sodium (Porcine) (Heparin) 5,000 units SC Q12 [facility] PRN Reason: Protocol Last Admin: 02/06/17 22:10 Dose: Not Given Home Med (Home Med) 1 unit PO DAILY [facility] PRN Reason: Protocol Sodium Chloride (Sodium Chloride 0.9%) 1,000 mls @ 50 mls/hr IV .Q20H [facility] Last Admin: 02/06/17 14:56 Dose: 50 mls/hr Meropenem 1g/NS 100mL IVPB (Meropenem 1g/Ns 100ml Ivpb) 100 mls @ 100 mls/hr IVPB Q8 [facility] PRN Reason: Protocol Stop: 02/16/17 22:01 Last Admin: 02/07/17 05:33 Dose: 100 mls/hr Insulin Human Lispro (Humalog Med) 0 units SC ACHS [facility] PRN Reason: Protocol Last Admin: 02/06/17 22:20 Dose: Not Given Metoclopramide HCl (Reglan) 5 mg IVP Q12 [facility] PRN Reason: Protocol Last Admin: 02/06/17 22:18 Dose: 5 mg Metoprolol Tartrate (Lopressor) 50 mg PO 0800,1700 [facility] PRN Reason: Protocol Last Admin: 02/06/17 17:49 Dose: 50 mg Pantoprazole Sodium (Protonix Ec Tab) 40 mg PO 0630,1630 [facility] PRN Reason: Protocol Last Admin: 02/07/17 05:34 Dose: 40 mg Ursodiol (Actigall) 300 mg PO BID [facility] PRN Reason: Protocol Last Admin: 02/06/17 17:50 Dose: 300 mg Valsartan (Diovan) 320 mg PO DAILY [facility] PRN Reason: Protocol Zolpidem Tartrate (Ambien) 5 mg PO HS PRN; Protocol PRN Reason: Insomnia Last Admin: 02/06/17 22:27 Dose: 5 mg Physical Exam - Constitutional Appears: Non-toxic, No Acute Distress - Head Exam Head Exam: NORMAL INSPECTION - ENT Exam ENT Exam: Mucous Membranes Moist - Neck Exam Neck exam: Negative for: Lymphadenopathy, Meningismus - Respiratory Exam Respiratory Exam: Decreased Breath Sounds - Cardiovascular Exam Cardiovascular Exam: +S1, +S2 - GI/Abdominal Exam GI & Abdominal Exam: Soft. absent: Tenderness Results - Vital Signs Recent Vital Signs: Last Vital Signs Temp 98.1 F 02/06/17 17:32 Pulse 93 H 02/06/17 17:49 Resp 18 02/06/17 17:32 BP 175/78 H 02/06/17 17:49 Pulse Ox 96 02/06/17 16:30 - Labs Result Diagrams: 02/07/17 06:10 02/07/17 06:10 Assessment & Plan - Assessment and Plan (Free Text) Plan: Assessment Severe sepsis with acute renal failure (estimated GFR 49) secondary to acute gangrenous cholecystitis S/P laparoscopic cholecystectomy POD #5, S/P post- operative fever, which has now resolved CAD S/P PCI with stents placed DM chronic anemia HTN thalassemia Plan continue Meropenem day 5 and monitor clinically; may be able to discontinue antibiotics in the next 48-72 hours
[2017-02-08] MEDS: Meropenem 1g/NS 100mL IVPB 100 ML IVPB SCH ×2 (05:39→14:25)
[2017-02-08] MEDS: Pantoprazole 40 mg EC Tab PO SCH ×2 (05:40→18:08)
[2017-02-08] MEDS: Insulin Lispro (humaLOG) MEDIUM Coverage SC SCH ×4 (06:55→22:41)
[2017-02-08] MEDS: TOVIAZ 4 MG PO SCH (09:21)
[2017-02-08 11:03] VITALS: TEMP 98.7; O2SAT 98
--- NOTE | 2017-02-08 14:51 | CP.PCM.PN ---
Subjective - Date & Time of Evaluation Date of Evaluation: 02/08/17 Time of Evaluation: 10:00 - Subjective Subjective: Comfortable in a chair, not in distress, no fevers overnight, no nausea, eating well, no abdominal pain, no diarrhea. Objective - Vital Signs/Intake and Output Vital Signs (last 24 hours): Temp Pulse Resp BP Pulse Ox 98.7 F 75 18 150/75 98 02/08/17 10:00 02/08/17 10:00 02/08/17 10:00 02/08/17 10:00 02/08/17 10:00 - Medications Medications: Current Medications Acetaminophen (Tylenol 325mg Tab) 650 mg PO Q6H PRN; Protocol PRN Reason: Fever >100.4 F Alprazolam (Xanax) 0.25 mg PO BID [facility] PRN Reason: Protocol Stop: 02/14/17 11:01 Last Admin: 02/08/17 09:24 Dose: 0.25 mg Clonidine HCl (Catapres) 0.1 mg PO Q6H PRN PRN Reason: FOR SBP>=175/ORDBP>=100MMG Last Admin: 02/07/17 11:00 Dose: 0.1 mg Cyproheptadine HCl (Periactin) 4 mg PO BID [facility] PRN Reason: Protocol Last Admin: 02/08/17 09:36 Dose: Not Given Docusate Sodium (Colace) 100 mg PO DAILY [facility] Last Admin: 02/08/17 10:07 Dose: Not Given Heparin Sodium (Porcine) (Heparin) 5,000 units SC Q12 [facility] PRN Reason: Protocol Last Admin: 02/08/17 10:07 Dose: Not Given Home Med (Home Med) 1 unit PO DAILY [facility] PRN Reason: Protocol Last Admin: 02/08/17 09:21 Dose: 1 unit Insulin Human Lispro (Humalog Med) 0 units SC ACHS [facility] PRN Reason: Protocol Last Admin: 02/08/17 12:08 Dose: Not Given Metoprolol Tartrate (Lopressor) 50 mg PO 0800,1700 [facility] PRN Reason: Protocol Last Admin: 02/08/17 07:50 Dose: 50 mg Pantoprazole Sodium (Protonix Ec Tab) 40 mg PO 0630,1630 [facility] PRN Reason: Protocol Last Admin: 02/08/17 05:40 Dose: 40 mg Ursodiol (Actigall) 300 mg PO 0800,1800 [facility] PRN Reason: Protocol Valsartan (Diovan) 320 mg PO DAILY [facility] PRN Reason: Protocol Last Admin: 02/08/17 09:20 Dose: 320 mg Zolpidem Tartrate (Ambien) 5 mg PO HS PRN; Protocol PRN Reason: Insomnia Last Admin: 02/07/17 22:01 Dose: 5 mg - Labs Labs: 02/07/17 06:10 02/07/17 06:10 - Constitutional Appears: Non-toxic, No Acute Distress - Head Exam Head Exam: NORMAL INSPECTION - ENT Exam ENT Exam: Mucous Membranes Moist - Neck Exam Neck Exam: absent: Lymphadenopathy, Meningismus - Respiratory Exam Respiratory Exam: Decreased Breath Sounds - Cardiovascular Exam Cardiovascular Exam: +S1, +S2 - GI/Abdominal Exam GI & Abdominal Exam: Soft. absent: Tenderness Assessment and Plan - Assessment and Plan (Free Text) Plan: Assessment Severe sepsis with acute renal failure (estimated GFR 49) secondary to acute gangrenous cholecystitis S/P laparoscopic cholecystectomy POD #6, S/P post- operative fever, which has now resolved; clinically much improved CAD S/P PCI with stents placed DM chronic anemia HTN thalassemia Plan on Meropenem day 6 - we can change to PO Augmentin to complete the course of therapy (ie. 2-3 more days of antibiotics)
--- NOTE | 2017-02-08 15:04 | PN ---
DATE: 02/08/2017 Seen and examined at the bedside earlier today in TCU. The patient is moving her bowels with no comp laints. No melena or bright red blood. Denies any abdominal pain. No nausea, vomiting. Tolerating her oral intake. VITAL SIGNS: Temperature 98.7, blood pressure 150/75, pulse 75, respirations 18, 98 on room air. BLOOD WORK: No new labs are noted except labs reviewed from 02/07. Her WBC 8.5, H and H is 9.3 and 27 .8, platelets of 274. Sodium 138, K 4.5, BUN 8, creatinine 0.7. LFTs are within normal limits. PHYSICAL EXAMINATION: HEENT: Sclera is anicteric. NECK: Supple. CARDIAC: S1, S2. LUNGS: Clear. ABDOMEN: With bowel sounds, soft, not tender. No rebound or guarding. ASSESSMENT: Acute gangrenous cholecystitis, status post laparoscopic cholecystectomy with intraopera tive cholangiogram that was negative, status post fever. Other comorbidities include hypertension an d diabetes mellitus. PLAN: Continue to follow up LFTs, which are currently within normal limits. She is on Actigall. Co ntinue GI prophylaxis. She is on Protonix b.i.d. On DVT prophylaxis, heparin. On stool softeners a nd her IV antibiotic meropenem is discontinued and she has been started on oral antibiotics of amoxic illin. The patient was seen and case discussed with Dr. Chaves. Shelbi JEFFRIES cc: [id number] TT: 02/08/2017 15:03:25 Confirmation # [id number] Dictation # [id number]
--- NOTE | 2017-02-08 15:10 | CP.PCM.PN ---
Subjective - Date & Time of Evaluation Date of Evaluation: 02/08/17 Time of Evaluation: 07:00 - Subjective Subjective: Surgery: Dr. Downs Pt seen and examined. Resting comfortably in bed. States she's feeling well and denies any complaints at this time. Tolerating regular diet w/o N/V. Having BMs and ambulating. Denies F/C. Objective - Vital Signs/Intake and Output Vital Signs (last 24 hours): Temp Pulse Resp BP Pulse Ox 98.7 F 75 18 150/75 98 02/08/17 10:00 02/08/17 10:00 02/08/17 10:00 02/08/17 10:00 02/08/17 10:00 - Medications Medications: Current Medications Acetaminophen (Tylenol 325mg Tab) 650 mg PO Q6H PRN; Protocol PRN Reason: Fever >100.4 F Alprazolam (Xanax) 0.25 mg PO BID [facility] PRN Reason: Protocol Stop: 02/14/17 11:01 Last Admin: 02/08/17 09:24 Dose: 0.25 mg Amoxicillin/Clavulanate Potassium (Augmentin 875 Mg-125 Mg Tab) 1 tab PO Q12 [facility] PRN Reason: Protocol Stop: 02/13/17 22:01 Clonidine HCl (Catapres) 0.1 mg PO Q6H PRN PRN Reason: FOR SBP>=175/ORDBP>=100MMG Last Admin: 02/07/17 11:00 Dose: 0.1 mg Cyproheptadine HCl (Periactin) 4 mg PO BID [facility] PRN Reason: Protocol Last Admin: 02/08/17 09:36 Dose: Not Given Docusate Sodium (Colace) 100 mg PO DAILY [facility] Last Admin: 02/08/17 10:07 Dose: Not Given Heparin Sodium (Porcine) (Heparin) 5,000 units SC Q12 [facility] PRN Reason: Protocol Last Admin: 02/08/17 10:07 Dose: Not Given Home Med (Home Med) 1 unit PO DAILY [facility] PRN Reason: Protocol Last Admin: 02/08/17 09:21 Dose: 1 unit Insulin Human Lispro (Humalog Med) 0 units SC ACHS [facility] PRN Reason: Protocol Last Admin: 02/08/17 12:08 Dose: Not Given Metoprolol Tartrate (Lopressor) 50 mg PO 0800,1700 [facility] PRN Reason: Protocol Last Admin: 02/08/17 07:50 Dose: 50 mg Pantoprazole Sodium (Protonix Ec Tab) 40 mg PO 0630,1630 [facility] PRN Reason: Protocol Last Admin: 02/08/17 05:40 Dose: 40 mg Ursodiol (Actigall) 300 mg PO 0800,1800 [facility] PRN Reason: Protocol Valsartan (Diovan) 320 mg PO DAILY [facility] PRN Reason: Protocol Last Admin: 02/08/17 09:20 Dose: 320 mg Zolpidem Tartrate (Ambien) 5 mg PO HS PRN; Protocol PRN Reason: Insomnia Last Admin: 02/07/17 22:01 Dose: 5 mg - Labs Labs: 02/07/17 06:10 02/07/17 06:10 - Constitutional Appears: Well, No Acute Distress - Head Exam Head Exam: ATRAUMATIC, NORMOCEPHALIC - ENT Exam ENT Exam: Mucous Membranes Moist - Respiratory Exam Respiratory Exam: NORMAL BREATHING PATTERN - Cardiovascular Exam Cardiovascular Exam: RRR - GI/Abdominal Exam GI & Abdominal Exam: Soft. absent: Distended, Guarding, Tenderness, Rebound - Extremities Exam Extremities Exam: absent: Tenderness - Neurological Exam Neurological Exam: Alert, Awake, Oriented x3 - Skin Skin Exam: Dry, Intact, Warm Assessment and Plan - Assessment and Plan (Free Text) Assessment: 71F s/p lap nicolas; POD#6 Plan: - pt ok to DC from surgical standpoint - abx as per ID recs - d/w Dr. Himanshu Montejo, PGY-2 Surgery
--- NOTE | 2017-02-08 17:40 | PN ---
DATE: 02/08/2017 The patient is seen in room 302, bed 1. The patient is out of bed to chair, ambulating. Overnight nicola escobar's notes were reviewed. No adverse events documented. The patient refused tab alarm and bed ala rm. PHYSICAL EXAMINATION: VITAL SIGNS: T-max, patient is afebrile. Pulse 75-84, blood pressure 157/ , 149/82 134/76, resp irations 18, O2 sat 98%. HEAD: Normocephalic, atraumatic. HEENT: Shows pinkish, pale conjunctivae, anicteric sclerae, No oropharyngeal lesion. NECK: No neck rigidity. CHEST: Kyphosis. LUNGS: Shows no rales, crackles, or wheezing. CARDIOVASCULAR: Shows S1, S2, regular rhythm. ABDOMEN: Soft, positive bowel sounds, no rebound tenderness, no guarding, no rigidity, no costoverte bral angle tenderness. GENITALIA: Female. RECTAL: Deferred. EXTREMITIES: Shows no pitting edema, no calf tenderness, no Homans sign. The patient is wearing SURENDRA stockings. Motor strength is 5/5 in upper and lower extremity. . MUSCULOSKELETAL: Shows a body mass index of 26.2. NEUROLOGIC: Cranial nerves II-XII limited. GAIT: Independent. VASCULAR: Palpable pulses. Plantars are downward. DIAGNOSTICS: None from today. Yesterday's diagnostic data reviewed. Fingerstick blood sugars 193, 205, 212, 158, 183, 198. IMPRESSION AND PLAN: 1. Deconditioning. 2. Severe sepsis secondary to acute gangrenous cholecystitis. 3. Status post laparoscopic cholecystectomy, postoperatively day #6. 4. Postoperative fever. 5. Deconditioning. 6. Microcytic anemia with history of thalassemia. 7. Noninsulin requiring type 2 diabetes mellitus. 8. Noninsulin requiring diabetes mellitus. 9. Microcytic anemia. 10. Hypertension. 11. Anxiety disorder. 12. Anorexia. 13. Hypertension. 14. Insomnia. 15. Transaminitis with hyperbilirubinemia. PLAN: At this time, patient seen by the pediatric social worker. The patient is for possible discharge in a.m . CURRENT MEDICATIONS: 1. Actigall 300 mg twice day. 2. Ambien 5 mg at bedtime p.r.n. 3. Augmentin 875 one tablet twice a day. 4. Clonidine 0.6 mg q. 6 hours p.r.n. 5. Colace 100 mg p.o. daily. 6. Diovan 320 mg p.o. daily. 7. Heparin 5000 subQ q. 12. 8. Toviaz 4 mg daily. 9. Humalog medium dose sliding scale coverage a.c. and at bedtime. 10. Lopressor 50 mg twice a day. 11. Periactin 4 mg twice a day. 12. Protonix 40 mg twice a day. 13. Tylenol 650 q. 6 hours p.r.n. for fever greater than or equal to 99.5. 14. Xanax 0.25 mg p.o. b.i.d. The patient will be considered for discharge in a.m. The patient has been cleared by surgery, gastroe nterology. At present, the patient is to be discharged tomorrow. Ayan Humphries MD cc: [id number] TT: 02/08/2017 17:40:11 Confirmation # [id number] Dictation # [id number] dn
[2017-02-08] MEDS: Amoxicillin-Clav 875-125 mg Tab PO SCH (22:40)
[2017-02-09] MEDS: Pantoprazole 40 mg EC Tab PO SCH (06:10)
[2017-02-09] MEDS: Insulin Lispro (humaLOG) MEDIUM Coverage SC SCH ×2 (06:57→11:46)
[2017-02-09 07:55] VITALS: BP 161/82; PULSE 86
[2017-02-09] MEDS: Amoxicillin-Clav 875-125 mg Tab PO SCH (09:41)
[2017-02-09] MEDS: TOVIAZ 4 MG PO SCH (09:45)
--- NOTE | 2017-02-09 14:20 | DS ---
The patient completed the IV antibiotic course while the patient was transferred to TCU. The patient was seen in room 302. The patient is independent with activities of daily living. The patient is a mbulating. Overnight nurse's notes did not document any adverse event. PHYSICAL EXAMINATION: VITAL SIGNS: T-max 98.7, heart rate 75-83, blood pressure 150/75, 149/82, 155/81, 160/82, respiratio n is 18, O2 sat 98%. HEAD: Normocephalic, atraumatic. HEENT: Shows pinkish, pale conjunctivae, anicteric sclerae, no oropharyngeal lesion. NECK: No neck rigidity. CHEST: Kyphosis. LUNGS: Shows no rales, crackles, or wheezing. CARDIOVASCULAR: Shows S1, S2, regular rhythm. ABDOMEN: Soft, positive bowel sounds, healed surgical scar of laparoscopic cholecystectomy. No rebo und tenderness, no costovertebral angle tenderness. GENITALIA: Female. RECTAL: Deferred. EXTREMITIES: Shows no pitting edema, no calf tenderness, no Homans' sign. NEUROLOGIC: The patient is alert, awake, oriented x 3. Cranial nerves II-XII intact. GAIT: Independent. VASCULAR: Palpable pulses. MUSCULOSKELETAL: Shows a body mass index of 26.2. CRANIAL NERVES II-XII: Intact. DIAGNOSTICS: None from today. Fingerstick blood sugar 222, 196, 193, 205, 212, 219, 183. MICROBIOLOGY: Blood bank negative. FINAL IMPRESSION, PLAN, AND DISCHARGE DIAGNOSES: 1. Deconditioning. 2. Severe sepsis, secondary to acute gangrenous cholecystitis. 3. Status post laparoscopic cholecystectomy, postop day 7. 4. Postoperative fever (resolved). 5. Microcytic anemia with history of thalassemia. 6. Noninsulin requiring type 2 diabetes mellitus. 7. Anxiety disorder. 8. Insomnia. 9. Noninsulin requiring diabetes mellitus. 10. Microcytic anemia and thalassemia. 11. Anorexia. 12. Insomnia. 13. Transaminitis and hyperbilirubinemia. PLAN: At this time, patient has been cleared by infectious disease, surgery for discharge. The bahman ent will be discharged home. DISCHARGE MEDICATIONS: The patient is discharged home on: 1. Xanax 0.25 mg b.i.d. p.r.n. 2. Augmentin 1 tab twice a day for 5 days. 3. Ecotrin 81 mg once a day. 4. Periactin 4 mg twice a day. 5. Colace 100 4 mg daily. 6. Toviaz 4 mg daily. 7. Folic acid 1 mg twice a day. 8. Glucotrol 10 mg twice a day or 20 mg daily. 9. Metformin 1000 mg daily. 10. Bystolic 5 or 10 mg daily. 11. Protonix 40 mg daily. 12. Actigall 300 mg twice a day for 1 month. 13. The patient is to resume her Diovan 320 mg daily. DISCHARGE FOLLOWUP: With Dr. Humphries within 1 week. Follow up with Dr. Downs in 1 week. The patient is given a copy of the diabetic and hypertensive, low salt, low cholesterol diet. DISCHARGE FOLLOWUP: With Dr. Humphries within 1 week. The patient, during this hospitalization, was extensively explained about the details of her medical condition, diagnosis, treatment plan, management plan. All treatment and outpatient followup discuss ed and explained to the patient at length and all questions and concerns answered. Time spent in the entire discharge process, more than 45 minutes. Dictated and electronically signed, not read. Ayan Humphries MD cc: [id number] TT: 02/09/2017 14:19:51 en
== END 2017-02-09 14:36 | disposition home or self-care (01) | DRG 871 ==
LOC: TRCU 11:52
PROVIDERS: ADMIT Internal Medicine; ATTEND Internal Medicine
DX: A41.9 Sepsis, unspecified organism (principal); K83.1 Obstruction of bile duct; K81.0 Acute cholecystitis; K31.84 Gastroparesis; K76.0 Fatty (change of) liver, not elsewhere classified; E11.43 Type 2 diabetes mellitus with diabetic autonomic (poly)neuropathy; K83.8 Other specified diseases of biliary tract; N28.1 Cyst of kidney, acquired; D50.9 Iron deficiency anemia, unspecified; D56.9 Thalassemia, unspecified; F41.9 Anxiety disorder, unspecified; G47.00 Insomnia, unspecified; I10 Essential (primary) hypertension; I25.10 Atherosclerotic heart disease of native coronary artery without angina pectoris; Z98.61 Coronary angioplasty status; N32.81 Overactive bladder; R50.82 Postprocedural fever; R65.20 Severe sepsis without septic shock; Z87.440 Personal history of urinary (tract) infections; Z90.49 Acquired absence of other specified parts of digestive tract; R53.81 Other malaise; R00.0 Tachycardia, unspecified; R63.0 Anorexia; M40.209 Unspecified kyphosis, site unspecified; R74.0 Nonspecific elevation of levels of transaminase and lactic acid dehydrogenase [LDH]; K29.80 Duodenitis without bleeding; K29.50 Unspecified chronic gastritis without bleeding; Z68.26 Body mass index [BMI] 26.0-26.9, adult

== ENCOUNTER 2019-02-19 13:08 | Outpatient (CLI) | payer MEDICARE, BC | END 2019-02-19 13:09 | disposition home or self-care (01) | LOC: RAD 13:08 ==